=== PATIENT | male | born 1975 | race Caucasian/White ===

== ENCOUNTER 2022-12-06 10:19 | Outpatient (OUT) | payer BC, SELFPAY ==
[2022-12-06 11:19] LABS: Basophils Absolute Auto 0.1 10^3/uL (0.0-0.1); Basophils Percent Auto 0.5 % (0.2-2.0); Eosinophils Absolute Auto 0.2 10^3/uL (0.0-0.7); Eosinophils Percent Auto 1.1 % (0.9-7.0); Hemoglobin 15.4 g/dL (14.0-18.0); Immature Granulocytes Abs Auto 0.05 10^3/uL (0.00-0.03); Immature Granulocytes Pct Auto 0.4 % (0.0-0.5); Lymphocytes Absolute Auto 3.1 10^3/uL (1.2-3.8); Lymphocytes Percent Auto 22.8 % (20.5-60.0); Mean Corpuscular HGB Conc 34.2 g/dL (29.9-35.2); Mean Corpuscular Hemoglobin 32.4 pg (25.9-34.0); Mean Corpuscular Volume 94.7 fL (80.0-94.0); Mean Platelet Volume 10.6 fL (9.5-13.5); Monocytes Absolute Auto 0.8 10^3/uL (0.3-0.8); Monocytes Percent Auto 5.9 % (1.7-12.0); Neutrophils Absolute Auto 9.4 10^3/uL (1.4-6.5); Neutrophils Percent Auto 69.3 % (43.0-75.0); Platelet Count 249 10^3/uL (150-450); Red Blood Count 4.75 10^6/uL (4.70-6.10); Red Cell Distribution Width 13.2 % (11.0-15.0); White Blood Count 13.5 10^3/uL (4.0-11.0)
[2022-12-06 11:26] LABS: Estimated Average Glucose 105 mg/dL; Glycohemoglobin A1C 5.3 % (4.5-6.2)
[2022-12-06 11:43] LABS: Prostate Specific Antigen Scrn 1.11 ng/mL (<=4.00)
[2022-12-06 12:32] LABS: Alanine Aminotransferase 12 U/L (16-63); Albumin Globulin Ratio 1.2; Albumin Level 3.6 g/dL (3.4-5.0); Alkaline Phosphatase 51 U/L (46-116); Anion Gap 12.1; Aspartate Amino Transferase 14 U/L (15-37); BUN Creatinine Ratio 14.5; Bilirubin Direct 0.1 mg/dL (0.0-0.2); Bilirubin Total 0.3 mg/dL (0.2-1.0); Calcium 8.6 mg/dL (8.5-10.1); Carbon Dioxide 26.9 mmol/L (21.0-32.0); Chloride 108 mmol/L (98-107); Chol HDL Ratio 3.6; Cholesterol 151 mg/dL (<=200); Estimated GFR (African America >60 (>=60); Estimated GFR (Non-African Ame >60 (>=60); Glucose 85 mg/dL (74-106); HDL Cholesterol 42 mg/dL (40-60); Sodium 143 mmol/L (136-145); Thyroid Stimulating Hormone 1.589 uIU/mL (0.358-3.740); Total Protein 6.6 g/dL (6.4-8.2); Triglycerides 40 mg/dL (<=150)
== END 2022-12-06 10:20 | disposition home or self-care (01) ==
PROVIDERS: PCP Family Medicine; Visit Provider Family Medicine
DX: Z00.00 Encounter for general adult medical examination without abnormal findings (principal); E55.9 Vitamin D deficiency, unspecified; Z12.5 Encounter for screening for malignant neoplasm of prostate
CPT/HCPCS: 36415; 80048; 80061; 80076; 82306; 83036; 84443; 85025; G0103

== ENCOUNTER 2023-01-22 21:02 | Outpatient (OUT) | payer BC, SELFPAY | END 2023-01-22 21:03 | disposition home or self-care (01) | LOC: SLEEP 21:02 | PROVIDERS: PCP Family Medicine; Visit Provider Family Medicine | DX: G47.33 Obstructive sleep apnea (adult) (pediatric) (principal); G47.11 Idiopathic hypersomnia with long sleep time | CPT/HCPCS: 95810 ==

== ENCOUNTER 2023-04-25 12:57 | Outpatient (OUT) | payer BC, SELFPAY ==
[2023-04-25 13:06] LABS: Hemoglobin 15.5 g/dL (14.0-18.0)
== END 2023-04-25 12:58 | disposition home or self-care (01) ==
PROVIDERS: PCP Family Medicine; Visit Provider Family Medicine
DX: R06.02 Shortness of breath (principal)
CPT/HCPCS: 36415; 85018

== ENCOUNTER 2023-05-06 08:09 | Emergency (ER) | payer BC, SELFPAY ==
[2023-05-06 08:12] VITALS: BP 126/76; PULSE 78; RESP 18; TEMP 36.6; O2SAT 97; BMI 19.8
--- NOTE | 2023-05-06 08:25 | ED.NECK1 ---
HPI - Neck Pain/Injury General Chief Complaint: Neck Pain/Injury Stated Complaint: NECK PAIN Time Seen by Provider: 05/06/23 08:20 Source: patient Mode of arrival: walk-in Limitations: no limitations History of Present Illness HPI Narrative: Patient woke yesterday with left posterolateral neck pain,. No known injury. He said that the musculature is tight pain worse when turning head to the left. he holds the head slightly turned and side bent to the right. He took Tizanidine without any relief. No fever or chills. No other symptoms. Related Data Previous Rx's Medication Instructions Recorded methocarbamol 750 mg tablet 750 mg PO Q6H PRN pain #30 tabs 05/06/23 nabumetone 750 mg tablet 750 mg PO BID PRN pain #20 tabs 05/06/23 Allergies Allergy/AdvReac Type Severity Reaction Status Date / Time No Known Drug Allergies Allergy Verified 05/06/23 08:12 PFSH PFSH Social History Smoking status: Current every day smoker Exam Narrative Exam Narrative: Nurses notes and vital signs reviewed and patient is not hypoxic. afebrile General: Well-appearing and in no apparent distress. Skin: Warm, dry, no pallor noted. No rash. Head: Normocephalic, atraumatic. Neck: Supple, no lymphadenopathy. Left posterolateral tenderness. Holds head slightly sidebent and rotated to the right. Eye: Pupils are equal, round and EOMI. No scleral icterus. Cardiovascular: Regular Rate and Rhythm without murmur, gallop or rub. Respiratory: No accessory muscle use or respiratory distress. Lungs are clear to auscultation, no wheezing, rales or rhonchi Back: No midline thoracic or lumbar vertebral tenderness. Superior trapezius tenderness bilaterally. Musculoskeletal: normal ROM, no calf or popliteal tenderness, no lower extremity edema/swelling Neurological: A&O x4. No cranial nerve dysfunction observed. No truncal ataxia. Moves all extremities. Sensation intact. Psychiatric: Cooperative and interactive. Normal mood and affect. Constitutional Vital Signs, click to edit/add: Last Vital Signs Temp 98 F 05/06/23 08:12 Pulse 78 05/06/23 08:12 Resp 18 05/06/23 08:12 BP 126/76 05/06/23 08:12 Pulse Ox 97 05/06/23 08:12 O2 Del Method Room Air 05/06/23 08:12 Course Vital Signs Vital signs: Vital Signs Temperature 98 F 05/06/23 08:12 Pulse Rate 78 05/06/23 08:12 Respiratory Rate 18 05/06/23 08:12 Blood Pressure 126/76 05/06/23 08:12 Pulse Oximetry 97 05/06/23 08:12 Oxygen Delivery Method Room Air 05/06/23 08:12 Temperature 98 F 05/06/23 08:12 Pulse Rate 78 05/06/23 08:12 Respiratory Rate 18 05/06/23 08:12 Blood Pressure 126/76 05/06/23 08:12 Pulse Oximetry 97 05/06/23 08:12 Oxygen Delivery Method Room Air 05/06/23 08:12 MDM - Neck Pain/Injury MDM Narrative Medical decision making narrative: Patient given IM Solumedrol and Toradol for the pain. Discharged home with prescriptions for Relafen and Robaxin. Discussed application of heat to the area and stretching to resolve the torticollis Discharge Plan Discharge Chief Complaint: Neck Pain/Injury Clinical Impression: Torticollis Patient Disposition: Home, Self-Care Time of Disposition Decision: 08:23 Prescriptions / Home Meds: New nabumetone 750 mg tablet 750 mg PO BID PRN (Reason: pain) Qty: 20 0RF methocarbamol 750 mg tablet 750 mg PO Q6H PRN (Reason: pain) Qty: 30 0RF Instructions: Spasmodic Torticollis (ED) Stand Alone Forms: Portal Instructions Referrals: Sarmad Rosenberg MD [Primary Care Provider] - 1 week
[2023-05-06] MEDS: METHYLPREDNISOLONE SOD SUCC PF 125 MG/2 ML VIAL IM (08:38)
[2023-05-06] MEDS: KETOROLAC TROMETHAMINE 60 MG/2 ML VIAL IM (08:38)
--- OUTSIDE RECORDS SUMMARY | 2023-05-14 05:27 | XMS_ITS | CCD ---
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 Name Role Phone SARMAD JEFFERSON Primary Care Physician NILL ., DR RHODES Admitting Unavailable NILL ., DR RHODES Attending Unavailable NILL ., DR RHODES Consulting Unavailable NADERER, DR SARMAD Mora Primary Care Unavailable AMBAR MCMAHON Consulting Unavailable BURHANMELISA KNIGHT Consulting Unavailable NILL ., DR RHODES Attending Unavailable NILL ., DR RHODES Admitting Unavailable NILL ., DR RHODES Attending Unavailable NILL ., DR RHODES Admitting Unavailable NILL, Meagan Scales Attending Unavailable NILL, Meagan Scales Attending Unavailable NILL, Meagan Scales Attending Unavailable Allergies Allergy Classification Reported Allergen(s) Allergy Type Date of Onset Reaction(s) Facility (1 source) No Known Medication Allergies; Translations: [No Known Medication Allergies] Propensity to adverse reactions (disorder) [facility] Repository Medications Current Medications Medication Drug Class(es) Dates Sig (Normalized) Sig (Original) ARIPiprazole 5 mg oral tablet (2 sources) Atypical Antipsychotic Start: 03-15-2022 take 1 tablet by mouth once daily aripiprazole 5 mg Tab 5 mg = 1 tab(s), Oral, Daily, Refills(s) 0 Start Date: 03/15/22 Status: Ordered citalopram 40 mg oral tablet (2 sources) Serotonin Reuptake Inhibitor Start: 03-15-2022 CeleXA 40 mg Tab 20 mg = 0.5 tab(s), Oral, Daily, Refills(s) 0 Start Date: 03/15/22 Status: Ordered hyoscyamine sulfate 0.125 mg oral tablet (2 sources) Start: 03-15-2022 take 1 tablet by mouth four times daily Levsin 0.125 mg SL Tab 0.125 mg = 1 tab(s), Oral, QID, Refills(s) 0 Start Date: 03/15/22 Status: Ordered meloxicam 15 mg oral tablet (2 sources) Nonsteroidal Anti-inflammatory Drug Start: 03-15-2022 take 1 tablet by mouth once daily meloxicam 15 mg oral tablet 15 mg = 1 tab(s), Oral, Daily, Refills(s) 0 Start Date: 03/15/22 Status: Ordered polyethylene glycol 3350 022610 mg / potassium chloride 1480 mg / sodium bicarbonate 5720 mg / sodium chloride 40680 mg powder for oral solution (1 source) Osmotic Laxative Start: 06-21-2022 NuLYTELY Avila oral powder for reconstitution 240 mL, Oral, Daily, 480 mL, Refill(s) 0, as directed, [facility] #[id number], 187.9, cm, 06/21/22 13:47:00 EST, Height/Length Dosing, 76.8, kg, 06/21/22 13:47:00 EST, Weight Dosing Start Date: 06/21/22 Status: Ordered tiZANidine 4 mg oral tablet (2 sources) Central alpha-2 Adrenergic Agonist Start: 03-15-2022 take 1 tablet by mouth three times daily tiZANidine 4 mg Tab 4 mg = 1 tab(s), Oral, TID, Refills(s) 0 Start Date: 03/15/22 Status: Ordered valACYclovir 1000 mg oral tablet (2 sources) Herpesvirus Nucleoside Analog DNA Polymerase Inhibitor, Herpes Simplex Virus Nucleoside Analog DNA Polymerase Inhibitor, Herpes Zoster Virus Nucleoside Analog DNA Polymerase Inhibitor Start: 03-15-2022 take 1 tablet by mouth once daily Valtrex 1 g Tab 1 gm = 1 tab(s), Oral, Daily, Refills(s) 0 Start Date: 03/15/22 Status: Ordered Vitamin D3 2000 intl units (2 sources) Start: 03-15-2022 take 1 tablet by mouth once daily Vitamin D3 2000 intl units = 1 tab(s), Oral, Daily, Refills(s) 0 Start Date: 03/15/22 Status: Ordered Problems Problem Classification Problem Date Documented Da te Episodic/Chronic Abdominal pain (3 sources) Right lower quadrant pain; Translations: [Right lower quadrant pain] Onset: 03-29-2022 Episodic Anxiety disorders (2 sources) Generalized anxiety disorder 03-15-2022 Chronic Mood disorders (2 sources) Major depressive disorder 03-15-2022 Chronic Nutritional deficiencies (2 sources) Vitamin D deficiency 03-15-2022 Chronic Other gastrointestinal disorders (2 sources) Irritable bowel syndrome with diarrhea 03-15-2022 Chronic Other gastrointestinal disorders (3 sources) Diarrhea; Translations: [Diarrhea, unspecified] Onset: 03-29-2022 Episodic Other screening for suspected conditions (not mental disorders or infectious disease) (5 sources) Screening for malignant neoplasm of colon done; Translations: [Encounter for screening for malignant neoplasm of colon] Onset: 06-21-2022 Episodic Residual codes; unclassified (3 sources) Tobacco user; Translations: [Tobacco use] Onset: 06-21-2022 03-15-2022 Episodic Residual codes; unclassified (1 source) Tobacco use; Translations: [TOBACCO USE] Onset: 08-23-2022 Episodic Screening and history of mental health and substance abuse codes (1 source) Tobacco use and exposure - finding 06-21-2022 Chronic Spondylosis; intervertebral disc disorders; other back problems (2 sources) Chronic low back pain 03-15-2022 Episodic Unclassified (2 sources) Body mass index 20-24 - normal 03-29-2022 Unclassified (1 source) Patient encounter status 06-21-2022 Viral infection (2 sources) Genital herpes simplex 03-15-2022 Chronic Results Test Name Value Interpretation Reference Range Facil ity Outside Colonoscopyon 2022 Outside Colonoscopy [id number]#1.00CD:127 [facility] Reminderson 08-22-2022 Reminders - From: Donna Reyna LPN To: GSN - Clinical; Sent: 08/22/2022 14:31:26 EDT Show up: 07/23/2032 07:00:00 EST Subject: colonoscopy recall Due Date/Time: 08/21/2032 07:00:00 EDT Reminder/Recall Patient is due for screening colonoscopy 08/21/2032. Normal [facility] Pre-Certification Formon Pre-Certification Form [id number]#1.00CD:127 Normal [facility] Ambulatory Visit Summaryon 0 06-26-2022 Ambulatory Visit Summary PRIMO ODOM :1975 Visit Date:06/21/2022 Ambulatory Visit Instructions Your Diagnosis Screening for malignant neoplasm of colon Tobacco use Your Care Team Attending Physician - SHAUNNA GOLDSTEIN, Meagan Scales Primary Care Physician - SARMAD JEFFERSON MD This Is Your Medications List polyethylene glycol 3350 with electrolytes (NuLYTELY Avila oral powder for reconstitution) Contact prescribing physician if questions or concerns aripiprazole (aripiprazole 5 mg Tab) cholecalciferol (Vitamin D3 2000 intl units) citalopram (CeleXA 40 mg Tab) hyoscyamine (Levsin 0.125 mg SL Tab) meloxicam (meloxicam 15 mg oral tablet) tizanidine (tiZANidine 4 mg Tab) valacyclovir (Valtrex 1 g Tab) Procedures Performed Left hydrocelectomy, Strabismus operation, Tonsillectomy. Medications What How Much When Instructions New polyethylene glycol 3350 with electrolytes (NuLYTELY Avila oral powder for reconstitution) 240 Milliliter By Mouth Every day as directed Pickup at [facility] #[id number] Unchanged aripiprazole (aripiprazole 5 mg Tab) 1 Tablets By Mouth Every day Contact prescribing physician if questions or concerns Unchanged cholecalciferol (Vitamin D3 2000 intl units) 1 Tablets By Mouth Every day Contact prescribing physician if questions or concerns Unchanged citalopram (CeleXA 40 mg Tab) 0.5 Tablets By Mouth Every day Contact prescribing physician if questions or concerns Unchanged hyoscyamine (Levsin 0.125 mg SL Tab) 1 Tablets By Mouth 4 times a day Contact prescribing physician if questions or concerns Unchanged meloxicam (meloxicam 15 mg oral tablet) 1 Tablets By Mouth Every day Contact prescribing physician if questions or concerns Unchanged tizanidine (tiZANidine 4 mg Tab) 1 Tablets By Mouth 3 times a day Contact prescribing physician if questions or concerns Unchanged valacyclovir (Valtrex 1 g Tab) 1 Tablets By Mouth Every day Contact prescribing physician if questions or concerns Pharmacy Information [facility] #[id number]: [id number], [place] [id number] [phone] Allergies No Known Allergies No Known Medication Allergies Problems Ongoing - Any problem that you are currently receiving treatment for. BMI 21.0-21.9, adult Chronic left-sided low back pain Frequent loose stools KATHY (generalized anxiety disorder) Genital herpes Irritable bowel syndrome with diarrhea Lower abdominal pain Major depressive disorder Screening for malignant neoplasm of colon Tobacco use Tobacco user Vitamin D deficiency Normal [facility] Consent for Procedure/Surger yon 06-25-2022 Consent for Procedure/Surgery [id number]:127 Normal [facility] Consent for Procedure/Surger yon 06-24-2022 Consent for Procedure/Surgery [id number]:127 Normal [facility] General Surgery Office/Clini c Noteon 06-21-2022 General Surgery Office/Clinic Note Chief Complaint update H&P for colonoscopy HPI Staff Presents to update H&P for planned colonoscopy. Last evaluation 03/29 with complaint of loose stools and abdominal pain, these symptoms have since resolved. Denies rectal pain or bleeding. Denies nausea or vomiting. No unexplained weight loss. Never had colonoscopy in the past. No known family history of colon cancer. History of Present Illness 46 yo male initially seen 03/2022 for frequent loose stools; these symptoms have resolved, believes it was due to a medication; no blood in stools, no abdominal complaints; no previous abdominal operations or colonoscopy; on Meloxicam prn, no asa, no SBE prophylaxis; no fmhx of GI malignancy or IBD; smokes daily. Review of Systems PHQ Score Initial Depression Screen Score: 0 ROS - Provider Constitutional: no fever, no sweats, no weight loss. Eyes: no glasses, no blurred vision, no visual loss. ENMT: no dentures, no hoarseness, no swallowing difficulties, no hearing loss, no ear infection(s), no nose bleeds. Cardiovascular: normal blood pressure, no chest pain, regular heartbeat, no heart murmur. Respiratory: no shortness of breath, no cough, no asthma, no wheezing. Gastrointestinal: no nausea, no vomiting, no diarrhea, no constipation, no blood in stool, no change in bowel habits, no abdominal pain, no hepatitis. Genitourinary: no kidney stones, no urine infection, no dysuria. Musculoskeletal: no pain, no weakness. Skin: no changing moles, no rash, no skin lumps. Neurologic: no seizures, no epilepsy, no headache. Psychiatric: no emotional or psychiatric problem. Heme/Lymph: no bleeding problems, no anemia, no blood clots, no transfusions. Allergy/Immunologic: no swollen lymph nodes/glands, no IV drug abuse. Other: Additional ROS info: Except as noted in the above Review of Systems and in the History of Present Illness, all other systems have been reviewed and are negative or noncontributory. Physical Exam Vitals & Measurements HR: 70(Peripheral) RR: 16 BP: 112/72 HT: 74 in HT: 187.9 cm WT: 76.8 kg WT: 168.96 lb BMI: 21.75 HEENT: normal conjunctiva, sclera clear, no scleral icterus, EOM intact, PERRLA, oral mucosa moist without lesions. Neck: trachea midline, no mass, symmetric, no thyromegaly or nodules, no adenopathy Respiratory: lungs CTA, respirations non labored. Cardiovascular: regular rate and rhythm, no murmur, no pedal edema or varicosities. Gastrointestinal: soft, non distended, no tenderness, no masses, no palpable hernias, diastasis recti no, no hepatosplenomegaly; normal bs Lymphatic: no cervical adenopathy, no supraclavicular adenopathy Musculoskeletal: normal gait, digits and nails without infection, nodes, cyanosis, clubbing. Skin: no rashes, no lesions, no ulcers, no subcutaneous nodules, induration. Psychiatric/Neuro: oriented to time, place, person, judgement normal, affect appropriate for age, insight intact, no focal deficits. Tests: review of old records completed, Discussed surgical options, risks, and possible complications with patient. Assessment/Plan 1. Screening for malignant neoplasm of colon (Z12.11: Encounter for screening for malignant neoplasm of colon) plan colonoscopy under anesthesia, informed consent obtained. 2. Tobacco use (Z72.0: Tobacco use) We strongly recommend to quit tobacco use. Cigarette smoking harms nearly every organ of the body, causes many diseases, and reduces the health of smokers in general. Quitting smoking lowers your risk for smoking-related diseases and can add years to your life. We encourage you to visit www.smokefree.gov access to helpful resources including free telephone support. If you decide on prescription treatment to help you quit, your family doctor would be happy to provide these. Orders: polyethylene glycol 3350 with electrolytes, 240 mL, Oral, Daily, 480 mL, Refill(s) 0, as directed, [facility] #[id number], 187.9, cm, 06/21/22 13:47:00 EST, Height/Length Dosing, 76.8, kg, 06/21/22 13:47:00 EST, Weight Dosing Follow-up No qualifying data available Problem List/Past Medical History Ongoing BMI 21.0-21.9, adult Chronic left-sided low back pain Frequent loose stools KATHY (generalized anxiety disorder) Genital herpes Irritable bowel syndrome with diarrhea Lower abdominal pain Major depressive disorder Screening for malignant neoplasm of colon Tobacco use Tobacco user Vitamin D deficiency Historical No qualifying data Procedure/Surgical History Left hydrocelectomy, Strabismus operation, Tonsillectomy. Medications aripiprazole 5 mg Tab, 5 mg= 1 tab(s), Oral, Daily CeleXA 40 mg Tab, 20 mg= 0.5 tab(s), Oral, Daily Levsin 0.125 mg SL Tab, 0.125 mg= 1 tab(s), Oral, QID meloxicam 15 mg oral tablet, 15 mg= 1 tab(s), Oral, Daily NuLYTELY Avila oral powder for reconstitution, 240 mL, Oral, Daily tiZANidine 4 mg Tab, 4 mg= 1 tab(s), Oral, TID Valtrex 1 g Tab, 1 gm= 1 tab(s), Oral, Daily Vitamin D3 2000 intl (more content not included)... [facility] Comment on above: Result Comment: Elec tronically Signed By: SHAUNNA GOLDSTEIN, Meagan Michele\Date and Time Signed: 06/21/22 14:27 EST Pre-Certification Formon Pre-Certification Form [id number]:127 [facility] Facesheeton 04-02-2022 Facesheet [id number] :127 [facility] Consent for Procedure/Surger yon 04-01-2022 Consent for Procedure/Surgery [id number]:127 Normal [facility] Physician Referralon 022 Physician Referral [id number]:127 Normal [facility] Vital Signs Date Time Vital Sign Value Performing Clinician Aletha reyes 06-21-2022 13:43-0500 Blood Pressure Location Meagan BAINS [facility] [place] 06-21-2022 13:43-0500 Diastolic blood pressure 72 mm[Hg] Meagan BAINS [facility] [place] 06-21-2022 13:43-0500 Heart rate 70 /min Meagan BAINS [facility] [place] 06-21-2022 13:43-0500 Respiratory rate 16 /min Meagan VALADEZL [facility] [place] 06-21-2022 13:43-0500 Systolic blood pressure 112 mm[Hg] Meagan BAINS [facility] [place] 03-29-2022 14:47-0400 Blood Pressure Location Meagan BAINS [facility] [place] 03-29-2022 14:47-0400 Diastolic blood pressure 80 mm[Hg] Meagan BAINS [facility] [place] 03-29-2022 14:47-0400 Heart rate 72 /min Meagan BAINS [facility] [place] 03-29-2022 14:47-0400 Respiratory rate 16 /min Meagan BAINS [facility] [place] 03-29-2022 14:47-0400 Systolic blood pressure 118 mm[Hg] Meagan BAINS [facility] [place] Encounters Encounter Date Encounter Type Care Provider Facility Start: 08-21-2022 End: 08-22-[address] MEAGAN BAINS . Facility:[facility] Start: 06-21-2022 End: 06-22-2022 ambulatory Meagan BAINS [facility] Start: 06-21-2022 End: 06-21-2022 Patient encounter procedure Meagan BAINS [facility] Start: 05-01-[address] MEAGAN Maya Facil ity:[facility] Start: 04-27-[address] MEAGAN Maya Facil ity:[facility] Start: 03-29-2022 End: 03-30-2022 ambulatory Meagan BAINS [facility] [place] Start: 03-29-2022 End: 03-29-2022 Patient encounter procedure Meagan BAINS [facility] Start: 03-12-2022 ambulatory Meagan BAINS Facility: [facility] Procedures Date Procedure Procedure Detail Performing Clinician Left hydrocelectomy Meagan BAINS Strabismus surgery Meagan Lesli ESPINAL Tonsillectomy Meagan SHAUNNA Immunizations Immunization Date Immunization Notes Care Provider [facility] 04-06-2022 influenza virus vaccine, unspecified formulation Meagan BAINS [facility] [place] 04-06-2022 SARS-CoV-2 (COVID-19 ) [id number] Meagan BAINS [facility] [place] 05-25-2021 SARS-CoV-2 (COVID-19 ) mRNA-1273 vaccine Meagan RORYJasen [facility] [place] 10-07-2020 SARS-CoV-2 (COVID-19 ) mRNA-1273 vaccine Meagan RORYL [facility] [place] Comment on above: Result Comment: 2022: [id number] 09-09-2020 SARS-CoV-2 (COVID-19 ) mRNA-1273 vaccine Meagan BAINS [facility] Comment on above: Result Comment: 2022: [id number] Payers Date Payer Category Payer Unknown [id number] 2.16.84 [id number] 1975 Unknown [id number] 2.16.84 [id number] 1975 Unknown [id number] 2.16.84 [id number] 1975 Unknown [id number] 2.16.8 [id number] 1975 Unknown [id number] 2.16.8 [id number] 1975 Unknown [id number] 2.16.8 [id number] 1959 Unknown [id number] Social History Date Type Detail Facility Start: 03-29-2022 End: 06-21-2022 Tobacco smoking status Heavy tobacco smoker (finding) [facility] Tobacco smoking status Former sm okeless tobacco user, quit more than 30 days ago [facility] Sex Assigned At Male [facility] Functional Status Date Assessment Result Facility 06-21-2022 Functional Status N/A [facility] 03-29-2022 Functional Status N/A [facility] Clinical Note 08-21-2022 Note Date & Type Note Facility 08-21-2022 Note OPERATIVE NOTE OPERATION DATE: 08/21/2022 PREOPERATIVE DIAGNOSIS: Colorectal screening. POSTOPERATIVE DIAGNOSIS: Normal colonoscopy to cecum. PROCEDURE: Colonoscopy to cecum. SURGEON: Meagan Bains M.D. ANESTHESIA: Monitored anesthesia care. ESTIMATED BLOOD LOSS: Zero. INDICATIONS AND CONSENT: Patient is a 47-year-old male presents for colorectal screening. Indications, risks, benefits, alternatives of proceeding with colonoscopy were explained extensively to the patient, including the risks of bleeding, colon perforation or anesthetic complications. All of his questions were answered. Informed consent was obtained. PROCEDURE: Patient brought to the operating room, placed in the left lateral decubitus position. Monitored anesthesia care was provided. Rectal exam was performed which revealed no masses or blood. The scope was inserted into the anal canal. Under direct visualization was advanced. It was advanced to the cecum where cecal markings were clearly identified. Upon withdrawal of the scope, mucosal surfaces were carefully examined. There was noted to be a good prep. There were no mass lesions or polyps. No inflammatory changes or ulcerations. No significant diverticulosis. The scope was retroflexed in the anal canal. There were noted to be some prominent rectal vein. No significant hemorrhoidal disease. Scope was then withdrawn. Patient tolerated procedure well, was sent to recovery room in good condition. CC: Sarmad Jefferson M.D. [facility] Clinical Note 03-29-2022 Note Date & Type Note Facility 03-29-2022 Note Chief Complaint consultation for abdominal cramping and diarrhea HPI Staff 46 year old male presents on consultation from Dr. Jefferson and abdominal cramping and loose stools. Reports 1.5 months of stated symptoms. Bentyl was not effective and felt symptoms were actually worse. Currently taking Levsin BID which has been helpful. Cramping has resolved and stools are more formed. Denies rectal pain or bleeding. Denies nausea or vomiting. No unexplained weight loss. Never had colonoscopy in the past. No known family history of colon cancer or IBD. History of Present Illness 46 nh/o male with h/o KATHY, depression, chronic low back pain, referred for 1 1/2 month h/o ower abd crampy pain and loose stools; improved with Levsin; no N/V; no blood in stools or melena; no wt loss; no previous abdominal operations or endoscopy; long h/o intermittent loose stools, has been diagnosed with IBS; no fmhx of IBD or GI malignancy; on meloxicam, no asa, no SBE prophylaxis; smokes 1 1/2 ppd. Review of Systems PHQ Score Initial Depression Screen Score: 0 ROS - Provider Constitutional: no fever, no sweats, no weight loss. Eyes: no glasses, no blurred vision, no visual loss. ENMT: no dentures, no hoarseness, no swallowing difficulties, no hearing loss, no ear infection(s), no nose bleeds. Cardiovascular: normal blood pressure, no chest pain, regular heartbeat, no heart murmur. Respiratory: no shortness of breath, no cough, no asthma, no wheezing. Gastrointestinal: no nausea, no vomiting, no diarrhea, no constipation, no blood in stool, yes change in bowel habits, yes abdominal pain, no hepatitis. Genitourinary: no kidney stones, no urine infection, no dysuria. Musculoskeletal: no pain, no weakness. Skin: no changing moles, no rash, no skin lumps. Neurologic: no seizures, no epilepsy, no headache. Psychiatric: no emotional or psychiatric problem. Heme/Lymph: no bleeding problems, no anemia, no blood clots, no transfusions. Allergy/Immunologic: no swollen lymph nodes/glands, no IV drug abuse. Other: Additional ROS info: Except as noted in the above Review of Systems and in the History of Present Illness, all other systems have been reviewed and are negative or noncontributory. Physical Exam Vitals & Measurements HR: 72(Peripheral) RR: 16 BP: 118/80 HT: 74 in HT: 187.9 cm WT: 75 kg WT: 165 lb BMI: 21.24 HEENT: normal conjunctiva, sclera clear, no scleral icterus, EOM intact, PERRLA, oral mucosa moist without lesions. Neck: trachea midline, no mass, symmetric, no thyromegaly or nodules, no adenopathy Respiratory: lungs CTA, respirations non labored. Cardiovascular: regular rate and rhythm, no murmur, no pedal edema or varicosities. Gastrointestinal: soft, non distended, no tenderness, no masses, no palpable hernias, diastasis recti no, no hepatosplenomegaly; normal bs Lymphatic: no cervical adenopathy, Musculoskeletal: normal gait, digits and nails without infection, nodes, cyanosis, clubbing. Skin: no rashes, no lesions, no ulcers, no subcutaneous nodules, induration. Psychiatric/Neuro: oriented to time, place, person, judgement normal, affect appropriate for age, insight intact, no focal deficits. Tests: review of old records completed, Discussed surgical options, risks, and possible complications with patient. Assessment/Plan 1. Frequent loose stools (R19.7: Diarrhea, unspecified) plan colonoscopy under anesthesia for further evaluation, informed consent obtained. 2. Right lower quadrant pain (R10.31: Right lower quadrant pain) see # 1 Follow-up No qualifying data available Problem List/Past Medical History Ongoing BMI 21.0-21.9, adult Chronic left-sided low back pain Frequent loose stools KATHY (generalized anxiety disorder) Genital herpes Irritable bowel syndrome with diarrhea Lower abdominal pain Major depressive disorder Tobacco user Vitamin D deficiency Historical No qualifying data Procedure/Surgical History Left hydrocelectomy, Strabismus operation, Tonsillectomy. Medications aripiprazole 5 mg Tab, 5 mg= 1 tab(s), Oral, Daily CeleXA 40 mg Tab, 20 mg= 0.5 tab(s), Oral, Daily Levsin 0.125 mg SL Tab, 0.125 mg= 1 tab(s), Oral, QID meloxicam 15 mg oral tablet, 15 mg= 1 tab(s), Oral, Daily tiZANidine 4 mg Tab, 4 mg= 1 tab(s), Oral, TID Valtrex 1 g Tab, 1 gm= 1 tab(s), Oral, Daily Vitamin D3 2000 intl units, 1 tab(s), Oral, Daily Allergies No Known Allergies No Known Medication Allergies Social History Alcohol - Denies Alcohol Use, 03/29/2022 Substance Abuse - Denies Substance Abuse, 03/29/2022 Tobacco 10 or more cigarettes (1/2 pack or more)/day in last 30 days Tobacco Use:. Former smokeless tobacco user, quit more than 30 days ago Smokeless Tobacco Use:. Cigarettes, Oral, 1 per day. Started age 17.0 Years. Yes, 03/29/2022 Family History Diabetes mellitus type 1: Father. Diabetes mellitus type 2: Mother. Hypertension: Mother. [facility] Comment on above: Result Comment: Elec tronically Signed By: SHAUNNA GOLDSTEIN, Meagan Michele\Date and Time Signed: 03/29/22 15:14 EDT Evaluation + Plan note Note Date & Type Note Facility Evaluation + Plan note No data available for this section [facility] Discharge instructions Note Date & Type Note Facility Hospital Discharge instructions No data available for this section [facility] note Note Date & Type Note Facility Progress note No data available for this section [facility] [place] Summary Purpose Family History No Family History Records FoundNo Family History Records Found Advance Directives No Advanced Directives Records FoundNo Advanced Directives Records Found Additional Source Comments Patient Care team informatio n (unrecognized section and content) Personnel Name: SARMAD JEFFERSON MD Address: Address: [address] Personnel Name: SARMAD JEFFERSON MD Address: Address: [address] (unrecognized sect ion and content) No Status Records FoundNo Status Records Found INFORMATION SOURCE (unrecogn ized section and content) DATE CREATED AUTHOR 08/28/2022 [facility] DATE CREATED AUTHOR AUTHOR'S ORGANIZ ATION 09/03/2022 [facility] FOR RECORDS PERTAINING TO PATIENTS WHO ARE OR HAVE BEEN ENROLLED IN A CHEMICAL DEPENDENCY/SUBSTANCEABUSE PROGRAM, SOME INFORMATION MAY BE OMITTED. This clinical summary was aggregated from multiple sources. Caution should be exercised in using it in the provision of clinical care. This summary normalizes information from multiple sources, and as a consequence, information in this document may materially change the coding, format and clinical context of patient data. In addition, data may be omitted in some cases. CLINICAL DECISIONS SHOULD BE BASED ON THE PRIMARY CLINICAL RECORDS. [employer] provides no warranty or guarantee of the accuracy or completeness of information in this document.
== END 2023-05-06 08:43 | disposition home or self-care (01) ==
PROVIDERS: Emergency Provider Emergency Medicine; PCP Family Medicine
DX: M43.6 Torticollis (principal); F17.210 Nicotine dependence, cigarettes, uncomplicated
CPT/HCPCS: 96372; 99284; J2930

== ENCOUNTER 2023-05-09 12:20 | Outpatient (OUT) | payer BC, SELFPAY ==
--- NOTE | 2023-05-09 13:43 | RT_ITS ---
[facility] Test Date: 2023-05-09 Pat Name: PRIMO ODOM Department: Room: - Gender: Male Medicare Coordinator: Salo Hall RRT : 1975 Requested By: KARINE JEFFERSON Order Number: [id number] Reading MD: Sukhjinder Nava Interpretive Statements Pulmonary function testing was completed according to ATS criteria. Findings were considered accurate and reproducible. Both pre- and post-bronchodilator values utilized for spirometry. Spirometry (based on pre-bronchodilator values): -FEV1/FVC: Low normal @ 48% -FEV1: Moderately reduced @ 62% -FVC: Normal @ 101% -There is a partial bronchodilator response in FEV1 which meets >200mL increase but <12% change. Lung volumes by plethysmography (based on pre-bronchodilator values): -RV: Increased @ 201% -TLC: Increased @ 130% Diffusion capacity: -DLCO: Moderate reduction @ 58% when corrected for Hb 15.5g/dL Flow-volume loop: -Moderate obstructive pattern Impressions: -Spirometry suggests moderate obstruction without a positive bronchodilator response. An elevated RV and TLC suggest air trapping and hyperinflation respectively. There is a moderately reduced diffusion capacity. Overall study is compatible with COPD/emphysema. Clinical correlation required. Electronically Signed On 05-12-2023 17:23:02 EST by Sukhjinder Nava
[2023-05-09] MEDS: ALBUTEROL SULFATE 2.5 MG/3 ML VIAL NEB IH (13:44)
== END 2023-05-09 12:21 | disposition home or self-care (01) ==
LOC: CARD 12:21
PROVIDERS: PCP Family Medicine; Visit Provider Family Medicine
DX: R06.02 Shortness of breath (principal)
CPT/HCPCS: 94060; 94726; 94729; 99406

== ENCOUNTER 2023-05-14 20:59 | Outpatient (OUT) | payer BC, SELFPAY ==
--- OUTSIDE RECORDS SUMMARY | 2023-05-15 10:14 | XMS_ITS | CCD ---
Author Name Unknown Address [address] [place] [address] [address] [place] [address] Organization [facility] Care Team Providers Care Turkish Line Attendant Name Role Phone SARMAD JEFFERSON Primary Care Physician [phone] RHODES Admitting Unavailable NILL [...] Medication Allergies] Propensity to adverse reactions (disorder) [facility] Repository Medications Current Medications Medication Drug Class(es) [...] Date: 03/15/22 Status: Ordered polyethylene glycol 3350 375553 mg / potassium chloride 1480 mg / sodium bicarbonate 5720 mg / sodium chloride 57415 mg powder for oral solution (1 source) Osmotic Laxative Start: 06-21-2022 NuLYTELY Avila oral powder for reconstitution 240 mL, Oral, Daily, 480 mL, Refill(s) 0, as directed, [id number], 187.9, cm, 06/21/22 13:47:00 EST, Height/Length Dosing, [...] Facil ity Outside Colonoscopyon 2022 Outside Colonoscopy [id number]#1 .00CD:127 [facility] Reminderson 08-22-2022 Reminders - From: Donna Reyna LPN To: [facility] - Clinical; Sent: 08/22/2022 14:31:26 EDT Show up: 07/23/2032 07:00:00 EST Subject: colonoscopy recall Due Date/Time: 08/21/2032 07:00:00 EDT Reminder/Recall Patient is due for screening colonoscopy 08/21/2032. Normal [facility] Pre-Certification Formon Pre-Certification Form [id number]# 1.00CD:127 Normal [facility] Ambulatory Visit Summaryon 0 06-26-2022 Ambulatory Visit [...] Mouth Every day as directed Pickup at [facility] #[id number] Unchanged aripiprazole (aripiprazole 5 mg Tab) 1 [...] physician if questions or concerns Pharmacy Information [facility] #[id number]: [address] [place], [place] [id number] [phone] Allergies No Known Allergies No Known Medication Allergies Problems Ongoing - Any problem that you are currently receiving treatment for. BMI 21.0-21.9, adult Chronic left-sided low back pain Frequent loose stools KATHY (generalized anxiety disorder) Genital herpes Irritable bowel syndrome with diarrhea Lower abdominal pain Major depressive disorder Screening for malignant neoplasm of colon Tobacco use Tobacco user Vitamin D deficiency Normal [facility] Consent for Procedure/Surger yon 06-25-2022 Consent for Procedure/Surgery [id number]#1 .00CD:127 Normal [facility] Consent for Procedure/Surger yon 06-24-2022 Consent for Procedure/Surgery [id number]#1 .00CD:127 Normal [facility] General Surgery Office/Clini c Noteon 06-21-2022 General [...] Daily, 480 mL, Refill(s) 0, as directed, [facility][id number], 187.9, cm, 06/21/22 13:47:00 EST, Height/Length Dosing, [...] D3 2000 intl (more content not included)... [facility] Comment on above: Result Comment: Elec tronically Signed By: SHAUNNA GOLDSTEIN, Meagan Michele\Date and Time Signed: 06/21/22 14:27 EST Pre-Certification Formon Pre-Certification Form [id number]# 1.00CD:127 [facility] Facesheeton 04-02-2022 Facesheet [id number]#1 .00CD:127 [facility] Consent for Procedure/Surger yon 04-01-2022 Consent for Procedure/Surgery [id number]#1 .00CD:127 Normal [facility] Physician Referralon 022 Physician Referral [id number]#1 .00CD:127 Normal [facility] Vital Signs Date Time Vital Sign Value Performing Clinician Aletha reyes 06-21-2022 13:43-0500 Blood Pressure Location [employer] [facility] [place] 06-21-2022 13:43-0500 Diastolic blood pressure 72 mm[Hg] Meagan [facility] [place] 06-21-2022 13:43-0500 Heart rate 70 /min [employer] [facility] [place] 06-21-2022 13:43-0500 Respiratory rate 16 /min Meagan [facility] [place] 06-21-2022 13:43-0500 Systolic blood pressure 112 mm[Hg] Meagan [facility] [place] 03-29-2022 14:47-0400 Blood Pressure Location [employer] [facility] [place] 03-29-2022 14:47-0400 Diastolic blood pressure 80 mm[Hg] Meagan NILL [facility] [place] 03-29-2022 14:47-0400 Heart rate 72 /min [facility] [place] 03-29-2022 14:47-0400 Respiratory rate 16 /min [facility] [place] 03-29-2022 14:47-0400 Systolic blood pressure 118 mm[Hg] Meagan NILL [facility] [place] Encounters Encounter Date Encounter Type Care Provider Facility Start: 08-21-2022 End: 08-22-[address] MEAGAN BAINS . Facility: Start: 06-21-2022 End: 06-22-2022 ambulatory Meagan BAINS Facility:[facility] Start: 06-21-2022 End: 06-21-2022 Patient encounter procedure Meagan BAINS [facility] Start: 05-01-[address] MEAGAN Maya Facil ity:H1 Start: 04-27-[address] MEAGAN Maya Facil ity:H1 Start: 03-29-2022 End: 03-30-2022 ambulatory Meagan BAINS Facility: [facility] Start: 03-29-2022 End: 03-29-2022 Patient encounter procedure Meagan BAINS [facility] Start: 03-12-2022 ambulatory Meagan BAINS Facility: [facility] Procedures Date Procedure Procedure Detail Performing Clinician Left hydrocelectomy Meagan BAINS Strabismus surgery Meagan Lesli ESPINAL Tonsillectomy Meagan SHAUNNA Immunizations Immunization Date Immunization Notes Care Provider [facility] 04-06-2022 influenza virus vaccine, unspecified formulation Meagan BAINS [facility] [place] 04-06-2022 SARS-CoV-2 (COVID-19 ) [id number] Meagan BAINS [facility] [place] 05-25-2021 SARS-CoV-2 (COVID-19 ) mRNA-1273 vaccine Meagan RORYJasen [facility] [place] 10-07-2020 SARS-CoV-2 (COVID-19 ) mRNA-1273 vaccine Meagan BAINS [facility] [place] Comment on above: Result Comment: 2022: [id number] 09-09-2020 SARS-CoV-2 (COVID-19 ) mRNA-1273 vaccine Meagan BAINS [facility] Comment on above: Result Comment: 2022: [id number] Payers Date Payer Category Payer Unknown [id number] 2.16.84 [id number] 1975 Unknown [id number] 2.16.84 [id number] 1975 Unknown [id number] 2.16.84 [id number] 1975 Unknown [id number] 2.16.8 [id number] 1975 Unknown [id number] 2.16.8 [id number] 1975 Unknown [id number] 2.16.8 [id number] 1959 Unknown [id number] Social History Date Type Detail Facility Start: 03-29-2022 End: 06-21-2022 Tobacco smoking status Heavy tobacco smoker (finding) [facility] Tobacco smoking status Former sm okeless tobacco user, quit more than 30 days ago [facility] Functional Status Date Assessment Result Facility 06-21-2022 Functional Status N/A [facility] 03-29-2022 Functional Status N/A [facility] Clinical Note 08-21-2022 Note Date & Type [...] good condition. CC: Sarmad Jefferson M.D. [facility] Clinical Note 03-29-2022 Note Date & Type [...] Diabetes mellitus type 2: Mother. Hypertension: Mother. [facility] Comment on above: Result Comment: Elec tronically Signed By: SHAUNNA GOLDSTEIN, Meagan Michele\Date and Time Signed: 03/29/22 15:14 EDT Evaluation + Plan note Note Date & Type Note Facility Evaluation + Plan note No data available for this section [facility] Discharge instructions Note Date & Type Note Facility Hospital Discharge instructions No data available for this section [facility] note Note Date & Type Note Facility Progress note No data available for this section [facility] [place] Summary Purpose Family History No Family History Records FoundNo Family History Records Found Advance Directives No Advanced Directives Records FoundNo Advanced Directives Records Found Additional Source Comments Patient Care team informatio n (unrecognized section and content) Personnel Name: SARMAD JEFFERSON MD Address: Address[address] Personnel Name: SARMAD JEFFERSON MD Address: Address: [address] (unrecognized sect ion and content) No Status Records FoundNo Status Records Found INFORMATION SOURCE (unrecogn ized section and content) DATE CREATED AUTHOR 08/28/2022 [facility] DATE CREATED AUTHOR AUTHOR'S ORGANIZ ATION 09/03/2022 [facility] FOR RECORDS PERTAINING TO PATIENTS WHO [...] BE BASED ON THE PRIMARY CLINICAL RECORDS. [facility] [employer] provides no warranty or guarantee of the accuracy or completeness of information in this document.
== END 2023-05-14 21:00 | disposition home or self-care (01) ==
LOC: SLEEP 21:00
PROVIDERS: PCP Family Medicine; Visit Provider Family Medicine
DX: G47.33 Obstructive sleep apnea (adult) (pediatric) (principal)
CPT/HCPCS: 95811

== ENCOUNTER 2025-04-25 18:21 | Emergency (ER) | payer SELFPAY ==
[2025-04-25] VITALS (18 sets, daily range): BP systolic 133; BP diastolic 89; PULSE 62–81; TEMP 37.1; O2SAT 94–98; BMI 19.9
--- NOTE | 2025-04-25 18:32 | ECG_ITS ---
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 Measurements Intervals [place] Rate: 72 P: 78 CA: 136 QRS: 86 QRSD: 84 T: 81 QT: 364 QTc: 389 Interpretive Statements 1100 Sinus rhythm 2420 RSR (QR) in lead V1/V2, consistent with right ventricular conduction delay 9130 borderline ECG No previous ECG available for comparison Electronically Signed On 04-25-2025 22:33:00 EST by VIKTORIA KEY M.D.
--- NOTE | 2025-04-25 18:32 | XR_ITS ---
The [address] [address] Patient Name: PRIMO ODOM MRN: [id number] date: 1975 Sex: M Assigned Patient Location: ED.MAIN Current Patient Location: ED.MAIN Accession/Order Number: [id number] Exam Date: 04/25/2025 18:50 Report Date: 04/25/2025 19:53 At the request of: MARIANA MANE MD Procedure: XR chest 1V PA CHEST: CLINICAL HISTORY: cp COMPARISON: None The heart is normal in size. The lungs are clear. The pulmonary vasculature is normal. Mediastinum and hilar regions are unremarkable. No pleural effusions are seen. Visualized bones are intact. XR/XR chest 1V IMPRESSION: Negative acute pleural-parenchymal disease. Impression dictated by: Alhaji Chou M.D. 04/25/2025 7:53 PM Dictation Location: [place] [address] Electronically authenticated by: [id number] Y Date: 04/25/2025 19:53
[2025-04-25 18:46] LABS: Hematocrit 44.9 % (42.0-54.0); Hemoglobin 15.6 g/dL (14.0-18.0); Immature Granulocytes Abs Auto 0.03 10^3/uL (0.00-0.03); Immature Granulocytes Pct Auto 0.3 % (0.0-0.5); Lymphocytes Absolute Auto 4.4 10^3/uL (1.2-3.8); Mean Corpuscular HGB Conc 34.7 g/dL (29.9-35.2); Mean Corpuscular Hemoglobin 31.0 pg (25.9-34.0); Mean Corpuscular Volume 89.3 fL (80.0-94.0); Platelet Count 253 10^3/uL (150-450); Red Blood Count 5.03 10^6/uL (4.70-6.10); White Blood Count 11.6 10^3/uL (4.0-11.0)
[2025-04-25 19:03] LABS: Alanine Aminotransferase 20 U/L (16-63); Albumin Globulin Ratio 1.3; Albumin Level 4.1 g/dL (3.4-5.0); Alkaline Phosphatase 68 U/L (46-116); Anion Gap 13.3; Aspartate Amino Transferase 12 U/L (15-37); Blood Urea Nitrogen 12.0 mg/dL (7.0-18.0); Calcium 9.0 mg/dL (8.5-10.1); Carbon Dioxide 25.4 mmol/L (21.0-32.0); Chloride 105 mmol/L (98-107); Estimated GFR (African America >60 (>=60 mL/min/1.73m^2); Estimated GFR (Non-African Ame >60 (>=60 mL/min/1.73m^2); Globulin 3.2 g/dL; Glucose 88 mg/dL (74-106); Potassium 3.7 mmol/L (3.5-5.1); Sodium 140 mmol/L (136-145); Total Protein 7.3 g/dL (6.4-8.2)
--- OUTSIDE RECORDS SUMMARY | 2025-04-25 19:22 | XMS_ITS | Clinical Summary ---
Author Organization [facility] Healthcare Address [address] [place] [address] Care Team Providers Care Terrazzo Worker Apprentice Name Role Phone Sarmad Rosenberg MD Primary Care Provider [phone] Allergies Active AllergyReactionsCriticalityNoted NjqsDltvkwgzKbyzfeqtu51/25/2024 Duloxetine IuvChvlajqkrHwqvyi14/19/0149Eqhenslys59/25/2024 Medications MedicationSigDispense QuantityRefillsLast FilledStart DateEnd DateStatus pantoprazole (ProtoNix) 40 MG EC tablet Indications:Gastroesophageal reflux disease without esophagitisTake 1 tablet (40 mg) by mouth in the morning. Take before meals. Do not crush, chew, or split.. 90 tablet 4Active Additional Information Patient not taking.Reported on 08/04/2024 valACYclovir (Valtrex) 1 g tablet Indications:Genital herpes in menTake 1 tablet (1,000 mg) by mouth Daily 90 tablet 5Active nicotine polacrilex (Nicorette) 2 MG gum Indications:Tobacco use disorder, continuousChew 1 each (2 mg) if needed for smoking cessation 100 each 5Active albuterol HFA 90 mcg/act inhaler Indications:COPD, moderate (HCC)INHALE 2 PUFFS EVERY 4 HOURS IF NEEDED FOR WHEEZING. 6.7 g 5Active sucralfate (Carafate) 1 g tablet Take 1 g by mouth5Active omeprazole (PriLOSEC) [address] capsule Take 40 mg by mouth in the morning and 40 mg in the evening.5Active Active Problems ProblemNoted DateDiagnosed DateCentrilobular klwbuzdul26/12/2025 Assessment & Plan (08/04/2024 2:59 PM EDT): Breathing stable and use albuterol PRN. Stressed need to stop smoking. Encounter for preoperative ppxlsoofns18/12/2025 Assessment & Plan (08/04/2024 3:00 PM EDT): Able to proceed with upcoming surgery at low risk for complications. No history of DM, HTN, or CAD.History of COPD but stable with PRN albuterol. Recently had anesthesia during endoscopy and tolerated well. Calculus of gallbladder without cholecystitis without otitjnnhvji00/12/2025 Assessment & Plan (08/04/2024 2:59 PM EDT): Follow up for surgery. Vmsrnck0106/04/2024Tobacco use disorder, xumxvudpni21/30/2024 Assessment & Plan (06/04/2024 1:54 PM EST): Cutting back on smoking and continue nicotine replacement. Assessment & Plan (01/23/2024 11:11 AM EDT): Start nicotine replacement. Ravsvlyoawssdio57/30/2024 Assessment & Plan (01/23/2024 11:11 AM EDT): GI symptoms after drinking contaminated water and start cipro. Gastroesophageal reflux disease without bqxbgcroxqz68/25/2024 Assessment & Plan (06/04/2024 1:54 PM EST): Symptoms controlled with protonix and continue. Assessment & Plan (01/23/2024 11:11 AM EDT): Symptoms controlled with protonix and continue. Assessment & Plan (12/18/2023 12:26 PM EDT): Developed reflux and start protonix. Chronic right-sided low back pain with right-sided myvnhdrt30/12/2024 Assessment & Plan (09/12/2023 10:38 AM EDT): Continued pain and use medication PRN. Try chiropractor. Use heat and massage PRN. Generalized anxiety xnouyvxf89/12/2024 Assessment & Plan (06/04/2024 1:54 PM EST): Doing well without medication and monitor. Continue counseling. Assessment & Plan (01/23/2024 11:11 AM EDT): Doing well without medication and monitor. Continue counseling. Assessment & Plan (12/18/2023 12:26 PM EDT): Symptoms slightly better but still present and increase lexapro. Warned will take 2-3 weeks to notice improvement in mood. Return to work without restrictions. Assessment & Plan (11/18/2023 11:01 AM EDT): Symptoms slightly better but still severe. Continue lexapro and warned will take time to notice improvement. Work is major stressor and will place off work until after next visit, 11/11-12/28. Assessment & Plan (09/12/2023 10:39 AM EDT): Symptoms tolerable with medication and continue. Assessment & Plan (06/06/2023 9:39 AM EST): Symptoms tolerable with medication and continue. Genital herpes in men06/06/2023OSA (obstructive sleep apnea)06/06/2023 Assessment & Plan (09/12/2023 10:39 AM EDT): Sleeping well with CPAP and continue. Patient is benefiting from PAP therapy. Assessment & Plan (06/06/2023 9:39 AM EST): Diagnosed with BERTRAND and will start CPAP. Irritable bowel syndrome with pwpnupmd84/12/2024 Assessment & Plan (06/06/2023 9:39 AM EST): Occasional symptoms but mild and use levsin PRN. Vitamin D zpisemmlgw66/12/2024Major depressive disorder, recurrent, moderate 06/06/2023 Assessment & Plan (06/04/2024 1:54 PM EST): Doing well without medication and monitor. Continue counseling. Assessment & Plan (01/23/2024 11:11 AM EDT): Doing well without medication and monitor. Continue counseling. Assessment & Plan (12/18/2023 12:26 PM EDT): Symptoms slightly better but still present and increase lexapro. Warned will take 2-3 weeks to notice improvement in mood. Return to work without restrictions. Assessment & Plan (11/18/2023 11:01 AM EDT): Symptoms slightly better but still severe. Continue lexapro and warned will take time to notice improvement. Work is major stressor and will place off work until after next visit, 11/11-12/28. Assessment & Plan (09/12/2023 10:39 AM EDT): Symptoms tolerable with medication and continue. Assessment & Plan (06/06/2023 9:39 AM EST): Symptoms tolerable with medication and continue. COPD, colqxovs39/19/2023 Assessment & Plan (06/04/2024 1:54 PM EST): Symptoms stable and use albuterol PRN. Need to stop smoking. Assessment & Plan (01/23/2024 11:10 AM EDT): Symptoms stable and use albuterol PRN. Need to stop smoking. Assessment & Plan (11/18/2023 11:00 AM EDT): Continued symptoms and start anoro. Use albuterol PRN. Need to stop smoking. Assessment & Plan (09/12/2023 10:39 AM EDT): Breathing stable and follow up with pulmonology. Stressed need to stop smoking. Assessment & Plan (06/06/2023 9:39 AM EST): Breathing stable and need to quit smoking. Use albuterol PRN. Resolved Problems ProblemNoted DateDiagnosed DateResolved DateShortness of wepzjb8806/06/2023 06/06/2023yriformis syndrome, right/ Assessment & Plan (06/06/2023 9:40 AM EST): Increased pain and use relafen and zanaflex PRN. Do not wear wallet in back pocket. Handout with stretches to patient. Family History Medical HistoryRelationNameCommentsDiabetesMotherHypertensionMotherRelationName StatusCommentsMother Social History Tobacco UseTypesPacks/DayYears UsedDateSmoking Tobacco: Every DayCigarettes Passive Smoke Exposure: CurrentSmokeless Tobacco: NeverAlcohol UseStandard Drinks/WeekCommentsNot Currently0 (1 standard drink = 0.6 oz pure alcohol)B1300 Health LiteracyAnswerDate RecordedHow often do you need to have someone help you when you read instructions, pamphlets, or other written material from your doctor or pharmacy?Never06/03/2024Social Connection and Isolation PanelAnswer Date RecordedIn a typical week, how many times do you talk on the phone with family, friends, or neighbors?More than three times a week06/03/2024How often do you get together with friends or relatives?More than three times a week 06/03/2024How often do you attend denominational or christianity services?Patient declined 06/03/2024Do you belong to any clubs or organizations such as denominational groups, unions, fraternal or athletic groups, or school groups?Patient declined 06/03/2024How often do you attend meetings of the clubs or organizations you belong to?Patient agxoifuc96/09/2025re you , , , , never , or living with a partner?Qpamheb2906/03/2024UDIT-C AnswerDate RecordedQ1: How often do you have a drink containing alcohol?Never 06/03/2024Q2: How many drinks containing alcohol do you have on a typical day when you are drinking?Patient does not drink06/03/2024Q3: How often do you have six or more drinks on one occasion?Never06/03/2024Overall Financial Resource Strain (CARDIA)AnswerDate RecordedHow hard is it for you to pay for the very basics like food, housing, medical care, and heating?Patient ixhsqhff00/09/2025 PHQ-2AnswerDate RecordedPatient Health Questionnaire-2 Sffec653[facility] [place] [facility] - Occupational Stress QuestionnaireAnswerDate RecordedDo you feel stress - tense, restless, nervous, or anxious, or unable to sleep at night because yourmind is troubled all the time - these days?Not at all 06/03/2024Exercise Vital SignAnswerDate RecordedOn average, how many days per week do you engage in moderate to strenuous exercise (like a brisk walk)?7 days 06/03/2024On average, how many minutes do you engage in exercise at this level? 150+ min06/03/2024Hunger Vital SignAnswerDate RecordedWithin the past 12 months, you worried that your food would run out before you got the money to buymore. Patient hhmuakxe44/09/2025Within the past 12 months, the food you bought just didn't last and you didn't have money to get more.Patient nkqnuutc12/09/2025 PRAPARE - TransportationAnswerDate RecordedIn the past 12 months, has lack of transportation kept you from medical appointments or from getting medications? Patient mgaekqfk05/09/2025In the past 12 months, has lack of transportation kept you from meetings, work, or from getting things needed for daily living?Patient wmaxwdua12/09/2025Housing Stability Vital SignAnswerDate RecordedIn the last 12 months, was there a time when you were not able to pay the mortgage or rent on time?Patient icfqfwhy99/09/2025Number of Times Moved in the Last YearNot on file 06/03/2024t any time in the past 12 months, were you homeless or living in a half-way (including now)?Patient ouoqqtqo27/09/2025Sex and Gender Information ValueDate RecordedSex Assigned at BirthNot on fileLegal PukKowv3211/15/2022 9:15 AM EDTGender IdentityNot on fileSexual OrientationNot on file Last Filed Vital Signs Vital SignReadingTime TakenCommentsBlood Zvzbauxz739/6403 2:19 PM EDT Xelaa7907 2:19 PM BFKYlqefpqlnfs44.2 ??C (97.1 ??F)08/04/2024 2:19 PM EDTRespiratory Hbzj8086 2:19 PM EDTOxygen Kmhlorrmaw70%08/04/2024 2:19 PM EDTInhaled Oxygen Concentration--Lhxbhx97 kg (150 lb)08/04/2024 2:19 PM EDT Nahdxp870.4 cm (6' 1 )08/04/2024 2:19 PM EDTBody Mass Index19.7908/04/2024 2:19 PM EDT Plan of Treatment Health MaintenanceDue DateLast DoneCommentsCT Rcvgxaujcbzr21/12/1978FIT-DNA 1975FIT1977FOBT1975 1806Ilcfdfexrdswx44/12/1978COVID-19 Vaccine ( season), 05/25/2021, 10/07/2020, Additional history existsInfluenza Vaccine (#1)2Colonoscopy07/09/2034 07/09/2024, 07/09/2024, 08/21/2022, Additional history existsColorectal Cancer Xphhtcmjf01/14/2035Pneumococcal Vaccine: Pediatrics (0 to 5 Years) and At-Risk Patients (6 to 64 Years)Aged OutNo longer eligible based on patient's age to complete this topic Insurance Care Teams Team MemberRelationshipSpecialtyStart DateEnd Date Sarmad Rosenberg MD PCP - GeneralFamily Medicine09/12/23
--- OUTSIDE RECORDS SUMMARY | 2025-04-25 19:22 | XMS_ITS | Clinical Summary ---
Author Organization [id number] [address] 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 Role Phone Sarmad Rosenberg MD Primary Care Provider Allergies Active AllergyReactionsCriticalityNoted FaduYtxizcqhVdzkvctpj12/25/2024 Builds up too much in his system Duloxetine UdcAmozmkjqnSqcikh48/19/7123Rjdwpdfiy76/25/2024 Builds up too much in his system Medications MedicationSigDispense QuantityRefillsLast FilledStart DateEnd DateStatus albuterol (PROVENTIL HFA;VENTOLIN HFA) 90 mcg/actuation inhaler Inhale 2 puffs 4 (four) times a day.Active nicotine polacrilex (NICORETTE) 2 mg gum Chew 1 each (2 mg total) as directed as needed for smoking cessation.Active valACYclovir (VALTREX) 1000 mg tablet Take 1 tablet (1,000 mg total) by mouth in the morning.Active beta-carotene,A,-vits C,E/mins (OCUVITE ORAL) Take 1 tablet by mouth in the morning.Active MAGNESIUM ORAL Take 1 tablet by mouth in the morning.Active acetaminophen (TYLENOL EXTRA STRENGTH) 500 mg tablet Take 2 tablets (1,000 mg total) by mouth every 6 (six) hours. 30 tablet 5Active ibuprofen (MOTRIN) 600 mg tablet Take 1 tablet (600 mg total) by mouth every 6 (six) hours. 30 tablet 5Active Active Problems No known active problems Immunizations ImmunizationAdministration DatesNext DueCOVID-19, mRNA, LNP-S, PF, 100mcg/0.5mL Dose10/07/2020,09/09/2020 Family History Medical HistoryRelationNameCommentsDiabetesFatherCliffordHeart attackFather CliffordHeart diseaseFatherCliffordQuadruple bypassHypertensionFatherClifford Vision lossFatherCliffordDiabetesMotherSueHyperlipidemiaMotherSueHypertension MotherSueMacular degenerationMotherSueMental illnessMotherSueMiscarriages / StillbirthsMotherSueVision lossMotherSueRelationNameStatusCommentsFatherClifford DeceasedMotherSueAlive Social History Tobacco UseTypesPacks/DayYears UsedDateSmoking Tobacco: Every DayCigarettes0.5 20.8Started: 07/09/2004Smokeless Tobacco: Never Tobacco Cessation:Ready to Q uit: Not Asked; Counseling Given: Not Answered Comments:Trying to quit Alcohol UseStandard Drinks/WeekCommentsNot Currently0 (1 standard drink = 0.6 oz pure alcohol)ChildcareAnswerDate OufgxndsBdfbfoiaaVruqkub85/30/2020Employment AnswerDate AenkcotqJoaukioqvaJzigzyp91/30/2020Hunger ScreeningAnswerDate RecordedWithin the past 12 months we worried whether our food would run out before we got money to buy more.Never True08/23/2024Within the past 12 months the food we bought just didn't last and we didn't have money to get more.Never True08/23/2024Purpose - LifeAnswerDate RecordedPurpose and direction in life Lupnxpr8507/06/2020ex and Gender InformationValueDate RecordedSex Assigned at AmbwrTjrh99/03/2025 10:10 AM ESTLegal HanTpdf3312/29/2014 11:31 AM EDTGender EzbnscecKycj03/03/2025 10:10 AM ESTSexual YiunefuokciJycuwfml61/03/2025 10:10 AM EST Last Filed Vital Signs Vital SignReadingTime TakenCommentsBlood Henlmnob773/5503 10:24 AM EDT Ukupl433908/23/2024 10:24 AM MLGGktpmylyddt78.2 ??C (97.1 ??F)08/09/2024 8:47 AM EDTRespiratory Rfdv420708/09/2024 11:30 AM EDTOxygen Poxgsfakqw58%08/09/2024 11:30 AM EDTInhaled Oxygen Concentration--Jtjclg35 kg (150 lb)08/23/2024 10:24 AM EDT Ffnyqy200.4 cm (6' 1 )08/23/2024 10:24 AM EDTBody Mass Index19.7908/23/2024 10:24 AM EDT Plan of Treatment Health MaintenanceDue DateLast DoneCommentsTobacco Xcqllohrqf63/12/1978 Depression Guldqbcya60/12/1990DTaP,Tdap and Td Vaccines (1 - Tdap)1996 COVID-19 Vaccine ( season)/04/2022, 05/25/2021, 10/07/2020, Additional history existsInfluenza Dxghpfl93/dult BMI Pvlkowldo38/Tobacco Gugkaqedk53 Vbjgarxecay91, 07/09/2024 Medical Devices Not on file Procedures Procedure NamePriorityDate/TimeAssociated DiagnosisCommentsPROVATION COLONOSCOPY Sitcwtm2207/09/2024 8:12 AM EST from Last 3 Months or Most Recently Relevant to Health Maintenance Results * Colonoscopy Report (07/09/2024 8:12 AM EST)Specimen (Source)Anatomical Location / LateralityCollection Method / VolumeCollection TimeReceived Time Narrative SYSTEMGENERATED, DOCUMENTATION - 07/09/2024 8:12 AM EST This order has been auto-finalized for image and report archival in PACs. *For full report details, please reach out to your physician. ??This image is visible to you in MyChart.* Authorizing ProviderResult TypeResult StatusMennatjudi Mei MDIMG OR IMG ORDERABLESFinal Result from Last 3 Months or Most Recently Relevant to Health Maintenance Insurance Care Teams Team MemberRelationshipSpecialtyStart DateEnd Date Sarmad Rosenberg MD PCP - GeneralFamily Dfwwagme78/30/20
--- OUTSIDE RECORDS SUMMARY | 2025-04-25 19:23 | XMS_ITS | CCD ---
Author Organization [facility] CliniSynj Care Team Providers Care Ethnographer Name Role Phone SARMAD JEFFERSON Primary Care Physician NILL ., DR RHODES Admitting Unavailable NILL ., DR RHODES Attending Unavailable NILL ., DR RHODES Consulting Unavailable NADERER, DR SARMAD Mora Primary Care Unavailable AMBAR MCMAHON Consulting Unavailable EDHANMELISA KNIGHT Consulting Unavailable NILL ., DR RHODES Attending Unavailable NILL ., DR RHODES Admitting Unavailable NILL ., DR RHODES Attending Unavailable NILL ., DR RHODES Admitting Unavailable NILL, Meagan Scales Attending Unavailable NILL, Meagan Scales Attending Unavailable NILL, Meagan Scales Attending Unavailable MD Sarmad Jefferson Primary Care Provider DO Sudhakar Rizo Emergency Provider [phone] MD Terrance Hartley Admit Provider MD Terrance Hartley Attending Provider [phone] Terrance Hartley Admitting Unavailab Sarmad Rudd Primary Care Unavailable Gerson Sainz Attending Unavailable Terrance Hartley Attending Unavailab Sarmad Rudd Primary Care Unavailable Terrance Hartley Admitting Unavailab Sarmad Rudd MD Primary Care Provider Sarmad Jefferson MD Unavailable Sarmad Jefferson MD Primary Care Provider [phone] SARMAD JEFFERSON Consulting Unavailable SARMAD JEFFERSON Primary Care Unavailable SARMAD JEFFERSON Admitting Unavailable SARMAD JEFFERSON Attending Unavailable SARMAD JEFFERSON Primary Care Unavailable SARMAD JEFFERSON Admitting Unavailable SARMAD JEFFERSON Attending Unavailable NADERER, SARMAD A Primary Care Unavailable NADERER, SARMAD Attending Unavailable NADERER, SARMAD Attending Unavailable NADERER, SARMAD Attending Unavailable NADERER, SARMAD Attending Unavailable NADERER, SARMAD Attending Unavailable NADERER, SARMAD Attending Unavailable NADERER, SARMAD Referring Unavailable NADERER, SARMAD Primary Care Unavailable BULMARO, MENNATALLAH M Admitting Unavailable BULMARO, MENNATALLAH M Attending Unavailable NADERER, SARMAD Primary Care Unavailable BULMARO, MENNATALLAH M Referring Unavailable NADERER, SARMAD Primary Care Unavailable BULMARO, MENNATALLAH M Attending Unavailable BULMARO, MENNATALLAH M Referring Unavailable NADERER, SARMAD Primary Care Unavailable BULMARO, MENNATALLAH M Referring Unavailable NADERER, SARMAD Primary Care Unavailable BULMARO, MENNATALLAH M Attending Unavailable BULMARO, MENNATALLAH M Referring Unavailable NADERER, SARMAD Primary Care Unavailable BULMARO, MENNATALLAH M Admitting Unavailable BULMARO, MENNATALLAH M Attending Unavailable BULMARO, MENNATALLAH M Referring Unavailable NADERER, SARMAD Primary Care Unavailable PATRICIA PEGUERO Attending Unavailable NADERER, SARMAD Primary Care Unavailable Nadsabinar Sarmad GOLDSTEIN Primary Care Provider [phone] CECILY LAROSE Attending Unavailable NADERER, SARMAD Referring Unavailable NADERER, SARMAD Primary Care Unavailable NADERER, SARMAD Referring Unavailable NADERER, SARMAD Primary Care Unavailable BULMARO, MENNATALLAH M Attending Unavailable NADERER, SARMAD Referring Unavailable NADERER, SARMAD Primary Care Unavailable CECILY LAROSE Attending Unavailable NADERER, SARMAD Referring Unavailable NADERER, SARMAD Primary Care Unavailable Sarmad Jefferson MD Primary Care Provider Sarmad Jefferson MD Primary Care Provider Sarmad Jefferson MD Unavailable Gael BATISTA, Crystal Unavailable Sarmad Jefferson MD Unavailable Allergies Allergy ClassificationReported Allergen(s)Allergy TypeDate of OnsetReaction(s) Facility (1 source)No Known Medication Allergies; Translations: [No Known Medication Allergies]Propensity to adverse reactions (disorder)[facility] (19 sources)cloNIDine; Translations: [CLONIDINE]Drug Xcotqxn86-82-3682Y[facility] (19 sources)DULoxetine; Translations: [DULOXETINE HCL]Drug Egaljcr71-94-5184 [facility] (19 sources)traZODone; Translations: [TRAZODONE]Drug Widfyom69-42-0244RCTI [facility] Medications Current Medications MedicationDrug Class(es)DatesSig (Normalized)Sig (Original)acetaminophen 500 mg oral tablet (2 sources)Start: 92-23-1489ymyz 2 tablets by mouth every six hoursacetaminophen (TYLENOL EXTRA STRENGTH) 500 mg tablet Take 2 tablets (1,000 mg total) by mouth every6 (six) hours. 30 tablet 08/09/2024 [id number] 200 actuat albuterol 0.09 mg/actuat metered dose inhaler (16 sources)beta2-Adrenergic AgonistStart: 47-58-0244vsox 2 puff(s) by inhalation every four hours for wheezingalbuterol HFA 90 mcg/act inhaler Indications: COPD, moderate (CMS/HCC) INHALE 2 PUFFS EVERY 4 HOURSIF NEEDED FOR WHEEZING. 6.7 g 5 08/02/2024 ActiveStart: 11-18-2023 End: 35-57-4555vqar 2 puff(s) by inhalation every four hours for wheezing albuterol HFA 90 mcg/act inhaler Indications: COPD, moderate (CMS/HCC) Inhale 2 puffs every 4 (four) hours if needed for wheezing 18 g 5 11/18/2023 11/17/2024 Activetake 2 puff(s) by inhalation four times dailyalbuterol (PROVENTIL HFA;VENTOLIN HFA) 90 mcg/actuation inhaler Inhale 2 puffs 4 (four) times a day. Activebeta-carotene,A,-vits C,E/mins (OCUVITE ORAL) (7 sources)take 1 tablet by mouth once in the morningbeta-carotene,A,-vits C,E/mins (OCUVITE ORAL) Take 1 tablet by mouth in the morning. Active ciprofloxacin 500 mg oral tablet (2 sources)Quinolone AntimicrobialStart: 01-23-2024 End: 83-65-4601vrbh 1 tablet by mouth in the morningciprofloxacin (Cipro) 500 MG tablet Indications: Gastroenteritis Take 1 tablet (500 mg) by mouth inthe morning and 1 tablet (500 mg) before bedtime. Do all this for 10 days. 20 tablet 01/23/2024 02/02/2024 Activecitalopram 40 mg oral tablet (2 sources)Serotonin Reuptake InhibitorStart: 20-19-6041YdfePY 40 mg Tab 20 mg = 0.5 tab(s), Oral, Daily, Refills(s) 0 Start Date: 03/15/22 Status: Ordered docusate sodium 100 mg oral capsule (2 sources)Start: 08-09-2024 End: 37-39-6091ruye 1 capsule by mouth in the morning, then take 1 capsule by mouth at bedtimedocusate sodium (COLACE) 100 mg capsule Take 1 capsule (100 mg total) by mouth in the morning and 1capsule (100 mg total) before bedtime. 10 capsule 08/09/2024 08/23/2024 Discontinued (Patient Stopped On Own)escitalopram 20 mg oral tablet (4 sources)Serotonin Reuptake InhibitorStart: 12-18-2023 End: 33-59-2302dzgf 1 tablet by mouth once dailyescitalopram (Lexapro) 20 MG tablet Indications: Major depressive disorder, recurrent, moderate (HCC) (CMS/HCC) Take 1 tablet (20 mg) by mouth Daily 30 tablet 5 12/18/2023 01/23/2024 DiscontinuedStart: 94-84-2495qqfr 10 mg by mouth once daily in the morning Escitalopram Oxalate Active 10 MG PO Every morning November 17, 2023 12:00am hyoscyamine sulfate 0.125 mg sublingual tablet (9 sources)Start: 02-23-2024 End: 93-39-4469bwuvxmzzsfh (Levsin) 0.125 MG SL tablet Indications: Irritable bowel syndrome with diarrhea DISSOLVE 1 TABLET UNDER THE TONGUE 4 TIMES A DAY NEEDED 360 tablet 2 02/23/2024 06/04/2024 DiscontinuedStart: 44-54-7434avcc 0.125 mg under the tongue four times dailyHyoscyamine Sulfate Active 0.125 MG SUBLINGUAL Four times daily November 12, 2023 12:00amStart: 40-14-0811fnadlxtjucr (Levsin) 0.125 MG SL tablet Indications: Irritable bowel syndrome with diarrhea DISSOLVE 1 TABLET UNDER THE TONGUE 4 TIMES A DAY NEEDED 360 tablet 2 07/21/2023 ActiveStart: 69-79-6461tjro 1 tablet by mouth four times dailyLevsin 0.125 mg SL Tab 0.125 mg = 1 tab(s), Oral, QID, Refills(s) 0 Start Date: 03/15/22 Status: Orderedibuprofen 600 mg oral tablet (2 sources)Nonsteroidal Anti-inflammatory DrugStart: 36-64-5742omre 1 tablet by mouth every six hoursibuprofen (MOTRIN) 600 mg tablet Take 1 tablet (600 mg total) by mouth every 6 (six) hours. 30 tablet 08/09/2024 ActiveMagnesium (7 sources)take 1 tablet by mouth in the morningMAGNESIUM ORAL Take 1 tablet by mouth in the morning. Activemeloxicam 15 mg oral tablet (2 sources)Nonsteroidal Anti-inflammatory DrugStart: 70-74-2560pkgp 1 tablet by mouth once dailymeloxicam 15 mg oral tablet 15 mg = 1 tab(s), Oral, Daily, Refills(s) 0 Start Date: 03/15/22 Status: Orderedmethocarbamol 750 mg oral tablet (7 sources)Muscle RelaxantStart: 88-53-1699ymnp 750 mg by mouth four times daily Methocarbamol Active 750 MG PO Four times daily November 12, 2023 12:00am End: 15-98-7713moigzkcsxbgpb (Robaxin) 500 MG tablet Take 500 mg by mouth 06/04/2024 Discontinuednabumetone 500 mg oral tablet (6 sources)Nonsteroidal Anti-inflammatory DrugStart: 11-18-2023 End: 79-54-0104lthc 1 tablet by mouth in the morningnabumetone (Relafen) 500 MG tablet Indications: Pyriformis syndrome, right Take 1 tablet (500 mg) by mouth in the morning and 1 tablet (500 mg) before bedtime. 180 tablet 3 11/18/2023 06/04/2024 Discontinuednicotine 2 mg chewing gum (16 sources)Cholinergic Nicotinic AgonistStart: 60-08-2993obeqxtry polacrilex (Nicorette) 2 MG gum Indications: Tobacco use disorder, continuous Chew 1 each ( 2 mg) if needed for smoking cessation 100 each 2 06/17/2024 ActiveStart: 01-23-2024 End: 60-76-2419dnmeanqk polacrilex (Nicotine Mini) 4 MG lozenge Indications: Tobacco use disorder, continuous Dissolve 1 lozenge (4 mg) in the mouth every 2 (two) hours if needed for smoking cessation 100 lozenge 06/04/2024 DiscontinuedStart: 97-48-6744Quibcith Active 21 MG TRANSDERML Daily November 17, 2023 12:00amomeprazole 40 mg delayed release oral capsule (8 sources)Proton Pump InhibitorStart: 07-09-2024 End: 04-76-4499hffb 1 capsule by mouth in the morning, then take 1 capsule by mouth at bedtimeomeprazole (PriLOSEC) 40 mg capsule Take 1 capsule (40 mg total) by mouth in the morning and 1 capsule (40 mg total) before bedtime. Do all this for 60 days. 120 capsule 07/09/2024 09/07/2024 ActiveoxyCODONE hydrochloride 5 mg oral tablet (1 source)Opioid AgonistStart: 08-09-2024 End: 90-76-0567oxdi 1 tablet by mouth every six hours as needed for pain oxyCODONE (ROXICODONE) 5 mg immediate release tablet Indications: Biliary colic Take 1 tablet (5 mgtotal) by mouth every 6 (six) hours as needed for pain for up to 3 days. Max Daily Amount: 20 mg 10tablet 08/09/2024 08/12/2024 Active pantoprazole 40 mg delayed release oral tablet (11 sources)Proton Pump InhibitorStart: 01-19-2024 End: 76-23-4420tvkk 1 tablet by mouth before mealtimepantoprazole (ProtoNix) 40 MG EC tablet Indications: Gastroesophageal reflux disease without esophagitis Take 1 tablet (40 mg) by mouth in the morning. Take before meals. Do not crush, chew, or split.. 90 tablet 3 01/23/2024 Activepolyethylene glycol 3350 905919 mg / potassium chloride 1480 mg / sodium bicarbonate 5720 mg / sodium chloride 70308 mg powder for oral solution (1 source)Osmotic LaxativeStart: 85-60-5129ZlMYSZZM Avila oral powder for reconstitution 240 mL, Oral, Daily, 480 mL, Refill(s) 0, as directed, [id number], 187.9, cm, 06/21/22 13:47:00 EST, Height/Length Dosing, 76.8, kg, 06/21/22 13:47:00 EST, Weight Dosing Start Date: 06/21/22 Status: Orderedsod sulf-pot chloride-mag sulf 1.479-0.188- 0.225 gram tablet (1 source)Start: 72-66-3365owa sulf-pot chloride-mag sulf 1.479-0.188- 0.225 gram tablet Indications: Unintentional weight loss , Lower abdominal pain Please see instructional sheet given by physicians office. 24 tablet 06/24/2024 Active sucralfate 1000 mg oral tablet (3 sources)Aluminum ComplexStart: 07-09-2024 End: 58-47-5434xtayyaqugv (Carafate) 1 g tablet Take 1 g by mouth 07/09/2024 ActivetiZANidine 4 mg oral tablet (2 sources)Central alpha-2 Adrenergic AgonistStart: 08-42-5172qakk 1 tablet by mouth three times dailytiZANidine 4 mg Tab 4 mg = 1 tab(s), Oral, TID, Refills(s) 0 Start Date: 03/15/22 Status: Lwojozz07 actuat umeclidinium 0.0625 mg/actuat / vilanterol 0.025 mg/actuat dry powder inhaler (3 sources)Anticholinergic, beta2-Adrenergic AgonistStart: 11-18-2023 End: 08-21-0135aqti 1 puff(s) by inhalation once dailyUmeclidinium-Vilanterol (Anoro Ellipta) 62.5-25 MCG/ACT aerosol powder Indications: COPD, moderate ( CMS/HCC) Inhale 1 puff Daily 1 each 3 11/18/2023 01/23/2024 Discontinued valACYclovir 1000 mg oral tablet (20 sources)Herpesvirus Nucleoside Analog DNA Polymerase Inhibitor, Herpes Simplex Virus Nucleoside Analog DNA Polymerase Inhibitor, Herpes Zoster Virus Nucleoside Analog DNA Polymerase InhibitorStart: 25-50-9590rfyq 1 tablet by mouth once dailyvalACYclovir (Valtrex) 1 g tablet Indications: Genital herpes in men Take 1 tablet (1,000 mg) by mouth Daily 90 tablet 3 05/31/2024 ActiveStart: 20-02-5483fydn 1 tablet by mouth once dailyvalACYclovir (Valtrex) 1 g tablet Indications: Genital herpes in men TAKE 1 TABLET BY MOUTH EVERY DAY 90 tablet 3 11/18/2023 ActiveStart: 92-20-5374qxnd 1000 mg by mouth once dailyValacyclovir Active 1000 MG PO Daily March 07, 2017 12:00amVitamin D3 2000 intl units (2 sources)Start: 76-02-5169iors 1 tablet by mouth once dailyVitamin D3 2000 intl units = 1 tab(s), Oral, Daily, Refills(s) 0 Start Date: 03/15/22 Status: Ordered Completed/Discontinued Medications MedicationDrug Class(es)DatesSig (Normalized)Sig (Original)ARIPiprazole 5 mg oral tablet (3 sources)Atypical AntipsychoticStart: 11-12-2023 End: 32-85-7040drmi 5 mg by mouth once dailyAripiprazole Discontinued 5 MG PO Daily November 12, 2023 12:00am November 17, 2023 12:16pmStart: 99-54-9212rkvu 1 tablet by mouth once dailyaripiprazole 5 mg Tab 5 mg = 1 tab(s), Oral, Daily, Refills(s) 0 Start Date: 03/15/22 Status: Ordered Problems Active Problems Problem ClassificationProblemDateDocumented DateEpisodic/ChronicAbdominal pain (8 sources)Right lower quadrant pain; Translations: [Right lower quadrant pain] Onset: 99-01-4074FmzpxcdfBbqqwuo disorders (16 sources)Generalized anxiety disorder; Translations: [Generalized anxiety disorder]Onset: 104403-06-5286GjuppwiYtttmmg obstructive pulmonary disease and bronchiectasis (20 sources)Moderate chronic obstructive pulmonary disease; Translations: [Chronic obstructive pulmonary disease, unspecified]Onset: ChronicEsophageal disorders (14 sources)Gastroesophageal reflux disease without esophagitis; Translations: [Gastro-esophageal reflux disease without esophagitis]Onset: 12-18-2023 40-19-7367RnbwtkzLvez disorders (20 sources)Major depressive disorder; Translations: [Major depressive disorder, single episode, unspecified]Onset: 698754-82-4499PfdqvubOsdfcnwczzh deficiencies (12 sources)Vitamin D deficiency; Translations: [Vitamin D deficiency, unspecified]Onset: 877404-26-5324SziexcqEknnc gastrointestinal disorders (12 sources)Irritable bowel syndrome with diarrhea; Translations: [Irritable bowel syndrome with diarrhea]Onset: 274900-91-4878EmcbcvxGlomc gastrointestinal disorders (3 sources)Diarrhea; Translations: [Diarrhea, unspecified]Onset: 03-29-2022 EpisodicOther gastrointestinal disorders (1 source)HeartburnOnset: 08-78-0019LuqmchhqTkndn nutritional; endocrine; and metabolic disorders (2 sources)Unintentional weight loss; Translations: [Abnormal weight loss] 42-37-0849LyfioowiYivqx nutritional; endocrine; and metabolic disorders (1 source)Abnormal weight loss; Translations: [Abnormal weight loss]Onset: 30-09-8969QsdpkpkpTmpon screening for suspected conditions (not mental disorders or infectious disease) (5 sources)Screening for malignant neoplasm of colon done; Translations: [Encounter for screening for malignant neoplasm of colon]Onset: 06-21-2022 EpisodicResidual codes; unclassified (10 sources)Obstructive sleep apnea syndrome; Translations: [Obstructive sleep apnea (adult) (pediatric)]Onset: 482244-20-1385LsiyenfIekazusa codes; unclassified (3 sources)Tobacco user; Translations: [Tobacco use]Onset: EpisodicResidual codes; unclassified (1 source)Tobacco use; Translations: [TOBACCO USE]Onset: 76-97-1041Nbpbgohb Residual codes; unclassified (1 source)Acquired absence of other specified parts of digestive tract; Translations: [Acquired absence of other specified parts of digestive tract] Onset: 37-49-2359DoglfcgcVbaylmex codes; unclassified (1 source)Pain, unspecified; Translations: [Pain, unspecified]Onset: 07-27-2024 EpisodicScreening and history of mental health and substance abuse codes (1 source)Tobacco use and exposure - iujfqip69-54-5939BkfpxxjDzhelovzj-quychth disorders (14 sources)Tobacco dependence, continuous; Translations: [Nicotine dependence, unspecified, with unspecified nicotine-induced disorders]Onset: 01-23-2024 88-53-0094UyhbuuaJewuzqhcxqjj (2 sources)Body mass index 20-24 - uhoaoj55-35-0034Wwagzwbcqjcc (1 source)Patient encounter qqciqx02-26-2627Dlvhtzvoqovx (1 source)unintentional weight lossOnset: 34-97-7151Wuterpcoeidc (1 source)Post-opOnset: 27-23-3778Pesdicsngekz (1 source)CholelithiasisOnset: 83-76-8026Xulrf infection (12 sources)Genital herpes simplex; Translations: [Herpesviral infection of other male genital organs]Onset: hronic Past or Other Problems Problem ClassificationProblemDateDocumented DateEpisodic/ChronicBiliary tract disease (11 sources)Biliary colic; Translations: [Calculus of bile duct without cholangitis or cholecystitis without obstruction]Onset: EpisodicMalaise and fatigue (8 sources)Fatigue; Translations: [Other fatigue]Onset: EpisodicNoninfectious gastroenteritis (11 sources)Gastroenteritis; Translations: [Noninfective gastroenteritis and colitis, unspecified]Onset: 102753-08-5035GgvbonhlChiow lower respiratory disease (10 sources)Dyspnea; Translations: [Shortness of breath]Onset: 06-06-2023 Resolved: 836534-10-4025LmjuhqayIardy nervous system disorders (10 sources)Right-sided piriformis syndrome; Translations: [Lesion of sciatic nerve, right lower limb]Onset: 06-06-2023 Resolved: 167667-79-2561RdnkmfxEkxempikvfg; intervertebral disc disorders; other back problems (12 sources)Chronic low back pain; Translations: [Lumbago with sciatica, right side]Onset: 401750-31-4539Kjtutcwk Results Test NameValueInterpretationReference RangeFacilitySurgical Pathologyon 73-32-5796Qsmnfszh PathologyNormalProMedica St. Rose HospitalComment on above: Result Comment: [facility] [address] [place] [address] Surgical Pathology Consultation Patient Name:DEXTER SUMMERS:1975 (Age: 49)Gender:MTaken:08/09/2024Reported:08/16/2024Physician(s):Jerry Mei MD ([phone])Copy To: Rec. #:[id number]: #[id number] Final Pathologic Diagnosis Gallbladder, cholecystectomy: Chronic cholecystitis with cholelithiasis. Benign cystic duct lymph nodes. Report Electronically Signed Out ssi/08/16/2024Sunikky Monaco M.D. Interpretation performed at [place] [address], License number: [id number]. Clinical History Biliary colic. Gross Description Received in formalin labeled ILENE, gallbladder is an intact gallbladder, 10.7 x 2.4 x 2 cm. The cystic duct is marked with a clamp, which is removed and the resection margin is shaved. Adjacent tothe cystic duct are 2 intact lymph nodes 0.2 and 1 cm in greatest dimension, with the smaller 1 inked black. The serosa is green-brown smooth and glistening and the opposing hepatic bed is meadows-brown roughened and cauterized. The gallbladder is opened to reveal abundant viscous green bile and a granulated solid brown gallstone, 2.6 cm in greatest dimension. The gallbladder mucosa is green and velvety. Aluminum Molder sections are submitted in cassettes A-B, to include the shaved cystic duct, a customer success representative section of the gallbladder neck body and fundus in cassette A, and the larger lymph node trisected, and the smaller bisected in cassette B. (2,ss,S25-[x]) TB tgb/08/10/2024GR Specimen(s) Received Gallbladder Fee Codes(s): 1; 89129JS ABDOMEN AND PELVIS W CONTon 49-19-4475LC ABDOMEN AND PELVIS W CONTCT ABDOMEN AND PELVIS W CONT CLINICAL INFORMATION: Biliary colic TECHNIQUE: CT ABDOMEN AND PELVIS W CONT CT images of the abdomen and pelvis are obtained post intravenous administration of contrast. Thereare no prior exams available for comparison. Gallstones noted. No obvious pericholecystic fluid. There is no CT evidence of biliary dilatation. Pancreas grossly unremarkable without peripancreatic infiltrate stranding. Kidneys enhance homogeneously. No free intraperitoneal fluid or evidence of pneumoperitoneum. Prostatic calcifications appreciated. No obvious colonic wall thickening. Portal and mesenteric vessels enhance normally. Patient status post remote appendectomy. Osseous structures appear intact. No gastric distention or obvious wall thickening. IMPRESSION: Cholelithiasis. All CT scans at this facility use dose modulation, iterative reconstruction, and/or weight based dosing when appropriate to reduce radiation dose to as low as reasonably achievable. Finalized by Terrence Carlson MD on 08/05/2024 1:57 [facility]opedic CenterCoding Summaryon 43-70-6090Bznhcm SummaryHTMLBase 64 GrccunbyFOc9tKd+PGhlYWQ+PW5WADNyH34sgPNqhT1fN1GAFQoWXfdxQIJFUSdNTuDeygFeDZ7jyQZb ZXJu [file] bGx (more content not included)...[facility] AND AUTO DIFFon 34-08-4518KQFVXETW BASOPHIL0.1 X10E9/LNormal0.0-0.2PMetroHealth Main Campus Medical Center Comment on above:Performed By: #### CBCA, CMP #### [facility] ([id number]) [address], [address] [place], [place] [address]TTGCAOUT NEUTROPHIL4.4 X10E9/LNormal1.5-6.6Glenbeigh HospitalComment on above:Performed By: #### CBCA, CMP #### [facility] ([id number]) [address] [place], [place] [address]Pnrazkfzm/100 WBC (Bld)0.7 %[facility] Comment on above:Performed By: #### CBCA, CMP #### [facility] ([id number]) [address] [place], [place] [address]Ejtnywikdvk (Bld) [#/Vol]0.1 10*3/uLNormal0.0-0.4Glenbeigh HospitalComment on above:Performed By: #### CBCA, CMP #### [facility] ([id number]) [address], [address] [place], [place] [address]Ruiwesyaymg/100 WBC (Bld)1.7 %NormalGlenbeigh Hospital Comment on above:Performed By: #### CBCA, CMP #### [facility] ([id number]) [address], [facility] [address] [place], [place] [address]Vzopttcjclz distribution width (RBC) [Ratio]13.8 %Normal 11.5-15.0Glenbeigh HospitalComment on above:Performed By: #### CBCA, CMP #### [facility] ([id number]) [address], [facility] [address] [place], [place] [address]Crqabkxxmx (Bld) [Volume fraction]46.3 %Hcbusr75-28ZmoIzugoiSt. David'S Georgetown HospitalComment on above:Performed By: #### CBCA, CMP #### [facility] ([id number]) [address], [address] [place], [place] [address]Ozgcvpciab (Bld) [Mass/Vol]15.5 g/qJFvufrd85.0-17.0Glenbeigh HospitalComment on above:Performed By: #### CBCA, CMP #### [facility] ([id number]) [address], [address] [place], [place] [address]Cxvtyrnutiq (Bld) [#/Vol]3.1 10*3/uLNormal1.0-3.5PMetroHealth Main Campus Medical CenterComment on above:Performed By: #### CBCA, CMP #### [facility] ([id number]) [address], [address] [place], [place] [address]Gxvjiqysjvt/100 WBC (Bld)37.2 %NormalProKettering Health – [facility] Comment on above:Performed By: #### CBCA, CMP #### [facility] ([id number]) [address], [address] [place], [place] [address]AMS (RBC) [Entitic mass]32.1 crXquiyc74-52TutBqbjhjSt. David'S Georgetown HospitalComment on above:Performed By: #### CBCA, CMP #### [facility] ([id number]) [address], [address] [place], [place] [address]FFCD (RBC) [Mass/Vol]33.6 g/uTUhzsiu93-01KgnPmfgmxSt. David'S Georgetown HospitalComment on above:Performed By: #### CBCA, CMP #### [facility] ([id number]) [address], [address] [place], [place] [address]BNQ (RBC) [Entitic vol]96 sKYqgbzy08-922OutJfntdj [facility]remont HospitalComment on above:Performed By: #### CBCA, CMP #### [facility] ([id number]) [address], [address] [place], [place] [address]Qhcndsivc (Bld) [#/Vol]0.7 10*3/uLNormal0-0.9Glenbeigh HospitalComment on above:Performed By: #### CBCA, CMP #### [facility] ([id number]) [address], [address] [place], [place] [address]Twfbbsvly/100 WBC (Bld)8.6 %[facility] Comment on above:Performed By: #### CBCA, CMP #### [facility] ([id number]) [address], [address] [place], [place] [address]Wmxxzizrngh/100 WBC (Bld)51.8 %[facility] Comment on above:Performed By: #### CBCA, CMP #### [facility] ([id number]) [address], [address] [place] [address]Insqyvqw mean volume (Bld) [Entitic vol]9.6 fLNormal7-12 ProMRancho Springs Medical CenterComment on above:Performed By: #### CBCA, CMP #### [facility] ([id number]) [address], [address] [place] [address]Tlajatiyj (Bld) [#/Vol]244 10*3/uQWdriow434-856YnqBsfoxw [facility]remont HospitalComment on above:Performed By: #### CBCA, CMP #### [facility] ([id number]) [address], [address] [place] [address]KTS COUNT4.84 X10E12/LNormal4.10-5.70[facility] on above:Performed By: #### CBCA, CMP #### [facility] ([id number]) [address], [address] [place], [place] [address]GJG (Bld) [#/Vol]8.4 10*3/uLNormal4.0-11.0Glenbeigh HospitalComment on above:Performed By: #### CBCA, CMP #### [facility] ([id number]) [address], [address] [place] [address]HAVFPFTOUYGDK METABOLIC PANELon 51-73-0144Imziqex [Mass/Vol]4.3 g/dLNormal3.2-5.3PMetroHealth Main Campus Medical CenterComment on above:Performed By: #### CBCA, CMP #### [facility] ([id number]) [address], [address] [place], [place] [address]YKH [Catalytic activity/Vol]50 U/ZWjznws72-301ThkFrhbqlSt. David'S Georgetown HospitalComment on above:Performed By: #### CBCA, CMP #### [facility] ([id number]) [address], [address] [place], [place] [address]XIS [Catalytic activity/Vol]9 U/LNormal0-40Glenbeigh HospitalComment on above:Performed By: #### CBCMorgan, CMP #### [facility] ([id number]) [address], [address] [place], [place] [address]Idawa gap [Moles/Vol]5 mmol/LNormal5-15ProSt. David'S Georgetown HospitalComment on above:Performed By: #### CBCMorgan, CMP #### [facility] ([id number]) [address], [address] [place], [place] [address]UZT [Catalytic activity/Vol]14 U/LNormal0-41ProSt. David'S Georgetown HospitalComment on above:Performed By: #### CBCMorgan, CMP #### [facility] ([id number]) [address], [address] [place], [place] [address]Yhgbbtsez [Mass/Vol]0.5 mg/dLNormal0.3-1.2PMetroHealth Main Campus Medical CenterComment on above:Performed By: #### CBCMorgan, CMP #### [facility] ([id number]) [address], [address] [place], [place] [address]Vxcwiaz [Mass/Vol]9.2 mg/dLNormal8.5-10.5PMetroHealth Main Campus Medical CenterComment on above:Performed By: #### CBCMorgan, CMP #### [facility] ([id number]) [address], [address] [place], [place] [address]Tmfxzpwj [Moles/Vol]104 mmol/YHavdaw66-577PosErnmknSt. David'S Georgetown HospitalComment on above:Performed By: #### CBCA, CMP #### [facility] ([id number]) [address], [address] [place], [place] [address]PT7 [Moles/Vol]31 mmol/RAzrutg33-62FkpWoygdzMetroHealth Main Campus Medical Center Comment on above:Performed By: #### CBCA, CMP #### [facility] ([id number]) [address] [address] [place], [place] [address]Ljlupxszbl [Mass/Vol]0.86 mg/dLNormal0.60-1.30ProSt. David'S Georgetown HospitalComment on above:Result Comment: METHOD TRACEABLE TO IDMS STANDARD Performed By: #### KAYLEE, CMP #### [facility] ([id number]) [address], [facility] [address] [place], [place] [address]rSYE (CKD-EPI) NON-RACE DEPENDENT>90Normal>59ProSt. David'S Georgetown HospitalComment on above:Result Comment: Reported eGFR is based on the CKD-EPI 2020 equation that does not use a race coefficient.Performed By: #### KAYLEE, CMP #### [facility] ([id number]) [address] [address] [place], [place] [address]Zwfatbr [Mass/Vol]89 mg/nOJvthqi80-12FocEapeieSt. David'S Georgetown Hospital Comment on above:Performed By: #### CBCMorgan, CMP #### [facility] ([id number]) [address] [address] [place], [place] [address]Nxtgwmnyy [Moles/Vol]4.4 mmol/LNormal3.5-5.0ProSt. David'S Georgetown HospitalComment on above:Performed By: #### CBCMorgan, CMP #### [facility] ([id number]) [address] [address] [place], [place] [address]Ktummoa [Mass/Vol]6.9 g/dLNormal6.0-8.0ProSt. David'S Georgetown HospitalComment on above:Performed By: #### CBCA, CMP #### [facility] ([id number]) [address] [address] [place], [place] [address]Fhtyod [Moles/Vol]140 mmol/BLehadz267-291NxtPjcqut [facility]remont HospitalComment on above:Performed By: #### CBCA, CMP #### [facility] ([id number]) [address], [address] [place], [place] [address]Ttbw nitrogen [Mass/Vol]9 mg/dLNormal5-23ProSt. David'S Georgetown HospitalComment on above:Performed By: #### CBCA, CMP #### [facility] ([id number]) [address] [facility] [place], [place] [address]IV Gallbladderon 63-34-9435BP GallbladderEXAM: US Gallbladder HISTORY: Epigastric pain COMPARISON: 08/17/2014 TECHNIQUE: Grayscale and color FINDINGS: The liver is normal in size, contour and echotexture. No focal mass. Hepatopedal flow in the main portal vein. The gallbladder is normal in size. The wall measures up to 3.2 mm, minimally thickened. No pericholecystic fluid. The common bile duct measures 3.5 mm. Echogenic material within the gallbladder lumen, combination of the 2.5 cm gallstone and a small amount of gallbladder sludge. No pericholecystic fluid. Positive sonographic Shafer sign. The visualized pancreas is normal The visualized right kidney is normal No ascites IMPRESSION: Cholelithiasis, gallbladder sludge and borderline thickened gallbladder wall. In light of the patient's epigastric pain, consider mild cholecystitis. Final Dictated by: Patricia Arana MD Dictated DT/TM: 07/23/24 10:24 Signed (Electronic Signature): Patricia Arana MD 07/23/24 10:27 a Technologist: [facility] HospitalProvider Orderson 48-22-8551Cwoisafm [id number]#1.00OTGTIFFCleveland Clinic Mercy Hospital PYLORI SCREENon 07-09-2024H. pylori Org specific cx Ql (Olu fld) NegativeNormalNEGProSt. David'S Georgetown HospitalComment on above:Performed By: #### 58243-1 #### [facility] ([id number]) [address] [facility] [place], [place] [address]Bcobslrl Pathologyon 20-39-4920Acmxugoj PathologyNoTriHealthComment on above:Result Comment: [facility] [address] [place] [address] Surgical Pathology Consultation Patient Name:DEXTER SUMMERS:1975 (Age: 49)Gender:MTaken:07/09/2024Reported:07/15/2024Physician(s):Jerry Mei MD ([phone])Copy To: Rec. #:[id number]: #[id number] Final Pathologic Diagnosis 1. Duodenum biopsy: Duodenal mucosa with no significant histopathologic changes. No active inflammation, celiac disease, parasites, granuloma or atypia. 2. Antrum biopsy: Gastric antral mucosa with changes suggestive of chemical or reactive gastropathy. No intestinal metaplasia or dysplasia. No Helicobacter pylori organisms are seen on routine sections. Report Electronically Signed Out wak/07/15/2024Uri Lewis MD Interpretation performed at [facility], [address] [place] [address], License number: [id number]. Clinical History Unintentional weight loss. Gross Description 1. Received in formalin labeled, ILENE duodenum BX are 2 pale-meadows delicate soft tissue bits, each 0.3 cm in greatest dimension. The specimens are filtered and submitted in single cassette. (1, ns,[id number], m1) TB 2. Received in formalin labeled, ILENE, antrum BX are 2 pale-meadows delicate soft tissue bits, 0.2 and 0.3 cm in greatest dimension. The specimens are filtered and submitted in single cassette. (1, ns, [id number], m1) TB tgb/07/12/2024GR Specimen(s) Received 1: Duodenum biopsy 2: Antrum biopsy Fee Codes(s): 1; 83263 2; 49851JP CHEST W CONTon 13-88-6252XN CHEST W CONTCT CHEST W CONT CT CHEST W CONT HISTORY: Chronic obstructive pulmonary disease, tobacco use, chest pain, shortness of breath COMPARISON: None TECHNIQUE: Multidetector axial CT Chest performed with 100 mL of Omnipaque 300 IV contrast. Sagittal and coronal 2-D reconstructed images were also obtained. Automated exposure control was utilized. All CT scans at this facility use dose modulation, iterative reconstruction, and/or weight based dosing when appropriate to reduce radiation dose to as low as reasonably achievable. FINDINGS: LUNGS/PLEURA: Central airways are patent without filling defect. No pneumothorax or pleural effusion. No focal consolidation. Severe centrilobular emphysematous changes noting a large right apical bulla. Bibasilardependent atelectasis/scarring. No suspicious pulmonary nodules. HEART/VESSELS/MEDIASTINUM: No cardiomegaly. Trace pericardial effusion. Non-aneurysmal thoracic aorta. Pulmonary arteries are mildly prominent.. No pulmonary embolus visualized in large branches. No significant coronary arterycalcifications. No enlarged mediastinal, hilar or axillary lymph nodes. LOWER NECK: The visualized thyroid is unremarkable. UPPER ABDOMEN: No acute abnormality within the visualized upper abdomen. BONES/SOFT TISSUES: No acute osseous abnormality. IMPRESSION: * No acute cardiopulmonary process. * Severe centrilobular emphysematous changes. Approved by Kiko Corbin MD on 06/28/2024 10:14 AM IKai MD have personally reviewed the image(s) and agree with and/or edited the report Finalized by Kai Costa MD on 06/28/2024 12:35 [facility] Coding Summaryon 30-31-3391Ifansh SummaryHTMLBase 64 UbkiizxeVMs3aVu+PGhlYWQ+JB4DAWAdO84coUCojV2vD2LRHTyKUdxiMUPQPEhDFxUmggVvHS6cfKUw ZXJu [file] bGx (more content not included)...[facility] Health CenterTestosterone, Serum LC on 63-94-2159Jtskwlqgduhb, Serum LC580 ng/dLInvalid Interpretation Naco024-434 [facility] Private HospitalComment on above:Result Comment: Adult male reference interval is based on a population of healthy nonobese males (BMI <30) between 19 and 39 years old. flori Gifford.al. JCEM 2017,102;9291-0459. PMID: 44584096. Performed At: [address] [id number] Demian Ocampo PhD Ph:[phone] By: #### [id number] #### [facility]) [address] [place] [address]Ztdvirdy Orderson 77-26-2792Usazsmfx Orders [id number]#1.00[facility] Coding Summaryon 62-98-7710Pogrdn SummaryHTMLBase 64 HivoguzgZVk2dNu+PGhlYWQ+TS5XMTEgS54wxBWikW7cJ7IKUAzCLuzcVAYRZBtTKdGnweMgMR3jgZFf ZXJu [file] bGx (more content not included)...[facility].Auto Diff 1on 46-11-3334Knzi Mayes %8 %Normal1-12[facility] Private HospitalComment on above:Performed By: #### 31379168, 1524098, 8428395822, 2135608, 9019768203, 6730368277, 332933777, 9602435289 #### [facility] (DEFAULT) [address] [place] [address]Mnta Abs#0.1 q86Esrzbr6.0-0.2MProMedica Defiance Regional HospitalComment on above:Performed By: #### 99324485, 8031425, 6323202626, 0299892, 1325362446, 5789381083, 317120563, 0038917071 #### [facility] (DEFAULT) [address] [place] [address]Dssvdmcji/100 WBC (Bld)0.9 %Normal0.2-2.0[facility] Comment on above:Performed By: #### 56690948, 7080702, 1441347012, 4424675, 9763016856, 8414478647, 654474525, 5730417016 #### [facility] (DEFAULT) [address] [place] [address]Vyj Abs#0.1 n88Pgjiox0.0-0.4[facility] HospitalComment on above:Performed By: #### 94307142, 0214917, 9576619914, 3297553, 0537788467, 1668672562, 244533353, 3825623704 #### [facility] (DEFAULT) [address] [place] [address]Rlqvpamszrp/100 WBC (Bld)0.8 %Low0.9-4.0[facility] Comment on above:Performed By: #### 05281998, 3321159, 2541264656, 4586957, 1060763800, 7174817577, 209976450, 8685625292 #### [facility] (DEFAULT) [address] [place] [address]Idtwv Abs#3.3 y28Ztwm2.3-2.9Mac[facility] HospitalComment on above:Performed By: #### 49480711, 2827531, 8599721887, 7427689, 1022711150, 1412517544, 983827638, 4331992569 #### [facility] [address] [place] [address]Axdufkvkynb/100 WBC (Bld)28 %Xnxlui71-04Ggsnmmrh Hospital Comment on above:Performed By: #### 45235592, 5416702, 3276642242, 9678182, 9863301283, 6374588682, 297107142, 3522740711 #### [facility] (DEFAULT) [address] [place] [address] 97[address]Tpnf Abs#0.9 h36Haoj4.0-0.8[facility] HospitalComment on above:Performed By: #### 42240545, 1691570, 8400154685, 3179501, 3646306107, 7031035487, 850340394, 9571269281 #### [facility] (DEFAULT) [address] [place] [address] 479[address]Rkpq Abs#7.2 y94Ciloxs1.5-9.2MProMedica Defiance Regional HospitalComment on above:Performed By: #### 80686189, 5715478, 1782423065, 8760276, 1207627564, 5104122446, 112139476, 4362014221 #### [facility] (DEFAULT) [address] [place] [address] 34698Cslpvjsdnzz/100 WBC (Bld)62 %Nlwsnl57-45[facility] Comment on above:Performed By: #### 24070046, 1229527, 8875618184, 2027387, 2697147559, 3853757360, 897908061, 2642126115 #### [facility] (DEFAULT) [address] [place] [address] 59[address]VTG Standardon 15-81-8895bCLF Non AA>60Invalid Interpretation [facility] HospitalComment on above:Performed By: #### 90369769, 6098329, 4384382940, 7496790, 0895725515, 7073820249, 535668423, 1000776980 #### [facility] (DEFAULT) [address] [place] [address] 11031lXEJ AA>60Invalid Interpretation [facility] Comment on above:Performed By: #### 68539330, 0078138, 1185538358, 4659060, 3908552965, 1438586851, 574497545, 5912816416 #### [facility] (DEFAULT) [address] [place] [address]Raizk gap [Moles/Vol]7.8 mmol/LNormal5.0-19.0[facility] HospitalComment on above:Performed By: #### 01109277, 6027654, 9726296579, 2752679, 8909020096, 3611665587, 721315171, 6573557261 #### [facility] (DEFAULT) [address] [place] [address]Umumwkg [Mass/Vol]8.4 mg/dLLow8.9-10.3MProMedica Defiance Regional Hospital Comment on above:Performed By: #### 85920864, 0504008, 3506437429, 6786152, 3751184463, 8562058083, 606442104, 3238948035 #### [facility] (DEFAULT) [address] [place] [address] 75[address]Eetcybfe [Moles/Vol]105 mmol/SXtyblp881-732Mpjdvumi HospitalComment on above:Performed By: #### 80965550, 9425392, 4813727577, 9480160, 8173701816, 3333953266, 124955109, 3571124666 #### [facility] (DEFAULT) [address] [place] [address] 01843BV1 [Moles/Vol]26 mmol/JIzptsh84-49Pfhvxpaa Hospital Comment on above:Performed By: #### 74803882, 7100523, 1558517644, 7483934, 9316693560, 0237704457, 638311816, 9314027030 #### [facility] (DEFAULT) [address] [place] [address]05[address]Mshvtvwgro [Mass/Vol]0.80 mg/dLLow0.90-1.30[facility] HospitalComment on above:Performed By: #### 90071386, 4744461, 1007582051, 1081718, 8343187262, 3872514092, 299495539, 1028757996 #### [facility] (DEFAULT) [address] [place] [address] 520[address]Gjojnwz [Mass/Vol]97.0 mg/qJHmnwrm69.0-118.0[facility] HospitalComment on above:Performed By: #### 72072119, 4909389, 1245745477, 5518509, 1413851119, 3423264127, 111178253, 3006288966 #### [facility] (DEFAULT) [address] [place] [address] 25902Ogulmxeady457 mOsm/LInvalid Interpretation CodeMercy Health St. Charles Hospital HospitalComment on above:Performed By: #### 77385728, 5403952, 6718987592, 4601821, 7242144604, 3343594382, 475598619, 8335202521 #### [facility] (DEFAULT) [address] [place] [address] 91411Saewbgxeu [Moles/Vol]3.8 mmol/LNormal3.6-5.1[facility] HospitalComment on above:Performed By: #### 51097015, 1588082, 6246468153, 2936776, 2024946016, 1625340510, 501549328, 7120930222 #### [facility] (DEFAULT) [address] [place] [address] 66615Dvxgch [Moles/Vol]135.0 mmol/YBou183.0-144.0[facility] HospitalComment on above:Performed By: #### 44469960, 5147969, 7208088399, 7620992, 6748124291, 3783912503, 494604464, 2804812406 #### [facility] (DEFAULT) [address] [place] [address] 92134Sqeo nitrogen [Mass/Vol]9 mg/dLNormal8-26[facility] Hospital Comment on above:Performed By: #### 29066507, 1459897, 1226907955, 8873467, 3931168382, 8150572548, 879318997, 1328570319 #### [facility] (DEFAULT) [address] [place] [address] 04325Ekdf nitrogen/Creatinine [Mass ratio]11.2 mg/mgNormal 4.6-16.2[facility] HospitalComment on above:Performed By: #### 46289505, 8390021, 7730811512, 3406696, 1312684513, 1272817666, 377259786, 2736781431 #### [facility] (DEFAULT) [address] [place] [address] 62244XOJ w/ Auto Diffon 08-61-2594Amrvmqmtpcs distribution width (RBC) [Ratio]13.4 %Amwzgo70.5-15.0[facility] HospitalComment on above: Performed By: #### 57014742, 6934117, 0142921252, 9705210, 7118557733, 9730100378, 465446650, 1248689613 #### [facility] (DEFAULT) [address] [place], [place] [address]Hematocrit (Bld) [Volume fraction]46.1 %Fpullm33.8-51.9 [facility] HospitalComment on above:Performed By: #### 63654074, 7271712, 8944693925, 5651812, 1012903372, 0822740295, 840184289, 4861609176 #### [facility] (DEFAULT) [address] [place], [place] [address]Hemoglobin (Bld) [Mass/Vol]16.0 g/aBVqjrzx70.8-17.7 [facility] HospitalComment on above:Performed By: #### 88494291, 3344468, 0767954086, 7164389, 6580369878, 6154463546, 918565622, 6264221807 #### [facility] (DEFAULT) [address] [place], [place] [address]Man Diff?AutoInvalid Interpretation CodeKeenan Private Hospital Comment on above:Performed By: #### 72553470, 3710030, 1346709194, 1924655, 9514733158, 0156790058, 803088826, 4222568080 #### [facility] (DEFAULT) [address] [place] [address] (RBC) [Entitic mass]34 miIijglp02-68Axbpheqr Hospital Comment on above:Performed By: #### 14592361, 8649011, 2882842938, 1095940, 5393739212, 2424558368, 319285722, 5851539423 #### [facility] (DEFAULT) [address] [place], [place] [address] (RBC) [Mass/Vol]35 g/uNPxyaxm90-15Sxnsjymu Hospital Comment on above:Performed By: #### 85542451, 9115142, 1837211389, 1565601, 1388889748, 6313630811, 534689348, 1512719569 #### [facility] (DEFAULT) [address] [place] [address] 12802IQN (RBC) [Entitic vol]97 yNMxiyip75-681Vcddmcge Hospital Comment on above:Performed By: #### 44458066, 5670024, 3515684917, 9880025, 3706780672, 0056152665, 900385154, 0618885220 #### [facility] (DEFAULT) [address] [place] [address] 59765Kjfrxzkc144 h49Cfqzrf739-011Bmxkrzdz HospitalComment on above:Performed By: #### 97943734, 6958578, 1383111148, 3075604, 9061690242, 5523123415, 639665951, 3592152652 #### [facility] (DEFAULT) [address] [place] [address] 58738Evupnbjz mean volume (Bld) [Entitic vol]8.6 fLNormal 6.3-10.2Mag[facility]uder HospitalComment on above:Performed By: #### 51600816, 2163324, 2182673079, 9255635, 6031801888, 5095549149, 411426708, 3946748807 #### [facility] (DEFAULT) [address] [place] [address] 60353EJU4.76 m79Ucyzxb4.70-5.30[facility] HospitalComment on above:Performed By: #### 77783192, 0124767, 5622130308, 2938589, 2857294594, 5178419995, 896919600, 1199056087 #### [facility] (DEFAULT) [address] [place] [address] 88300LZN10.6 e92Inxo1.5-10.5[facility]uder HospitalComment on above: Performed By: #### 55289414, 9832010, 8989910767, 5374130, 4853570192, 7893171537, 848071902, 9718152866 #### [facility] (DEFAULT) [address] [place] [address] 62441Zdpuaib Function Panel Standardon 94-72-6204Xdihlmr [Mass/Vol]4.2 g/dLNormal3.5-5.0[facility] HospitalComment on above:Performed By: #### 00721314, 3868501, 1236895445, 9140257, 0693122547, 9821076340, 256670171, 4250590662 #### [facility] (DEFAULT) [address] [place] [address] 39837Glnhevx/Globulin [Mass ratio]1.3 {ratio}Low1.4-2.6[facility] HospitalComment on above:Performed By: #### 61857973, 0220185, 8503045886, 3918259, 1197540464, 3087284956, 491295804, 2697138013 #### [facility] (DEFAULT) [address] [place] [address] 80180Woq Phos50 IU/KTxkxpg84-87Khygpbnq HospitalComment on above:Performed By: #### 87735549, 6374646, 9713582309, 8558660, 3130430504, 3428779727, 374558123, 4654873158 #### [facility] (DEFAULT) [address] [place] [address] 34616MJX [Catalytic activity/Vol]13.0 U/LLow17.0-63.0[facility] HospitalComment on above:Performed By: #### 36083728, 6499263, 0842737789, 4272826, 2158397689, 4850165307, 956279161, 7756127081 #### [facility] (DEFAULT) [address] [place] [address] 59900VWC [Catalytic activity/Vol]13 U/CRxp60-38Tudbuyqu HospitalComment on above:Performed By: #### [id number], 2360068, [id number], 0220483, 4328023859, 2471219231, 651042602, [id number] #### [facility] (DEFAULT) [address] [place] [address] 43122Ukmi Direct0.10 mg/dLNormal0.10-0.50[facility] Hospital Comment on above:Performed By: #### [id number], 1195117, [id number], 7198970, 1932828620, 3531961691, 961648648, [id number] #### [facility] [address] [place] [address] 08820Bhhn Indirect0.8 mg/dLNormal0.2-0.8[facility] Comment on above:Performed By: #### [id number], 3509368, [id number], 7032629, 4117634208, 7101616720, 200796190, [id number] #### [facility] (DEFAULT) [address] [place] [address] 66588Nzin Total0.9 mg/dLNormal0.3-1.2[facility] HospitalComment on above:Performed By: #### [id number], 3344430, 4342691216, 4757258, 2011259398, 1368150858, 727815969, [id number] #### [facility] ([facility]) [address] [place] [address] 06421Obwewmet (S) [Mass/Vol]3.2 g/dLNormal1.5-4.3[facility] HospitalComment on above:Performed By: #### [id number], 5286160, 3089221214, 9529145, 7335840392, 2091193681, 611282438, [id number] #### [facility] (DEFAULT) [address] [place] [address] 05933Fzelzfi [Mass/Vol]7.4 g/dLNormal6.5-8.1[facility] Hospital Comment on above:Performed By: #### [id number], 3970317, 5304147777, 3484835, 3641095609, 5322021576, 718826578, [id number] #### [facility] (DEFAULT) [address] [place] [address] 54555CyaA6k Standardon 4.Hb17.3Invalid Interpretation [facility] HospitalComment on above:Performed By: #### [id number], 6094733, 3961121059, 5720679, 3093601652, 1297643979, 219685973, [id number] #### [facility] (DEFAULT) [address] [place] [address] 15682.Hgb A1c0.59 g/dLInvalid Interpretation CodeMercy Health [facility] HospitalComment on above:Performed By: #### [id number], 6283941, [id number], 9583471, 7024020652, 6031498617, 357666887, [id number] #### [facility] (DEFAULT) [address] [place] [address] 27243Utwgspi [Mass/Vol]102 mg/dLInvalid Interpretation Code [facility] HospitalComment on above:Performed By: #### [id number], 9941211, 1505625589, 1404742, 0304551475, 7856610612, 941351466, [id number] #### [facility] (DEFAULT) [address] [place] [address] 52589EfR2k (Bld) [Mass fraction]5.2 %Normal4.6-6.2Magruniversity hospitals [facility] HospitalComment on above:Performed By: #### [id number], 6556637, 2989249394, 7182051, 4810786059, 1417550313, 958205261, [id number] #### [facility] (DEFAULT) [address] [place] [address] 18110Ecsoy Panel Standardon 36-45-8439Wwigknvrgpd [Mass/Vol] 181.0 mg/vMKlubvk55.0-200.0[facility] HospitalComment on above:Performed By: #### [id number], 1223412, 0205955802, 2254065, 7513739691, 2350803461, 183494018, [id number] #### [facility] (DEFAULT) [address] [place] [address] 59982Ysxjwnsczxk in HDL [Mass/Vol]45 mg/mRBvdqim21-54Tbuhoxtz HospitalComment on above:Performed By: #### [id number], 1130458, 1140263801, 9014702, 3528715391, 4857675191, 503348850, 8954490880 #### [facility] [address] [place] [address] 20548Dlpiptyrdfu in LDL [Mass/Vol]122 mg/dLHigh1-100[facility] HospitalComment on above:Performed By: #### [id number], 2730797, 0193710800, 7689237, 0527381598, 5609501395, 192991095, [id number] #### [facility] [address] [place] [address] 26755Dtgettlokgc.total/Cholesterol in HDL [Mass ratio]4.0 {ratio}Normal0.0-4.5[facility] HospitalComment on above:Performed By: #### [id number], 7723283, 3661937279, 7672758, 5677123650, 9369758012, 808813400, 1085932048 #### [facility] (DEFAULT) [address] [place] [address] 65183Uackovagfftu [Mass/Vol]69.0 mg/dLNormal0.0-150.0[facility] HospitalComment on above:Performed By: #### [id number], 3458890, 4323968227, 3959240, 3844911189, 8588340211, 396384316, 3470591688 #### [facility] [address] [place] [address] 50891KUWM.14 mg/dLNormal5-40[facility] HospitalComment on above: Performed By: #### 48812557, 6384762, 0619924960, 5930885, 5531037893, 1193308384, 417548118, 8225507086 #### [facility] (DEFAULT) [address] [place] [address] 35144VFJ Screenon 72-78-3649QGD Screen1.28 ng/mLNormal0.00-4.00 [facility] HospitalComment on above:Result Comment: [employer] Clinical System (Chemiluminescence) Values obtained with different assay methods or kits cannot be used interchangeably. Results cannotbe interpreted as absolute evidence of the presence or absence of malignant disease. Performed By: #### [id number], 8072618, 1884144299, 7225599, 8715290737, 9566770831, 086595909, [id number] #### [facility] (DEFAULT) [address] [place] [address] 22172Rstjripm Orderson 49-78-7190Ypylpbtj Orders [id number]#1.00OTGTIFFFulton County Health CenterTS w/ Reflex to FT4on 26-23-0133KUC Qn1.36 m[IU]/LNormal0.45-5.33[facility] Comment on above:Performed By: #### [id number], 1654344, 2840614411, 5244591, 8871068777, 5947534528, 837437447, [id number] #### [facility] (DEFAULT) [address] [place] [address] 00144IFA 12 lead ECGon 47-12-9373KFD 12 lead [facility] [place] [address] Electrocardiograph Report Signed Patient: Dexter Summers MR#: [id number] 513 : 1975 Acct:[id number] Age/Sex: 48 / M ADM Date: 11/12/23 Loc: Room: 1A4680-0 Type: ADM IN Attending Dr: Terrance Hartley MD Ordering Provider: Terarnce Hartley MD Date of Service: 11/13/23 ECG/ECG 12 lead ECG: ANTIPSYCHOTIC THERAPY Copies to: Test Reason : Blood Pressure : / mmHG Vent. Rate : 064 BPM Atrial Rate : 064 BPM P-R Int : 126 ms QRS Dur : 086 ms QT Int : 390 ms P-R-T Axes : 085 073 079 degrees QTc Int : 402 ms Normal sinus rhythm Normal ECG No previous ECGs available Confirmed by BEKAH GOLDSTEIN [facility] [place] ([id number]) on 11/13/2023 12:56:52 PM Referred By: Electronically Signed By:GARLAND GODFREY MD [facility] Transcribed By: MUS Signed By Garland Godfrey MD, [facility] 11/13/23 1256[facility] Physician GroupAlanine aminotransferase [Enzymatic activity/volume] in Serum or PlasmaOrdered By: Sudhakar Rizo on 07-40-8767ODD [Catalytic activity/Vol]9 U/LNormal7-52[facility] - WestComment on above:Performed By: #### CMP, CBC, ETOH #### [facility] [address] [place] [address] USAAlbumin [Mass/volume] in Serum or Plasma by Bromocresol green (BCG) dye binding methoOrdered By: Sudhakar Rizo on 11-04-5983Zcnebzp BCG dye [Mass/Vol]4.4 g/dL3.5-5.7FMercy Health St. Anne HospitalAlkaline phosphatase [Enzymatic activity/volume] in Serum or PlasmaOrdered By: Sudhakar Rizo on 76-60-3094ALA [Catalytic activity/Vol]57 U/WKkhbjj79-865XrfihvozzLake County Memorial Hospital - WestComment on above:Performed By: #### CMP, CBC, ETOH #### [facility] [address] [place] [id number] USAAmphetamine Screen Ql (U)Ordered By: Sudhakar Rizo on 41-36-9019Natytrwgvstv Ql (U)NegativeNegativeLake County Memorial Hospital - West Aspartate aminotransferase [Enzymatic activity/volume] in Serum or PlasmaOrdered By: Sudhakar Rizo on 66-98-2135TGD [Catalytic activity/Vol]14 U/NBicflf47-93 [facility] - WestComment on above:Performed By: #### CMP, CBC, ETOH #### [facility] [address] [place] [address] USAAutomated basophil %Ordered By: Sudhakar Sallie on 97-22-8000Unmtgnfcq/100 WBC (Bld)1.1 %Normal.[facility] Comment on above:Performed By: #### CMP, CBC, ETOH #### [place] [address] USAAutomated basophil countOrdered By: Sudhakar Sallie on 56-33-6658Niwagohmv (Bld) [#/Vol]0.1 10*3/uLNormal0.0-0.2FMercy Health St. Anne HospitalComment on above:Result Comment: PERFORMED BY: [place] [address] PATHOLOGIST GRADUATE FELLOW DOC INGRAM M.D.Performed By: #### CMP, CBC, ETOH #### [place] [address] USAAutomated blood monocyte countOrdered By: Sudhakar Rizo on 53-36-0368Iempkeuvy (Bld) [#/Vol]0.9 10*3/uLHigh0.0-0.8[facility] - WestComment on above:Performed By: #### CMP, CBC, ETOH #### [place] [address] USAAutomated eosinophil %Ordered By: Sudhakar Sallie on 02-76-2825Ydumdmqcatv/100 WBC (Bld)1.0 %Normal.[facility] Comment on above:Performed By: #### CMP, CBC, ETOH #### [place] [address] USAAutomated eosinophil countOrdered By: Sudhakar Sallie on 31-09-6792Ewtncamtfwz (Bld) [#/Vol]0.1 10*3/uLNormal0.0-0.45[facility] Hospital - WestComment on above:Performed By: #### CMP, CBC, ETOH #### [place] [address] USAAutomated monocyte %Ordered By: Sudhakar Rizo on 19-30-8861Eplozblnq/100 WBC (Bld)7.4 %Normal.[facility] Comment on above:Performed By: #### CMP, CBC, ETOH #### [facility] [address] [place] [address] USAAutomated neutrophil %Ordered By: Sudhakar Rizo on 37-07-1327Ccwqigeazzd/100 WBC (Bld)58.6 %Normal.[facility] - WestComment on above:Performed By: #### CMP, CBC, ETOH #### [facility] [address] [place] [address] USABarbiturates [Presence] in Urine by Screen methodOrdered By: Sudhakar Rizo on 79-53-0277Orirmloiwpdr Screen Ql (U)NegativeNegative [facility] - WestBenzodiazepines Screen Ql (U)Ordered By: Sudhakar Rizo on 40-00-2631Ejqxfqeqlboyzlj Ql (U)NegativeNegativeLake County Memorial Hospital - WestBenzoylecgonine [Presence] in Urine by Screen method Ordered By: Sudhakar Rizo on 94-22-6342Xytlkkqkcfntqre Screen Ql (U)Negative NegativeLake County Memorial Hospital - WestBilirubin Test strip Ql (U)Ordered By: Sudhakar Rizo on 42-69-5256Igadahsqj Ql (U)NegativeNegMercy Health St. Elizabeth Boardman HospitalBilirubin.total [Mass/volume] in Serum or PlasmaOrdered By: Sudhakar Rizo on 54-66-3123Rlkncmzay [Mass/Vol]0.8 mg/dLNormal0.3-1.0 [facility] - WestComment on above:Performed By: #### CMP, CBC, ETOH #### [facility] [address] [place] [id number] USACalcium [Mass/volume] in Serum or PlasmaOrdered By: Sudhakar Rizo on 20-16-8807Tgcrdqv [Mass/Vol]9.5 mg/dLNormal8.6-10.3 [facility] - WestComment on above:Performed By: #### CMP, CBC, ETOH #### [facility] [address] [place] [address] USACannabinoids [Presence] in Urine by Screen methodOrdered By: Sudhakar Rizo on 89-87-4736Hfyjmvllbcal Screen Ql (U)NegativeNegative [facility] Hospital - WestComment on above:These are unconfirmed results and should not be used for legal purposes. Drug Cut-Off Concentration: AMPH 1000 ng/mL KAYLI 200 ng/mL KEN 200 ng/mL COCM 300 ng/mL OP 300 ng/mL PCP 25 ng/mL THC 20 ng/mLCarbon dioxide, total [Moles/volume] in Serum or PlasmaOrdered By: Sudhakar Rizo on 21-92-8059NO8 [Moles/Vol]28.6 mmol/EZtancn00.0-31.0 [facility] - WestComment on above:Performed By: #### CMP, CBC, ETOH #### [facility] [address] [place] [address] USAChloride [Moles/volume] in Serum or PlasmaOrdered By: Sudhakar Rizo on 96-40-7417Powndxvb [Moles/Vol]105 mmol/GRtgelt05-607 [facility] - WestComment on above:Performed By: #### CMP, CBC, ETOH #### [facility] [address] [place] [address] USACholesterol [Mass/volume] in Serum or PlasmaOrdered By: Terrance Hartley on 18-75-1196Pdvsclpalum [Mass/Vol]150 mg/uQUlueyy324-128 [facility] - WestComment on above:Chol less than 200 mg/dl low riskChol 201-239 mg/dl borderline riskChol 240 mg/dl and greater high riskOrder Comment: FASTING Y Comment USE BLOOD COLLECTED IN ED PLEASEResult Comment: Chol less than 200 mg/dl low risk Chol 201-239 mg/dl borderline risk Chol 240 mg/dl and greater high riskPerformed By: #### TSH3 wRFLX, LIPID, [id number] #### [facility] [address] [place] [address] USACholesterol in LDL Calc [Mass/Vol]Ordered By: Terrance Hartley on 12-45-9739Ajppkiorpbz in LDL [Mass/Vol]92 mg/dL0-100[facility] - WestComment on above:LDL ATP III CLASSIFICATIONLDL less than 100 mg/dL OptimalLDL 100-129 mg/dL Near or above rauabwdHHD285-126 mg/dL Borderline highLDL 160-189 mg/dL HighLDL greater than 189 mg/dL Very high Cholesterol in VLDL Calc [Mass/Vol]Ordered By: Terrance Hartley on 15-86-7969Tmjfvttjbjw in VLDL [Mass/Vol]20 mg/dLLake County Memorial Hospital - WestColor of Urine by AutoOrdered By: Sudhakar Rizo on 72-95-7075Msydt (U) Light-yellowNormalYellowLake County Memorial Hospital - WestComment on above:Order Comment: Name Collection Type:: Clean-Voided MidstreamPerformed By: #### URDS, UA #### [place] [address] USAComplete Blood Count Auto Diffon 78-17-0564Ebww Corpuscular HGB Conc33.3 g/dGMozqtq40.5-35.6The [facility] Physician GroupComment on above:Performed By: #### CMP, CBC, ETOH #### [place] [address] USAMonocytes/100 WBC (Bld)16.76 %Normal0.00-20.00The [facility] Physician [facility] CenterComment on above:Performed By: #### CMP, CBC, ETOH #### [place] [address] USANRBC%0.1 /100{WBC}Normal0-0.5The [facility] Comment on above:Performed By: #### CMP, CBC, ETOH #### [place] [address] USAComprehensive Metabolic Panelon 43-31-6948Luwneok [Mass/Vol]4.4 g/dLNormal3.5-5.7The [facility] Physician GroupComment on above: Performed By: #### CMP, CBC, ETOH #### [place] [address] USACreatinine Clr Calc Udlfbpcp91.60NormalThe [facility] Physician GroupComment on above:Result Comment: PERFORMED BY: [place] [address] PATHOLOGIST GRADUATE FELLOW DOC INGRAM M.D.Performed By: #### CMP, CBC, ETOH #### [place] [address] USAGFR/1.73 sq M.predicted MDRD (S/P/Bld) [Vol rate/Area] mL/min/{1.73_m2}NormalThe [facility] Physician GroupComment on above:Performed By: #### CMP, CBC, ETOH #### [place] [address] USACreatinine [Mass/volume] in Serum or PlasmaOrdered By: Sudhakar Rizo on 55-94-8372Pkcqvrpubc [Mass/Vol]1.13 mg/dLNormal0.70-1.30 [facility] - WestComment on above:Performed By: #### CMP, CBC, ETOH #### [place] [address] USADrug Screen,Urineon 06-99-3158Bucaxawckwy Screen,Urine NegativeNormalNegativeThe [facility] Physician GroupComment on above:Performed By: #### URDS, UA #### [place] [address] USABarbiturate Screen,UrineNegativeNormalNegativeThe [facility] Physician GroupComment on above:Performed By: #### URDS, UA #### [place] [address] USABenzodiazepines Screen,UrineNegativeNormalNegativeThe [facility] Physician GroupComment on above:Performed By: #### URDS, UA #### [place] [address] USACannabinoid Screen,UrineNegativeNormalNegativeThe [facility] Physician GroupComment on above:Result Comment: These are unconfirmed results and should not be used for legal purposes. Drug Cut-Off Concentration: AMPH 1000 ng/mL KAYLI 200 ng/mL KEN 200 ng/mL COCM 300 ng/mL OP 300 ng/mL PCP 25 ng/mL THC 20 ng/mL PERFORMED BY: [address] [place] [address] PATHOLOGIST GRADUATE FELLOW DOC INGRAM M.D.Performed By: #### URDS, UA #### [place] [address] USACocaine Screen,UrineNegativeNormalNegativeThe [facility] Physician GroupComment on above:Performed By: #### URDS, UA #### [place] [address] USAOpiate Screen,UrineNegativeNormalNegativeH[facility] Physician GroupComment on above:Performed By: #### URDS, UA #### [place] [address] USAPhencyclidine Screen,UrineNegativeNormalNegativeThe [facility] Physician GroupComment on above:Performed By: #### URDS, UA #### [place] [address] USAErythrocyte distribution width [Ratio] by Automated count Ordered By: Sudhakar Rizo on 88-21-9713Nnczweorrsc distribution width (RBC) [Ratio]13.8 %Hgdzho23.0-14.8[facility] Hospital - WestComment on above: Performed By: #### CMP, CBC, ETOH #### [place] [address] USAErythrocytes [#/volume] in Blood by Automated countOrdered By: Sudhakar Rizo on 38-73-4836YGK (Bld) [#/Vol]5.09 10*6/uLNormal3.90-5.60 [facility] - WestComment on above:Performed By: #### CMP, CBC, ETOH #### [place] [address] USAEthanol [Mass/volume] in Serum or PlasmaOrdered By: Sudhakar Rizo on 93-64-9628Dhkgapf [Mass/Vol]mg/dLNormRiverside Methodist HospitalComment on above:Performed By: #### CMP, CBC, ETOH #### [place] [address] USAEthanol [Mass/Vol]TNPLake County Memorial Hospital - West Comment on above:Test not performedEthyl Alcohol Profileon 44-54-9242Poyboqh EthanolNot performedNoYadkin [facility] Hospital Physician GroupComment on above:Result Comment: PERFORMED BY: [place] [id number] PATHOLOGIST GRADUATE FELLOW DOC INGRAM M.D.Performed By: #### CMP, CBC, ETOH #### [facility] [address] [place], [place] [address] USAGlucose [Mass/volume] in Serum or PlasmaOrdered By: Sudhakar Rizo on 95-93-7020Jvepmxa [Mass/Vol]92 mg/nTQnnjay41-704OtoxmiscrLake County Memorial Hospital - WestComment on above:ADA recommended reference rangeRandom Glucose Reference Range is dependent on time and content of last meal. Glucose of more than 200 mg/dL in a nonstressed, ambulatory subject supports the diagnosisof Diabetes Mellitus.Result Comment: Random Glucose Reference Range is dependent on time and content of last meal. Glucose of more than 200 mg/dL in a nonstressed, ambulatory subject supports the diagnosis of Diabetes Mellitus. ADA recommended reference rangePerformed By: #### CMP, CBC, ETOH #### [facility] [address] [place], [place] [address] USAGlucose [Mass/volume] in Urine by Test stripOrdered By: Sudhakar Rizo on 37-52-6393Odninio Test strip (U) [Mass/Vol]Normal mg/dL NormalLake County Memorial Hospital - WestHematocrit [Volume Fraction] of Blood by Automated countOrdered By: Sudhakar Rizo on 84-83-8769Qucxpgowtl (Bld) [Volume fraction]48.8 %Dvrrrb05.8-50.0[facility] - WestComment on above:Performed By: #### CMP, CBC, ETOH #### [facility] [address] [place], [place] [address] USAHemoglobin Test strip Ql (U)Ordered By: Sudhakar Rizo on 95-11-2922Fnxbbgooyy Ql (U)NegativeNegativeLake County Memorial Hospital - West Hemoglobin [Mass/volume] in BloodOrdered By: Sudhakar Rizo on 11-12-2023 Hemoglobin (Bld) [Mass/Vol]16.2 g/nDQlgnhj12.0-17.0[facility] - WestComment on above:Performed By: #### CMP, CBC, ETOH #### [facility] [address] [place] [address] USAKetones [Presence] in Urine by Test stripOrdered By: Sudhakar Rizo on 50-66-9197Zyzjlwq Ql (U)NegativeNormalNegMercy Health St. Elizabeth Boardman HospitalComment on above:Order Comment: Name Collection Type:: Clean-Voided MidstreamPerformed By: #### URDS, UA #### [facility] [address] [place] [address] USALeukocyte esterase [Presence] in Urine by Test strip Ordered By: Sudhakar Rizo on 38-02-3897Dltxjdioq esterase Test strip Ql (U) NegativeCorey HospitalComment on above:Order Comment: Name Collection Type:: Clean-Voided MidstreamPerformed By: #### URDS, UA #### [facility] [address] [place] [address] USALeukocytes [#/volume] corrected for nucleated erythrocytes in Blood by Automated counOrdered By: Sudhakar Rizo on 16-07-5608OWQ corrected for nucl RBC Auto (Bld) [#/Vol]12.6 10*3/uL4.1-10.5FMercy Health St. Anne HospitalLeukocytes [#/volume] in Blood by Automated countOrdered By: Sudhakar Rizo on 82-70-2823PVD (Bld) [#/Vol]12.6 10*3/uLHigh4.1-10.5 [facility] - WestComment on above:Performed By: #### CMP, CBC, ETOH #### [facility] [address] [place] [address] USALipid Panelon 32-81-7516ATL Cholesterol,Qkvbmgumok47 mg/dL Normal0-100The [facility] Physician GroupComment on above:Order Comment: FASTING Y Comment USE BLOOD COLLECTED IN ED PLEASEResult Comment: LDL ATP III CLASSIFICATION LDL less than 100 mg/dL Optimal LDL 100-129 mg/dL Near or above optimal LDL 130-159 mg/dL Borderline high LDL 160-189 mg/dL High LDL greater than 189 mg/dL Very highPerformed By: #### TSH3 wRFLX, LIPID, [id number] #### [place] [id number] USATriglyceride w/Fuplov204 mg/dLNormal0-149[facility] Physician GroupComment on above:Order Comment: FASTING Y Comment USE BLOOD COLLECTED IN ED PLEASEResult Comment: TRIG ATP III CLASSIFICATION TRIG less than 150 mg/dL Normal TRIG 150-199 mg/dL Borderline high TRIG 200-500 mg/dL High TRIG greater than 500 mg/dL Very high Standard traceable to the Center for Disease Conrtrol and Prevention (CDC) test method.Performed By: #### TSH3 wRFLX, LIPID, [id number] #### [place] [address] USAVLDL HWSYIDZNNQI64 mg/dLNormalThe [facility] Physician GroupComment on above:Order Comment: FASTING Y Comment USE BLOOD COLLECTED IN ED PLEASEPerformed By: #### TSH3 wRFLX, LIPID, [id number] #### [place] [id number] USALymphocytes [#/volume] in Blood by Automated countOrdered By: Sudhakar Rizo on 19-25-6794Xlesnailmgb (Bld) [#/Vol]4.0 10*3/uLNormal 1.00-4.8[facility] Hospital - WestComment on above:Performed By: #### CMP, CBC, ETOH #### [place] [id number] USALymphocytes/100 leukocytes in Blood by Automated count Ordered By: Sudhakar Rizo on 22-44-0412Chuccpvcffx/100 WBC (Bld)31.9 %Normal .[facility] Hospital - WestComment on above:Performed By: #### CMP, CBC, ETOH #### [place] [id number] USAMCH [Entitic mass] by Automated countOrdered By: Sudhakar Rizo on 19-56-2643BSW (RBC) [Entitic mass]31.9 vzWmopzz08.5-35.2FMercy Health St. Anne HospitalComment on above:Performed By: #### CMP, CBC, ETOH #### [facility] [address] [place] [address] USAHC Auto (RBC) [Mass/Vol]Ordered By: Sudhakar Rizo on 73-01-1255FQRX (RBC) [Mass/Vol]33.3 g/dL32.5-35.6FMercy Health St. Anne HospitalMCV [Entitic volume] by Automated countOrdered By: Sduhakar Rizo on 94-20-3416AYK (RBC) [Entitic vol]95.9 gPYejbph72.5-101[facility] - WestComment on above:Performed By: #### CMP, CBC, ETOH #### [facility] [address] [place] [address] USAMonocyte distribution width [Entitic volume] in Blood by AutomatedOrdered By: Sudhakar Rizo on 00-27-3620Yodmlyof distribution width Auto (Bld) [Entitic vol]16.76 %0.00-20.00[facility] Neutrophils [#/volume] in Blood by Automated countOrdered By: Sudhakar Rizo on 02-63-1836Mcuefdsniok (Bld) [#/Vol]7.4 10*3/uLNormal1.8-7.7FMercy Health St. Anne HospitalComment on above:Performed By: #### CMP, CBC, ETOH #### [facility] [address] [place] [address] USANitrite Test strip Ql (U)Ordered By: Sudhakar Rizo on 78-92-1580Hyzqlhn Ql (U)NegativeNegativeLake County Memorial Hospital - WestNo Panel InformationOrdered By: Sudhakar Rizo on 87-90-5868Yaffbpeur GFR (CKD-EPI)> 60.0 mL/MinLake County Memorial Hospital - WestPharmacy Creatinine Clearance (Chem76.60[facility] Hospital - WestNucleated erythrocytes [Presence] in Blood by Automated countOrdered By: Sudhakar Rizo on 18-42-0577Ayqzewlhj RBC Auto Ql (Bld)0.1 /100{WBC}0-0.5FMercy Health St. Anne HospitalOpiates [Presence] in Urine by Screen methodOrdered By: Sudhakar Rizo on 97-11-3352Xtjficp Screen Ql (U)NegativeNegMercy Health St. Elizabeth Boardman HospitalPhencyclidine Screen Ql (U)Ordered By: Sudhakar Rizo on 40-16-9047Lgzupmfyurjof Ql (U)NegativeNegMercy Health St. Elizabeth Boardman Hospital Platelet mean volume [Entitic volume] in Blood by Automated countOrdered By: Sudhakar Rizo on 60-99-2120Ysvikwaa mean volume (Bld) [Entitic vol]9.3 fL Normal6.6-10.1FMercy Health St. Anne HospitalComment on above:Performed By: #### CMP, CBC, ETOH #### [facility] [address] [place] [address] USAPlatelets [#/volume] in Blood by Automated countOrdered By: Sudhakar Rizo on 75-95-0681Vuwsedyaf (Bld) [#/Vol]261 10*3/uLNormal 150-450[facility] - WestComment on above:Performed By: #### CMP, CBC, ETOH #### [facility] [address] [place] [id number] USAPotassium [Moles/volume] in Serum or PlasmaOrdered By: Sudhakar Rizo on 36-86-6531Ciibeqyha [Moles/Vol]4.2 mmol/LNormal3.5-5.1 [facility] - WestComment on above:Performed By: #### CMP, CBC, ETOH #### [place] [id number] USAProtein Test strip (U) [Mass/Vol]Ordered By: Sudhakar Rizo on 18-32-0044Jwsubpr (U) [Mass/Vol]NegativeNegMercy Health St. Elizabeth Boardman HospitalProtein [Mass/volume] in Serum or PlasmaOrdered By: Sudhakar Rizo on 68-57-8596Fbqghni [Mass/Vol]7.1 g/dLNormal6.4-8.9[facility] - WestComment on above:Performed By: #### CMP, CBC, ETOH #### [address] [address] USASerum globulin measurement by calculation (mass/volume) Ordered By: Sudhakar Rizo on 07-50-7119Mnywofbx (S) [Mass/Vol]2.7 g/dLNormal [facility] - WestComment on above:Performed By: #### CMP, CBC, ETOH #### [facility] [address] [place] [address] USASerum or plasma albumin/globulin mass ratioOrdered By: Sudhakar Rizo on 53-10-9036Iuqvgdb/Globulin [Mass ratio]1.6 {ratio}Normal [facility] - WestComment on above:Performed By: #### CMP, CBC, ETOH #### [facility] [address] [place] [address] USASerum or plasma anion gap determinationOrdered By: Sudhakar Rizo on 78-17-2141Nrqgl gap [Moles/Vol]10.6 mmol/LNormal6.0-15.0 [facility] - WestComment on above:Performed By: #### CMP, CBC, ETOH #### [facility] [address] [place] [address] USASerum or plasma high density lipoprotein (HDL) cholesterol measurementOrdered By: Terrance Hartley on 08-75-6869Llttomwvoif in HDL [Mass/Vol]38 mg/gBBsehfz72-39Uttrg[address] [place], [place] [address]Comment on above: HDL CHOL ATP-III CLASSIFICATION Cardiovascular RiskHDL > or equal to 60 mg/dL LOWHDL < 40 mg/dL HIGHOrder Comment: FASTING Y Comment USE BLOOD COLLECTED IN ED PLEASEResult Comment: HDL CHOL ATP-III CLASSIFICATION Cardiovascular Risk HDL > or equal to 60 mg/dL LOW HDL < 40 mg/dL HIGHPerformed By: #### TSH3 wRFLX, LIPID, [id number] #### [facility] [address] [place], [place] [address] USASerum or plasma total cholesterol/high density lipoprotein (HDL) cholesterol mass ratOrdered By: Terrance Hartley on 11-12-2023 Cholesterol.total/Cholesterol in HDL [Mass ratio]3.9 {ratio}Normal<5.0[facility] - WestComment on above:Order Comment: FASTING Y Comment USE BLOOD COLLECTED IN ED PLEASEPerformed By: #### TSH3 wRFLX, LIPID, [id number] #### [facility] [address] [place] [address] USASodium [Moles/volume] in Serum or PlasmaOrdered By: Sudhakar Rizo on 95-10-1324Nyljlo [Moles/Vol]140 mmol/EZcvqqx287-763 [facility] WestComment on above:Performed By: #### CMP, CBC, ETOH #### [facility] [address] [place] [address] USASpecific gravity Test strip (U) [Rel density]Ordered By: Sudhakar Rizo on 33-59-5883Mniejipw gravity (U) [Rel density]1.007 1.001-1.030[facility] - WestThyroid Stim Hormone w/Rflxon 16-02-9658Resewar Stim Hormone w/Rflx2.33 u[iU]/mLNormal0.45-5.33The [facility] Physician GroupComment on above:Order Comment: FASTING Y Comment USE BLOOD COLLECTED IN ED PLEASEPerformed By: #### TSH3 wRFLX, LIPID, [id number] #### [facility] [address] [place] [address] USAThyrotropin [Units/volume] in Serum or PlasmaOrdered By: Terrance Hartley on 83-79-8866QVO Qn2.33 m[IU]/L0.45-5.33[facility] - WestTriglyceride [Mass/volume] in Serum or PlasmaOrdered By: Terrance Hartley on 66-88-1341Gpkrfnzpbbch [Mass/Vol]100 mg/dL0-149 [facility] WestComment on above:TRIG ATP III CLASSIFICATIONTRIG less than 150 mg/dL NormalTRIG 150-199 mg/dL Borderline highTRIG 200-500 mg/dL High TRIG greater than 500 mg/dL Very highStandard traceable to the Center for Disease Conrtrol and Prevention (CDC) test method. Urea nitrogen [Mass/volume] in Serum or PlasmaOrdered By: Sudhakar Rizo on 86-73-5149Jxvc nitrogen [Mass/Vol]9 mg/dLNormal7-25[facility] WestComment on above:Performed By: #### CMP, CBC, ETOH #### [facility] [address] [place] [address] USAUrinalysison 83-66-3149Nhvwkytov,UrineNegativeNormal NegativeThe [facility] Physician GroupComment on above:Order Comment: Name Collection Type:: Clean-Voided MidstreamPerformed By: #### URDS, UA #### [place] [address] USAGlucose Ql (U)NormalNormalNormalThe [facility] Physician GroupComment on above:Order Comment: Name Collection Type:: Clean-Voided MidstreamPerformed By: #### URDS, UA #### [place] [address] USANitrite,UrineNegativeNormalNegativeThe [facility] Physician GroupComment on above:Order Comment: Name Collection Type:: Clean-Voided MidstreamPerformed By: #### URDS, UA #### [place] [address] USAOccult Blood,UrineNegativeNormalNegativeThe [facility] Physician GroupComment on above:Order Comment: Name Collection Type:: Clean- Voided MidstreamResult Comment: PERFORMED BY: [place] [address] PATHOLOGIST GRADUATE FELLOW DOC INGRAM M.D.Performed By: #### URDS, UA #### [place] [address] USAProtein,UrineNegativeNormalNegativeThe [facility] Physician GroupComment on above:Order Comment: Name Collection Type:: Clean-Voided MidstreamPerformed By: #### URDS, UA #### [place] [address] USASpecificy [place],Urine1.622Firejp9.001-1.030The [facility] Physician GroupComment on above:Order Comment: Name Collection Type:: Clean- Voided MidstreamPerformed By: #### URDS, UA #### [place] [address] USAUrobilinogen,UrineNormalNormalNormalThe [facility] Physician GroupComment on above:Order Comment: Name Collection Type:: Clean- Voided MidstreamPerformed By: #### URDS, UA #### [facility] [address] [place] [address] USAUrine appearanceOrdered By: Sudhakar Rizo on 00-28-8669Mjjqyiaadn (U)ClearNormalClearLake County Memorial Hospital - WestComment on above:Order Comment: Name Collection Type:: Clean-Voided MidstreamPerformed By: #### URDS, UA #### [facility] [address] [place] [address] USAUrobilinogen Test strip (U) [Mass/Vol]Ordered By: Sudhakar Rizo on 84-09-9243Upomjjjpkvas (U) [Mass/Vol]Normal mg/dLNoUC HealthVitamin D 25 Hydroxy Totalon 52-34-5619Hpmkhzw D 25 Hydroxy Total37.7 ng/oDXivxdj01-786Zho [facility] Physician GroupComment on above:Order Comment: FASTING Y Comment USE BLOOD COLLECTED IN ED PLEASEResult Comment: VITAMIN D STATUS 25(OH)VITAMIN D RANGE (ng/mL) Deficient <20 Insufficient 20 to <30 Sufficient 30 to 100 Reference: Qiana MF,Adriane NC, Zain HARRIS, et al. Evaluation,treatment, and prevention of vitamin D deficiency; an Endocrine Society clinical practice guideline. JCEM. 2010; 96(7):1911-30. PERFORMED BY: [place] [id number] PATHOLOGIST GRADUATE FELLOW DOC INGRAM M.D.Performed By: #### TSH3 wRFLX, LIPID, [id number] #### [facility] [address] [place] [address] USAVitamin D+Metabolites [Mass/volume] in Serum or Plasma Ordered By: Terrance Hartley on 10-37-7748Inybafp D+Metabolites [Mass/Vol] 37.7 ng/yB57-004SiyzefgwuLake County Memorial Hospital - WestComment on above:VITAMIN D STATUS 25(OH)VITAMIN D RANGE (ng/mL) Deficient <20 Insufficient 20 to <79Jevqbwtdvu14 to 100Reference: Qiana MF,Adriane NC, Zain HARRIS, et al. Evaluation,treatment, and prevention of vitamin D deficiency; an Endocrine Society clinical practice guideline. JCEM. 2010; 96(7):1911-30.pH of Urine by Test stripOrdered By: Sudhakar Rizo on 75-68-6768yL (U)6.5 [pH]Normal 5.0-9.0[facility] - WestComment on above:Order Comment: Name Collection Type:: Clean-Voided MidstreamPerformed By: #### URDS, UA #### [facility] [address] [place] [address] USART PULMONARY FUNCTION TESTon 60-40-0512[place], [place] [address] Respiratory Report Signed Patient: DEXTER SUMMERS MR#: [id number] : 1975 Acct:[id number] Age/Sex: 47 / M ADM Date: 05/09/23 Loc: CARD Attending Dr: Sarmad Jefferson M.D. Ordering Physician: Sarmad Jefferson M.D. Date of Service: 05/09/23 Procedure(s): RT pulmonary function test Accession Number(s): [id number] cc: [facility] Test Date: 2023-05-09 Pat Name: DEXTER SUMMERS Department: Room: - Gender: Male Complex Manager: Salo Hall RRT : 1975 Requested By: SARMAD JEFFERSON Order Number: [id number] Vanesa MD: Sukhjinder Nava Interpretive Statements Pulmonary function testing was completed according to ATS criteria. Findings were considered accurate and reproducible. Both pre- and post-bronchodilator values utilized for spirometry. Spirometry (based on pre-bronchodilator values): -FEV1/FVC: Low normal @ 48% -FEV1: Moderately reduced @ 62% -FVC: Normal @ 101% -There is a partial bronchodilator response in FEV1 which meets >200mL increase but <12% change. Lung volumes by plethysmography (based on pre-bronchodilator values): -RV: Increased @ 201% -TLC: Increased @ 130% Diffusion capacity: -DLCO: Moderate reduction @ 58% when corrected for Hb 15.5g/dL Flow-volume loop: -Moderate obstructive pattern Impressions: -Spirometry suggests moderate obstruction without a positive bronchodilator response. An elevated RV and TLC suggest air trapping and hyperinflation respectively. There is a moderately reduced diffusion capacity. Overall study is compatible with COPD/emphysema. Clinical correlation required. Electronically Signed On 05-12-2023 17:23:02 EST by Sukhjinder Nava Dictated By: Sukhjinder Nava D.O. Signed By: 05/12/23 5623 DD/ 1306 TD/TT: Cylinder Machine Operator Pulp Drier:TBHRadiology, Radiologist, - 05/12/2023 [place] [address] Respiratory Report Signed Patient: DEXTER SUMMERS MR#: [id number] : 1975 Acct:[id number] Age/Sex: 47 / M ADM Date: 05/09/23 Loc: CARD Attending Dr: Sarmad Jefferson M.D. Ordering Physician: Sarmad Jefferson M.D. Date of Service: 05/09/23 Procedure(s): RT pulmonary function test Accession Number(s): [id number] cc: [facility] Test Date: 2023-05-09 Pat Name: DEXTER SUMMERS Department: Room: - Gender: Male Complex Manager: Salo Hall RRT : 1975 Requested By: SARMAD JEFFERSON Order Number: [id number] Reading MD: Sukhjinder Nava Interpretive Statements Pulmonary function testing was completed according to ATS criteria. Findings were considered accurate and reproducible. Both pre- and post-bronchodilator values utilized for spirometry. Spirometry (based on pre-bronchodilator values): -FEV1/FVC: Low normal @ 48% -FEV1: Moderately reduced @ 62% -FVC: Normal @ 101% -There is a partial bronchodilator response in FEV1 which meets >200mL increase but <12% change. Lung volumes by plethysmography (based on pre-bronchodilator values): -RV: Increased @ 201% -TLC: Increased @ 130% Diffusion capacity: -DLCO: Moderate reduction @ 58% when corrected for Hb 15.5g/dL Flow-volume loop: -Moderate obstructive pattern Impressions: -Spirometry suggests moderate obstruction without a positive bronchodilator response. An elevated RV and TLC suggest air trapping and hyperinflation respectively. There is a moderately reduced diffusion capacity. Overall study is compatible with COPD/emphysema. Clinical correlation required. Electronically Signed On 05-12-2023 17:23:02 EST by Sukhjinder Nava Dictated By: Sukhjinder Nava D.O. Signed By: 05/12/23 1723 DD/ 1306 TD/TT: Cylinder Machine Operator Pulp Drier: MATA [place] PULMONARY FUNCTION TESTOrdered By: Radiologist Radiology on 84-27-5071GUFR eeGeo Work Phone: RT PULMONARY FUNCTION TESTon 19-58-4945Qasukpmaa Study observation (narrative)[facility] Colonoscopyon 06-89-6614Qxfgsrp [id number]#1.00CD:127[facility] HospitalReminderson 10-95-7478Vorbsnphi From: Donna Reyna LPN To: GSN - Clinical; Sent: 08/22/2022 14:31:26 EDT Show up: 07/23/2032 07:00:00 EST Subject: colonoscopy recall Due Date/Time: 08/21/2032 07:00:00 EDT Reminder/Recall Patient is due for screening colonoscopy 08/21/2032.[facility] HospitalPre-Certification Formon 85-95-9426Pqa-Certification Form [id number]#1.00CD:127[facility] HospitalAmbulatory Visit Summaryon 54-54-7031Vyijocgndu Visit Summary DEXTER SUMMERS :1975 Visit Date:06/21/2022 Ambulatory Visit Instructions Your Diagnosis Screening for malignant neoplasm of colon Tobacco use Your Care Team Attending Physician - SHAUNNA GOLDSTEIN, Meagan Scales Primary Care Physician - RONNY GOLDSTEIN, SARMAD This Is Your Medications List polyethylene glycol [...] electrolytes (NuLYTELY Avila oral powder for reconstitution) 240Milliliter By Mouth Every day as directed Pickup at [facility] #[id number] Unchanged aripiprazole (aripiprazole 5 mg Tab) 1 [...] By Mouth 4 times a day Contact prescribingphysician if questions or concerns Unchanged meloxicam (meloxicam 15 mg oral tablet) 1 Tablets By Mouth Every day Contact prescribing physician if questions or concerns Unchanged tizanidine (tiZANidine 4 mg Tab) 1 Tablets By Mouth 3 times a day Contact prescribing physician if questions or concerns Unchanged valacyclovir (Valtrex 1 g Tab) 1 Tablets By Mouth Every day Contact prescribing physicianif questions or concerns Pharmacy Information [facility] #[id number]: [address] [place], [place] [id number] [phone] Allergies No Known Allergies No Known Medication Allergies Problems Ongoing - Any problem that you are currently receiving treatment for. BMI 21.0-21.9, adult Chronic left-sided low back pain Frequent loose stools KATHY (generalized anxiety disorder) Genital herpes Irritable bowel syndrome with diarrhea Lower abdominal pain Major depressive disorder Screening for malignant neoplasm of colon Tobacco use Tobacco user Vitamin D deficiency [facility] HospitalConsent for Procedure/Surgeryon 48-34-2747Mggjgrm for Procedure/Surgery [id number]#1.00CD:127[facility] HospitalConsent for Procedure/Surgeryon 85-80-0258Fcgrvrp for Procedure/Surgery [id number]#1.00CD:127[facility] HospitalGeneral Surgery Office/Clinic Noteon 05-76-7577Jbfvuxo Surgery Office/Clinic NoteChief Complaint update H&P for colonoscopy HPI Staff Presents to update H&P for planned colonoscopy. Last evaluation 03/29 with complaint of loose stools and abdominal pain, these symptoms have since resolved. Denies rectal pain or bleeding. Denies nausea or vomiting. No unexplained weight loss. Never had colonoscopy in the past. No known family hi story of colon cancer. History of Present Illness 46 yo male initially seen 03/2022 for frequent loose stools; these symptoms have resolved, believesit was due to a medication; no blood [...] swallowing difficulties, no hearing loss, no ear infection(s),no nose bleeds. Cardiovascular: normal blood pressure, no [...] Daily, 480 mL, Refill(s) 0, as directed, [facility] #[id number], 187.9, cm, 06/21/22 13:47:00 EST, Height/Length Dosing, [...] Vitamin D3 2000 intl (more content not included)...[facility] HospitalComment on above:Result Comment: Electronically Signed By: SHAUNNA GOLDSTEIN, Meagan Michele\Date and Time Signed: 06/21/22 14:27 ESTPre-Certification Formon 03-52-0303Ecy-Certification Form [id number]#1.00CD:[address] [place], [place] [address]Facesheeton 17-57-6748Zheynnitf [id number]#1.00CD:[address] [place], [place] [address]Consent for Procedure/Surgeryon 85-10-9856Akjxhcu for Procedure/Surgery [id number]#1.00CD:[address] [place], [place] [address]Physician Referralon 70-02-6104Hujfvqnie Referral [id number]#1.00CD:[address] [place], [place] [address] Vital Signs Date TimeVital SignValuePerforming BlwydtcfvFslimmlx54-30-5732 10:24-0400Body kjaqbq619.4 cmCecily Larose APRN-PHYSICAL INTEGRATION PRACTITIONER Work Phone: [facility]03-31-2025 10:24-0400Body mass index (BMI) [Ratio]19.79 kg/x6GmevidyCecily Larose COMPOUNDER-PHYSICAL INTEGRATION PRACTITIONER Work Phone: [facility]03-31-2025 10:24-0400Body .04 kgCecily Larose COMPOUNDER-PHYSICAL INTEGRATION PRACTITIONER Work Phone: [facility]03-31-2025 10:24-0400Diastolic blood izfxcmsh37 mm[Hg]Cecily Larose COMPOUNDER-PHYSICAL INTEGRATION PRACTITIONER Work Phone: [facility]03-31-2025 10:24-0400Heart rate 74 /minCecily Larose COMPOUNDER-PHYSICAL INTEGRATION PRACTITIONER Work Phone: [facility]03-31-2025 10:24-0400Systolic blood yrnvyjkx345 mm[Hg]Cecily Larose COMPOUNDER-PHYSICAL INTEGRATION PRACTITIONER Work Phone: [facility]03-12-2025 14:19-0400Body zinuli417.4 cmSarmad Jefferson MD Work Phone: [facility]HealthQmmforpige60-03-7550 14:19-0400Body mass index (BMI) [Ratio]19.79 kg/m2Sarmad Jefferson MD Work Phone: [facility]HealthFzgdztvgvi33-65-4825 14:19-0400Body temperature 97.11 [degF]Sarmad Jefferson MD Work Phone: [facility]HealthNkkodwsygb17-78-2397 14:19-0400Body .04 kgSarmad Jefferson MD Work Phone: [facility]HealthZxughjjrob80-46-4356 14:19-0400Diastolic blood eyvtsvce20 mm[Hg]Sarmad Jefferson MD Work Phone: [facility]HealthMxwbvifyvf28-40-6943 14:19-0400Heart rate74 /min Sarmad Jefferson MD Work Phone: [facility]HealthCvyirbnrwo42-81-7645 14:19-0400Respiratory rate18 /minSarmad Jefferson MD Work Phone: [facility]HealthToafmegfce82-51-6828 14:19-2966AhK8% (BldA) [Mass fraction]97 %Sarmad Jefferson MD Work Phone: [facility]HealthXssyljwdss22-61-9764 14:19-0400Systolic blood jvfxykut598 mm[Hg]Sarmad Jefferson MD Work Phone: [facility]HealthVnedpouuyw08-86-2388 09:37-0500Body pyxdcy637.4 cmJerry Mei MD Work Phone: [facility]03-04-2025 09:37-0500Body mass index (BMI) [Ratio]19.92 kg/h0DyvvmjnfwauJerry Mei MD Work Phone: [facility]03-04-2025 09:37-0500Body ecuwpr06.49 kgJerry Mei MD Work Phone: [facility]03-04-2025 09:37-0500Diastolic blood mm[Hg]Jerry Mei MD Work Phone: [facility]03-04-2025 09:37-0500Systolic blood osnuxyuq896 mm[Hg]Jerry Mei MD Work Phone: [facility]01-30-2025 11:21-0500Body iwxdsh133.4 cmCecily ZAMORA Work Phone: [facility]01-30-2025 11:21-0500Body mass index (BMI) [Ratio]19.63 kg/j6GwrxtmyCecily ZAMORA Work Phone: [facility]01-30-2025 11:21-0500Body dczgqo56.5 kgCecily Larose COMPOUNDER-PHYSICAL INTEGRATION PRACTITIONER Work Phone: [facility]01-30-2025 11:21-0500Diastolic blood siqftcij68 mm[Hg]Cecily Larose COMPOUNDER-PHYSICAL INTEGRATION PRACTITIONER Work Phone: [facility]01-30-2025 11:21-0500Heart rate 82 /minCecily Larose APRN-PHYSICAL INTEGRATION PRACTITIONER Work Phone: [facility]01-30-2025 11:21-0500Systolic blood mehcripv124 mm[Hg]Cecily Larose COMPOUNDER-PHYSICAL INTEGRATION PRACTITIONER Work Phone: [facility]01-10-2025 09:47-0500Body ioisjt444.4 cmSarmad Jefferson MD Work Phone: [facility]HealthXfbqakdhit96-16-2672 09:47-0500Body mass index (BMI) [Ratio]19.53 kg/m2Sarmad Jefferson MD Work Phone: [facility]HealthFbivblqctt33-29-2950 09:47-0500Body temperature 97.11 [degF]Sarmad Jefferson MD Work Phone: [facility]HealthZqidrhwzsc14-09-2321 09:47-0500Body .13 kgSarmad Jefferson MD Work Phone: [facility]HealthNmilrcwfpp02-23-4034 09:47-0500Diastolic blood bdxachxl10 mm[Hg]Sarmad Jefferson MD Work Phone: [facility]HealthHhsnxmcxsd81-46-8256 09:47-0500Heart rate92 /min Sarmad Jefferson MD Work Phone: [facility]HealthPfpazfnrbb00-44-0675 09:47-0500Respiratory rate18 /minSarmad Jefferson MD Work Phone: [facility]HealthNloxvqokcx00-54-8297 09:47-1168HsF1% (BldA) [Mass fraction]98 %Sarmad Jefferson MD Work Phone: [phone] [place], [place] [address]Pqeiedlqyc85-38-2447 09:47-0500Systolic blood eejapjpd430 mm[Hg]Sarmad Jefferson MD Work Phone: [facility]HealthOndnpkaxru65-23-8097 10:10-0400Body cnhobd580.9 cmSarmad Jefferson MD Work Phone: [facility]HealthLkqchzglma64-79-2087 10:10-0400Body mass index (BMI) [Ratio]20.48 kg/m2Sarmad Jefferson MD Work Phone: [facility]HealthXrzwdinghl63-80-8980 10:10-0400Body temperature 97.5 [degF]Sarmad Jefferson MD Work Phone: [phone] [place], [place] [address]Rxqnobxnld67-82-5006 10:10-0400Body tgipzx08.49 kgSarmad Jefferson MD Work Phone: [facility]HealthRriiumgeyz67-39-1651 10:10-0400Diastolic blood gzqjfxro70 mm[Hg]Sarmad Jefferson MD Work Phone: [facility]HealthMpresvkhrt42-64-4976 10:10-0400Heart rate77 /min Sarmad Jefferson MD Work Phone: [facility]HealthUnuwesllic56-73-1722 10:10-0400Respiratory rate16 /minSarmad Jefferson MD Work Phone: [facility]HealthXklqrvacsk23-18-3667 10:10-3058GkD0% (BldA) [Mass fraction]98 %Sarmad Jefferson MD Work Phone: [facility]HealthMzgadtrdlm08-16-5245 10:10-0400Systolic blood apidquzu703 mm[Hg]Sarmad Jefferson MD Work Phone: [facility]HealthVqycdmdglp80-60-0541 09:00-0400Body kmhbul65.22 kgMD Sarmad Jefferson Work Phone: [facility]06-23-2024 20:43-0400 Body yoptgcqnaca49.1 [degF]MD Sarmad Jefferson Work Phone: [phone] [place], [place] [address]706-23-2024 20:43-0400 Diastolic blood vlqwvgua95 mm[Hg]MD Sarmad Jefferson Work Phone: 1(745)204-[address] [place], [place] [address]706-23-2024 20:43-0400 Heart rate56 /minMD Sarmad Jefferson Work Phone: [phone])[address]06-23-2024 20:43-0400 Respiratory rate16 /minMD Sarmad Jefferson Work Phone: [phone]06-23-2024 20:43-0400 SaO2% (BldA) [Mass fraction]96 %MD Sarmad Jefferson Work Phone: [phone]06-23-2024 20:43-0400 Systolic blood sclnhigp359 mm[Hg]MD Sarmad Jefferson Work Phone: [phone]06-20-2024 14:03-0400 Body ehxhhw190.88 cmMD Sarmad Jefferson Work Phone: [phone])[address]06-19-2024 20:01-0400 Diastolic blood igrsldhw39 mm[Hg]MD Sarmad Jefferson Work Phone: [phone])[address]06-19-2024 20:01-0400 Heart rate80 /minMD Sarmad Jefferson Work Phone: [phone])[address]06-19-2024 20:01-0400 Respiratory rate18 /minMD Sarmad Jefferson Work Phone: [phone])22860 [address]06-19-2024 20:01-0400 SaO2% (BldA) [Mass fraction]98 %MD Sarmad Jefferson Work Phone: [phone])[address]360 [address]06-19-2024 20:01-0400 Systolic blood uxhdffht459 mm[Hg]MD Sarmad Jefferson Work Phone: [phone])[address]06-19-2024 16:55-0400 Body lpowvr337.88 cmMD Sarmad Jefferson Work Phone: [facility]06-19-2024 16:55-0400 Body mckbytrpsxy75.6 [degF]MD Sarmad Jefferson Work Phone: [facility]06-19-2024 16:55-0400 Body vjgowx28.3 kgMD Sarmad Jefferson Work Phone: [facility]01-27-2023 13:43-0500 Blood Pressure LocationMichael NILL [facility] Gdmotkib37-08-1378 13:43-0500Diastolic blood jidymdsu95 mm[Hg]Meagan NILL [facility] Surgery Frnifnoc75-52-0411 13:43-0500Heart rate 70 /minMichael NILL [facility] Surgery Tltjmcpo16-85-0379 13:43-0500 Respiratory rate16 /minMichael NILL [facility] Vcsmewax67-19-7151 13:43-0500Systolic blood mbdrfleo200 mm[Hg]Meagan NILL [facility] Utootdex02-56-9028 14:47-0400Blood Pressure LocationMichael NILL [facility] Surgery Crkshpxv80-63-5390 14:47-0400Diastolic blood aycxgwpb44 mm[Hg]Meagan NILL General Surgery Zjpslqwo88-64-9728 14:47-0400Heart rate 72 /minMichael NILL [facility] Lzgelbnq18-42-5618 14:47-0400 Respiratory rate16 /minMichael NILL [facility] Surgery Blgnbgvy05-65-5576 14:47-0400Systolic blood tmdglbim029 mm[Hg]Meagan NILL [facility] Surgery [place] Encounters Encounter DateEncounter TypeCare ProviderFacilityStart: 08-23-2024 End: 22-73-1898Hpehbq follow up visit related to original Tanja Larose COMPOUNDER-PHYSICAL INTEGRATION PRACTITIONER Work Phone: [facility] Physicians General SurgeryComment on above: Status post laparoscopic cholecystectomy (Primary Dx)Start: 08-23-2024 End: 92-68-0693jnlkyehbfrGPKPHFF A CARROLLSalem [facility] Hospital [facility] Start: 08-11-2024 End: 35-40-1455Zmlyndlwq encounterErin Riki [facility] SurgeryStart: 08-09-2024 End: 36-18-7453Milxvszbbz and management of inpatientDANERISSA Herrera [facility] Hospitaltart: 08-09-2024 End: 24-52-7642Bjbjxnvaee and management of inpatientChesapeake Regional Medical Centertart: 08-06-2024 End: 00-99-0263Gvnerawca encounterLaherminia Zavala [facility] SurgeryStart: 08-05-2024 End: 25-03-7002dflcktcjapCDGFGRGZOIFKaiser Foundation Hospitaltart: 08-04-2024 End: 83-77-0743Plukmp outpatient visit 25 minutesSarmad Jefferson MD Work Phone: [facility] FMComment on above:Encounter for preoperative assessment (Primary Dx); Centrilobular emphysema (CMS/HCC); Calculus of gallbladder without cholecystitis without obstructionStart: 08-04-2024 End: 09-46-0972rqpqpygrmpNYSO NADERERNot AvailableStart: 08-04-2024 End: 95-26-6148Vcseod flowsVelma Jefferson MD Work Phone: [facility] FMStart: 08-04-2024 End: 47-24-1267Svkdbp Victor M Jefferson MD Work Phone: [facility] FMStart: 08-04-2024 End: 42-47-9833Nsivtrhpjqid stateSarmad Jefferson MD Work Phone: [facility] Work Phone: Start: 07-28-2024 End: 45-04-5529cqbzdsbmgpLUOHYCGTWSHMUSC Health [facility] HospitalStart: 07-28-2024 End: 22-49-4467Rsifibk encounter procedurePm Pre-Admission Testing [address] [place] [address] - Pre AdmitStart: 07-27-2024 End: 70-29-8623Kxyjpd outpatient visit 25 minutesJerry Mei MD Work Phone: [facility] General SurgeryComment on above: Biliary colic (Primary Dx)Start: 07-27-2024 End: 69-73-1863ayvavrsfekMUXHXIFXOOPPeaceHealth St. [facility] P[facility] Start: 05-53-8325wcudnybndmHBCEMayo Clinic [facility] Ambulatory PPGStart: 07-23-2024 End: 55-73-5355wfmmiaekzqQRWA A NADERERFacility:[facility] HospitalStart: 07-20-2024 End: 00-94-5576Zprjnkpif encounterLauren Venget [facility] Physicians General SurgeryStart: 07-09-2024 End: 25-51-6162Tmssulxyvw and management of inpatientReston Hospital Center HospitalStart: 06-25-2024 End: 19-58-9025iqclawnbmuWZQUBrown Memorial Hospitaltart: 06-24-2024 End: 45-72-9780Bgsxzc outpatient new 45 minutesElsamary [facility] Morgan Larose COMPOUNDER-PHYSICAL INTEGRATION PRACTITIONER Work Phone: [facility] Physicians General SurgeryComment on above: Unintentional weight loss (Primary Dx); Lower abdominal pain; Epigastric painStart: 06-24-2024 End: 10-55-6526kqeapdqfhkOMYEVHU Morgan [facility]ASal[facility] Start: 06-11-2024 End: 85-33-0343jrcxwisnsuTYBA A NADERERFacility:[facility] HospitalStart: 06-04-2024 End: 10-70-7285Uwgeny flowsheetMarc Ronny GOLDSTEIN Work Phone: noms CWM FMStart: 06-04-2024 End: 48-33-1777Jlmzqe Victor M Jefferson MD Work Phone: noms CWM FMStart: 06-04-2024 End: 59-87-0209Ruubre outpatient visit 25 minutesSarmad Jefferson MD Work Phone: noms CWM FMComment on above:Major depressive disorder, recurrent, moderate (CMS/HCC) (Primary Dx); Generalized anxiety disorder (CMS/HCC); COPD, moderate (CMS/HCC); Gastroesophageal reflux disease without esophagitis; Tobacco use disorder, continuous; Fatigue, unspecified typeStart: 06-04-2024 End: 35-76-2863ypeposhjyrTOFC NADERERNot AvailableStart: 05-05-2024 End: 97-80-5138nztzbsiyneZWQL A NADERERFacility:[facility] Hospitaltart: 01-23-2024 End: 38-40-9021Lmezmi Victor M Jefferson MD Work Phone: noms CWM FMStart: 01-23-2024 End: 90-38-6350Xnqgee Victor M Jefferson MD Work Phone: noms CWM FMStart: 01-23-2024 End: 57-44-6056cpjralhljdSVGL NADERERNot AvailableStart: 01-23-2024 End: 15-70-2154Voucqc outpatient visit 25 minutesSarmad Jefferson MD Work Phone: noms CWM FMComment on above:Major depressive disorder, recurrent, moderate (HCC) (CMS/HCC) (Primary Dx); Generalized anxiety disorder (CMS/HCC); Gastroesophageal reflux disease without esophagitis; COPD, moderate (CMS/HCC); Tobacco use disorder, continuous; GastroenteritisStart: 12-18-2023 End: 72-81-5610iygfuqocwfFDAP NADERERNot AvailableStart: 22-69-3848whocfuviwrelizabeth Clevelandcility:[facility] Hospitaltart: 11-18-2023 End: 31-52-8667ybtxpsahcvERGQ NADERERNot AvailableStart: 21-94-3543Ptv-patient / Non-visitMD Sarmad Jefferson Work Phone: [facility] Work Phone: Start: 11-12-2023 End: 97-17-1380Jwcoqextio and management of inpatientMD Sarmad Jefferson Work Phone: [facility] Work Phone: Start: 09-12-2023 End: 89-20-2074rmxxvwxnwjYJVN NADERERNot AvailableStart: 05-09-2023 End: 02-69-0484Gewbouryx Result EncounterSarmad Jefferson MD Work Phone: noms External Department UnsolicitedStart: 05-09-2023 End: 53-40-0518Udgmirbpg Result EncounterSarmad Jefferson MD Work Phone: noms External Department UnsolicitedStart: 08-21-2022 End: 68-73-6227ogjeysexiwJC MEAGAN NILL .Facility:Z6Ptekn: 06-21-2022 End: 57-60-9274babudplpcaRnpabze R NILLFacility:[facility] CenterevueStart: 06-21-2022 End: 54-38-9441Orbgvvd encounter procedureMichael R NILL General Surgery Nill/[facility] [place] Start: 38-57-0288jpupbqfekgWN MEAGAN NILL .Facility:H1 Start: 77-01-7718wlmzlclxleSB MEAGAN NILL .Facility:H1Jxchc: 03-29-2022 End: 45-53-7085nkroywthxuVcxurol R NILLFacility: [place]ieevueStart: 03-29-2022 End: 09-30-5849Yqqyvpz encounter procedureMichael R NILL General Surgery Nill/[facility] [place] Start: 21-27-4867ryqbmvbeaiYjysbap NILLFacility:[facility] [place] Procedures DateProcedureProcedure DetailPerforming ClinicianStart: 37-67-3219Rzbiyuuadrn Leeann Zavala CMAStart: 23-62-9068SL PULMONARY FUNCTION TESTSarmad Jefferson MD Work Phone: Start: 47-81-5679FshpunlwdvsHhry Naderer MD Work Phone: History of cholecystectomyStatus post laparoscopic cholecystectomyJessica A Larose COMPOUNDER-PHYSICAL INTEGRATION PRACTITIONER Work Phone: Left hydrocelectomyMichael NILL Strabismus surgeryMichael NILL TonsillectomyMichael NILL Plan of Treatment DateCare ActivityDetailAuthorStart: 39-64-2309Zqlvfwfmf for malignant neoplasm of colonProMedica Samaritan Hospital SystemStart: 79-97-9106Rfbmkjlvz for malignant neoplasm of colonNOMS HealthcareStart: 16-53-1774Fekgu BMI ScreeningAdult BMI Screening [facility] SystemStart: 82-70-9151Ltckdhi ScreeningTobacco Screening [facility] SystemStart: 74-58-8134Brjxr BMI ScreeningAdult BMI Screening [facility] SystemStart: 91-48-2972Muztppf ScreeningTobacco Screening [facility] SystemStart: 31-47-8840Webfaos ScreeningTobacco Screening [facility] SystemStart: 24-51-9974Gejyi BMI ScreeningAdult BMI Screening [facility] SystemStart: 31-31-2896Loymt BMI ScreeningAdult BMI Screening [facility] SystemStart: 26-32-0346Dfbhffv ScreeningTobacco Screening [facility] SystemStart: 35-60-8021Mgxud BMI ScreeningAdult BMI Screening [facility] SystemStart: 35-44-5115Waojotp ScreeningTobacco Screening [facility] SystemStart: 94-80-9463Opthfngrt vaccinationInfluenza Vaccine (#1)[facility] HealthcareStart: 12-03-2024 End: 08-00-8356Fvuoear encounter kakthvgja75/11/2025 10:30 AM EDT Office Visit [facility] [address] [place] [address] Sarmad Jefferson MD [address] [place] [address] [facility] CW FMStart: 08-23-2024 End: 36-36-0178Qyfersd encounter ktwspmkoy97/31/2025 10:30 AM EDT Office Visit [facility] [address] [facility] [place] [address] Cecily Larose, COMPOUNDER-[facility] [address] [place], [place] [id number] [facility] SurgeryStart: 08-09-2024 End: 41-53-1728Pbrigbaxt to same day surgery foeisp9108/09/2024 10:30 AM EDT - 08/09/2024 12:00 PM EDT Surgery [facility] Surgery [address] [place] [address] Jerry Mei MD [address] [place] [address] DAVINCI CHOLECYSTECTOMY [22922 (CPT )][facility] Surgery Comment on above:DAVINCI CHOLECYSTECTOMY [14685 (CPT )]Start: 08-09-2024 End: 00-83-0906Vpluvtsyzev surg cholecystectomyDAVINCI CHOLECYSTECTOMY biliary colic 08/09/2024 10:30 AM EDTFREMONT SURGERYStart: 15-80-9408Fmvzlgnbug hospital visit by uhknxpyxv71/17/2025 10:30 AM EDT Hospital Encounter [facility] Surgery [address] [place] [address] Jerry Mei MD [address] [place] [address] [facility] - SurgeryStart: 08-05-2024 End: 30-44-9063Stvftlp encounter iwykufpeg51/13/2025 10:30 AM EDT Appointment [facility] - CT Imaging [address] [place] [address] Jerry Mei MD [address] [place] [address] [facility] - CT ImagingStart: 08-04-2024 End: 45-70-5762Yilccir encounter keqivndhu61/12/2025 2:15 PM EDT Office Visit [facility] [address] [place] [address] Sarmad Jefferson MD [address] [place] [address] ArrivedNOMS CWM FMComment on above:ArrivedStart: 07-27-2024 End: 89-44-9843IF Abdomen and Pelvis W contrast IVCT abdomen and pelvis with contrast Imaging Routine Biliary colic Expected: 07/27/2024, Expires: 07/27/2025 [facility]:Expected: 07/27/2024, Expires: 07/27/2025Start: 07-09-2024 End: 76-52-5945Jkhxvogby to same day surgery iaolst4307/09/2024 11:30 AM EST - 07/09/2024 12:15 PM EST Surgery [facility] - Surgery [address] [place] [address] Jerry Mei MD [address] [place] [address] ESOPHAGOGASTRODUODENOSCOPY DIAGNOSTIC [18554 (CPT )][facility] SurgeryComment on above:ESOPHAGOGASTRODUODENOSCOPY DIAGNOSTIC [58432 (CPT )]Start: 07-09-2024 End: 55-76-2645Ohwyozcxhsb flx dx w/collj spec when pfrmdCOLONOSCOPY DIAGNOSTIC / SCREENING unintentional weight loss 07/09/2024 11:30 AM [facility]FR[facility] Start: 07-09-2024 End: 59-37-1324Bpqqehqlyugpstbskzdoeprfru transoral diagnostic ESOPHAGOGASTRODUODENOSCOPY DIAGNOSTIC unintentional weight loss 07/09/2024 11:30 AM [facility] SURGERYStart: 85-16-4742Bcwdbvnkaw hospital visit by physician 07/09/2024 11:30 AM EST Hospital Encounter [facility] - Surgery [address] [place] [address] Jerry Mei MD [address] [facility] [place] [address] [facility] - SurgeryStart: 07-01-2024 End: 11-95-4112pjvwfnslss01/06/2025 2:10 PM EST Support Visit [facility] - Pre Admit [address] [place] [address] [facility] - Pre AdmitStart: 06-25-2024 End: 57-18-7473Zuvlewf encounter gowasejpj67/31/2025 3:30 PM EST Appointment [facility] - [facility] Imaging [address] [place] [address] UobBijxuxK[facility]tering [facility] - CT ImagingStart: 06-24-2024 End: 90-53-0753UV Abdomen limitedUltrasound abdomen limited Imaging Routine Epigastric pain Expected: 06/24/2024, Expires: 06/24/2025[facility] Comment on above:Expected: 06/24/2024, Expires: 06/24/2025Start: 06-04-2024 End: 16-89-1822Ctkwqvqjzdwd [Mass/volume] in Serum or PlasmaTestosterone Lab Routine Fatigue, unspecified type Expected: 06/04/2024 (Approximate), Expires: 06/04/2025[facility] Work Phone: Comment on above:Expected: 06/04/2024 (Approximate), Expires: 06/04/2025Start: 04-16-2024 End: 75-20-8307Wqeffgl encounter /22/2024 10:15 AM EST Office Visit [facility] [address] [place] [address] Sarmad Jefferson MD [address] [place] [address] [facility] MICHELLE FMStart: 27-05-7722GDZSL-19 Vaccine ( season)COVID-19 Vaccine ( season)[facility]otart: 27-80-8035Sljqaxzir vaccinationNOOH HealthcareStart: 32-40-3550AlwobftpwL[facility] Start: 12-48-9103Mmmncubd admissionSelect Medical OhioHealth Rehabilitation Hospitaltart: 46-68-1141VKjR,Tdap and Td Vaccines (1 - Tdap)DTaP,Tdap and Td Vaccines (1 - Tdap)[facility] SystemStart: 53-82-0843Ublohzbcsw ScreeningDepression ScreeningSelect [facility] SystemStart: 94-38-5094Xasgiaagx for malignant neoplasm of colonNOOH HealthcareStart: 48-76-0375Jkkjkqv CounselingTobacco CounselingSelect Medical Specialty [facility] System End: 47-04-1780XAV W Auto Differential panel - BloodCBC auto differential Lab Routine Biliary colic 1 Occurrences starting 07/27/2024 until 07/27/2025 [facility]Comment on above:1 Occurrences starting 07/27/2024 until 07/27/2025 End: 88-42-8283Ogreavobnignk metabolic 2000 panel - Serum or PlasmaComprehensive metabolic panel Lab Routine Biliary colic 1 Occurrences starting 07/27/2024 until 07/27/2025[facility] SystemComment on above:1 Occurrences starting 07/27/2024 until 07/27/2025 End: 85-63-1162NMQ 12 leadECG 12 lead ECG Routine Biliary colic 1 Occurrences starting 07/27/2024 until 07/27/2025[facility] SystemComment on above:1 Occurrences starting 07/27/2024 until 07/27/2025 End: 58-78-2408XTL / ColonoscopyEGD / Colonoscopy GI Routine Unintentional weight loss Lower abdominal pain 1 Occurrences starting 06/24/2024 until 06/24/2025[facility] Work Phone: Comment on above:1 Occurrences starting 06/24/2024 until 06/24/2025Patient EducationDepression, Adult (DC) [facility] [place] Instructions Know your [facility] Work Phone: Patient [facility] Work Phone: End: 43-22-1994Uigvihda Procedure / SurgeryUnlisted Procedure / Surgery Procedures Routine Biliary colic 1 Occurrences starting 07/27/2024 until 07/27/2025[facility] Work Phone: Comment on above:1 Occurrences starting 07/27/2024 until 07/27/2025 Immunizations Immunization DateImmunizationNotesCare YhrrgjknRaxjpejl78-90-0966lfnqsmhnz virus vaccine, unspecified formulationMichael NILL [facility] Cmflljmz35-28-9744DMVI-MuU-9 (COVID-19) mRNAMUL.ORD!b31243Fgmpktg NILL [facility] Jawtcxff64-87-2925TRRW-VkW-1 (COVID-19) mRNA-4010 vaccineMichael NILL [facility] Ayrrqxnu45-24-9493PYON-QvB-5 (COVID-19) mRNA-1273 vaccineMichael NILL General Surgery [place]Comment on above:Result Comment: 2022-06-21: RTD5159-06-2180GYIH-WuB-6 (COVID-19) mRNA-3083 vaccine Meagan MAZA General Surgery BellevueComment on above:Result Comment: 2022-06-21: [id number] Payers DatePayer CategoryPayerPolicy [id number]-qyo [id number] Cross Blue ShieldBCBS Member Subscriber Plan / Payer (Effective 2018-Present) Name: Dexter Summers Relation to Subscriber: Self Name: Dexter Summers PayerID: Not on file Type: Not on file Address: [address] [place] [id number] Healthcare Facility Managed Care - OtherANTHEM Member Subscriber Plan / Payer (Effective 2018- Present) Name: Dexter Summers Relation to Subscriber: Self Name: Dexter Summers Payer ID: [id number] (NAIC) Type: Not on file Address: [address] [place] [id number] BCBS [id number] 2018-Present [phone] [address] [place] [id number] [id number] 2..1.732635.3.57[id number] 2.0.1.838269.3.579.2.20204-76-9244Fxlwjwq4815483 2..1.236499.3.579.2.05656-74-1454Rvxfqjp16559074 2..1.091944.3.579.2.76619-93-9769Nbwchnd28509049 2..1.165613.3.579.2.90679-01-7016Oopdmll56869504 2..1.939153.3.579.2.20130-35-7392Zlrafxm75098356 2..1.545577.3.579.2.88724-82-2380Hxtvero68303087 2..1.949293.3.579.2.84382-64-1416Qywkous58160209 2..1.664060.3.579.2.56108-46-3792Etnqufk8703543 2..1.389224.3.579.2.901438-95-4348Scetmvw3674947 2..1.815255.3.579.2.514279-23-9422Wqoasgh1949783 2..1.940514.3.579.2.055043-22-2645Xtazxut8704140 2..1.287295.3.579.2.746805-61-8038Adgvsxt8837171 2..1.471371.3.579.2.889246-49-7018Bmelbck9553647 2.16.840.1.566507.3.579.2.230558-03-8289Gkcbxni6503897 2.0.1.265213.3.579.2.642545-50-6706Jdmtrax0818883 2.840.1.863536.3.579.2.760059-20-4551Aezgovq4911731 2.0.1.195872.3.579.2.440349-00-0481Scxswdt4181621 2.0.1.083709.3.579.2.094967-49-3671Uainqya2920985 2..1.146715.3.579.2.881032-28-0086Ozatorg1476081 2..1.367678.3.579.2.559273-15-6403Oiijolu162264243 2..1.260194.3.579.2.076006-31-4606Qaolmsz514660506 2..1.423816.3.579.2.734465-28-2128Uciufco221578956 2..1.660985.3.579.2.563063-57-8131Aiphzuv422529443 2..1.537907.3.579.2.974588-04-6278Qfzdcjw292578345 2..1.483029.3.579.2.875316-53-3995Prfupfr096157900 2..1.527048.3.579.2.831664-30-3850Cjigiag197844601 2..1.599573.3.579.2.098526-76-0634Ovoumzw326988352 2..1.034939.3.579.2.655926-23-4028Hcmcucf193002365 2..840.1.310416.3.579.2.340488-67-4240Oqmzlnz553008214 2..840.1.704234.3.579.2.449932-62-2237Lvxrbqr990825006 2..840.1.409313.3.579.2.243208-27-9460Lwutgei999203241 2..840.1.748681.3.579.2.745261-70-8059Smbhztf852643054 2..840.1.734715.3.579.2.798764-68-3977OsccerzOMZ658F81236Kxhtqip54028689 2.16.840.1.222700.3.579.2.793Syzcpuk26097408 2.840.1.533818.3.579.2.531 Social History DateTypeDetailFacilityStart: 03-29-2022 End: 07-54-5358Zcrzbxu smoking statusHeavy tobacco smoker (finding)General Surgery [facility]Start: 85-86-9453Yqknjqt smoking statusFormer smokeless tobacco user, quit more than 30 days agoGeneral Surgery [place]vueStart: 01-23-2024 End: 18-20-4662Igy Assigned At [facility] CenterStart: 11-12-2023 End: 40-63-6315Gczhbml smoking status NHISSmoker (finding)[facility] CenterStart: 89-66-6422Bdt Assigned At [facility] CenterStart: 07-09-2004 End: 87-92-0767Oiruyxg smoking status NHISSmokes tobacco dailyNOMS Healthcare Start: 04-37-0724Rpccbrg of tobacco useCigarette SmokerNOMS HealthcareHistory of tobacco usePassive smokerNOMS HealthcareStart: 11-12-2023 End: 26-44-7378Bzftzbj use and exposureSmokeless tobacco non-userNOMS Healthcare Start: 01-23-2024 End: 48-92-3024Jxwakhydi beverage intakeEx-drinker (finding)[facility] Start: 01-23-2024 End: 23-45-8383Awrwltb of Social functionNOOH HealthcareStart: 22-51-1829Mkw assigned at birthNot on fileRIVERTON HOSPITAL HealthcareAre you now , , , , never or living with a partner?MarriedRIVERTON HOSPITAL HealthcareHow often to you have a drink containing alcohol?NeverRIVERTON HOSPITAL Healthcare Do you feel stress - tense, restless, nervous, or anxious, or unable to sleep at night because yourmind is troubled all the time - these days [OSQ]Not at all [facility] HealthcareStart: 55-56-4469GdlGsbu (finding)[facility] SystemStart: 54-72-2026Tmjhtw identityIdentifies as male gender (finding)[facility] SystemStart: 44-25-5252Kfuvao orientationHeterosexual (finding)[facility] SystemStart: 90-47-2847Qesgrtx CommentTrying to quitSelect Medical Specialty [facility] System Tobacco smoking status NHISTobacco smoking consumption unknownRIVERTON HOSPITAL Healthcare Goals DatePatient GoalDesired Activity/State Functional Status VpeoCjqenxbycoHirovvLjjitgww84-44-5875Dxwkg score [AUDIT-C]0 06/03/2024 6:07 PM EST Mychart, GenericNOPhelps HealthSodthcstbq22-35-7447Fqv often do you have a drink containing alcohol?Never 06/03/2024 6:07 PM EST Mychart, Generic NeverNOPhelps HealthUiwrbifxhh02-89-9848Csuhampwjg statusPatient does not drink 06/03/2024 6:07 PM EST Mychart, Generic Patient does not drinkNOPhelps HealthVbdxcbcilc22-97-5782Udr often do you have 6 or more drinks on 1 occasion?Never 06/03/2024 6:07 PM EST Mychart, Generic NeverNOPhelps HealthXrtaondppc11-43-6465Vgfdrhfjkt statusPatient at Baseline [facility] Work Phone: [phone]zl difficult have these problems made it for you to do your work, take care of things at home, or get along with other people?Extremely difficult 11/12/2023 1:42 PM EDT Farhan PrashanthERNA Extremely difficultCoxHealthQhhvmyhren09-42-1893Tkscjvt Health Questionnaire 2 item (PHQ-2) [Reported]CoxHealthJizkkfclvc11-71-2756Eanigavxgz StatusN/AGeneral Surgery [place] 32-25-3679Zfxzykqpwx StatusN/AGeneral Surgery [facility] Mental Status FeibFospeztlofXaaqhhQmadqcyn25-33-5069Jkocjbkbw functionCognitive Status [facility] Work Phone: Clinical Notes 03-29-2022 to 08-23-2024 Note Date & YsziRdgkJhfmvvov64-99-3888 History of Present illness Narrative* SERA Han - 08/23/2024 10:30 AM EDT 49-year-old male status post robotic assisted laparoscopic cholecystectomy on 08/09/2024. He reportsminimal pain. He denies fever and chills. Appetite is okay. He is having bowel movements with a little bit of diarrhea depending on what he eats. Overall feeling much better. states he is back to normal. On exam, lap sites x4 clean, dry and intact. No signs of infection. No jaundice. Abdomen soft, nontender. Activity restrictions for another month. Follow up as needed. Final Pathologic Diagnosis Gallbladder, cholecystectomy: Chronic cholecystitis with cholelithiasis. Benign cystic duct lymph nodes. SERA Han 08/23/24 1035 documented in this encounterProvidence Hospital03-19-2025 Miscellaneous Notes* Telephone Encounter - Micaela Lyn CMA - 08/11/2024 11:33 AM EDT Dexter had surgery on 08/09/24. His spouse called & said that he pulled off all of his sterri strips while in the shower. She has no idea why he did that. I left her some steri-strips & glue in a bag, at the front sight attacher & they said they'd pick it up. documented in this encounterProvidence Hospital03-19-2025 Telephone encounter Note* Telephone Encounter - Micaela Lyn CMA - 08/11/2024 11:33 AM EDT Dexter had surgery on 08/09/24. His spouse called & said that he pulled off all of his sterri strips while in the shower. She has no idea why he did that. I left her some steri-strips & glue in a bag, at the front sight attacher & they said they'd pick it up. [facility]03-14-2025 Miscellaneous Notes* Telephone Encounter - Leeann Zavala CMA - 08/06/2024 9:09 AM EDT ----- Message from Dr. Jerry Mei MD sent at 08/06/2024 8:01 AM EDT ----- Regarding: CT Please let patient know that CT was normal except for gallstones. Thank you ----- Message ----- From: Interface - Rad Results/Orders In 1 Sent: 08/05/2024 1:58 PM EDT To: Jerry Mei MD documented in this encounterProvidence Hospital03-14-2025 Telephone encounter Note* Telephone Encounter - Leeann Zavala CMA - 08/06/2024 9:09 AM EDT ----- Message from Dr. Jerry Mei MD sent at 08/06/2024 8:01 AM EDT ----- Regarding: CT Please let patient know that CT was normal except for gallstones. Thank you ----- Message ----- From: Interface - Rad Results/Orders In 1 Sent: 08/05/2024 1:58 PM EDT To: Jerry Mei MD [facility]03-12-[facility]25 History of Present illness Narrative* Sarmad Jefferson MD - 08/04/2024 3:00 PM EDTAssociated Problem(s): Encounter for preoperative assessment Able to proceed with upcoming surgery at low risk for complications. No history of DM, HTN, or CAD.History of COPD but stable with PRN albuterol. Recently had anesthesia during endoscopy and tolerated well. * Sarmad Jefferson MD - 08/04/2024 2:59 PM EDTAssociated Problem(s): Centrilobular emphysema (CMS/HCC) Breathing stable and use albuterol PRN. Stressed need to stop smoking. * Sarmad Jefferson MD - 08/04/2024 2:59 PM EDTAssociated Problem(s): Calculus of gallbladder without cholecystitis without obstruction Follow up for surgery. * Sarmad Jefferson MD - 08/04/2024 2:15 PM EDT Images from the original note were not included. Subjective Patient ID: Dexter Summers is a 49 y.o. male who presents for Follow-up (Surgical clearance). Presents for preoperative clearance. Scheduled for robotic cholecystectomy 08/09 for gallstones and abdominal pain. Continued nausea and decreased appetite. Severe pain after eating. Patient had PAT 3/5 with recent labs that were normal. Overall feels well. No history of DM, HTN, or COPD. History ofCOPD and working on cutting back from smoking. Down to about 1 pack a week. Uses albuterol PRN and helps with SOB. Mild SOB with exertion. Prior spiriva and symbicort didn't help. CT in June without masses but showed changes of severe centrilobular emphysema. Last PFTs showed moderate COPD. Review of Systems Constitutional: Negative for fatigue. Respiratory: Positive for cough and shortness of breath. Negative for wheezing. Cardiovascular: Negative for chest pain and palpitations. Gastrointestinal: Negative for abdominal pain, diarrhea, nausea and vomiting. Genitourinary: Negative for dysuria. Objective Physical Exam Constitutional: General: He is not in acute distress. Appearance: Normal appearance. HENT: Head: Normocephalic. Right Ear: Tympanic membrane and ear canal normal. Left Ear: Tympanic membrane and ear canal normal. Eyes: Extraocular Movements: Extraocular movements intact. Pupils: Pupils are equal, round, and reactive to light. Cardiovascular: Rate and Rhythm: Normal rate and regular rhythm. Heart sounds: No murmur heard. No friction rub. No gallop. Pulmonary: Breath sounds: Normal breath sounds. No wheezing, rhonchi or rales. Abdominal: General: Bowel sounds are normal. There is no distension. Palpations: Abdomen is soft. Tenderness: There is no abdominal tenderness. There is no guarding or rebound. Musculoskeletal: Left lower leg: No edema. Neurological: Mental Status: He is alert. Assessment/Plan Problem List Items Addressed This Visit Centrilobular emphysema (CMS/HCC) Breathing stable and use albuterol PRN. Stressed need to stop smoking. Encounter for preoperative assessment - Primary Able to proceed with upcoming surgery at low risk for complications. No history of DM, HTN, or CAD.History of COPD but stable with PRN albuterol. Recently had anesthesia during endoscopy and tolerated well. Calculus of gallbladder without cholecystitis without obstruction Follow up for surgery. documented in this encounterCoxHealthWywreduwbx51-40-6599 Instructions* Patient Instructions* Lis Card RN - 07/28/2024 10:30 AM EST Preoperative Education Checklist- General Surgery date: 08/09/24 Surgery time: 1030 a.m. Arrival time: 0830 a.m. 1. Bring a photo ID and your insurance card with you the day of surgery. You will check in at the main lobby of the [facility]- registration desk is straight ahead as soon as you walk in. Tell them you are here for surgery. 2. If you have a Living Will/Durable Power of Safety Pin Assembling [employer] Operator for Health Care that is not on file here, please bring a copy the day of surgery. 3. Please shower/bathe the night before surgery with the provided soap or wipes. Do not shower the morning of surgery- you will do use wipes when you arrive here at the hospital before getting into your surgical gown. Do not shave the area of your procedure for 2 days prior to your surgery. 4. NO powder, lotion, perfume/cologne, aftershave, make-up, deodorant, or hair products after you have bathed. 5. NO nail singaporean/acrylic on at least one finger. If you are having a hand, wrist or foot surgery then all nail singaporean and artificial/acrylic nails must be removed from that hand or foot. 6. Avoid ALL Aspirin and non-steroidal anti-inflammatory drugs and certain vitamins (Ibuprofen, Advil, Aleve, Excedrin, Meloxicam, Celebrex, fish/krill oil, etc.) for 7 days prior to surgery as instructed by your surgeon and/or your prescribing doctor. Tylenol IS ALLOWED. If you are on Ticlid, Xarelto, Eliquis, Pradaxa, Plavix or Coumadin, please check with your prescribing doctor for instructions for when to stop them. 7. If you use an inhaler, continue to use it routinely. 8. Nothing to eat or drink (not even water, gum, mints, or hard candy!) AFTER midnight prior to your surgery. 9. Take only medications that you are instructed to on the morning of surgery with a TINY SIP OF WATER. 10. Choose a responsible adult that will be able to drive you home when you are discharged from your hospital stay for your surgery and can stay with you in your home for 24 hours after your procedure. You must NOT drive any vehicle or operate any machinery for 24 hours after surgery. 11. When you dress for your appointment, please wear loose fitting clothing that is appropriate to accommodate your surgical area procedure. BRING WITH YOU ANY DEVICES YOU MAY NEED: GUI hose, ice machine, sling/swath, brace or special shoe, oversized zip-up or button up shirt, CPAP machine if staying overnight. 12. Do NOT wear jewelry, watches, or any piercings or metal for surgery- leave these valuables and money at home. 13. Do NOT wear contact lenses for surgery- glasses are okay if needed. 14. The anesthesiologist will talk with you the day of surgery and will ask you to sign a Consent Form. 15. Refrain from smoking or any type of tobacco use for at least 8 hours and marijuana for 24 hoursprior to arrival for your surgery. 16. If a GREEN BLOOD band is given to you, please bring it with you for the day of surgery. 17. Notify your surgeon if you develop any illness before your surgery. 18. If you are staying overnight, please DO NOT BRING your home medications with you. 19. If you have any questions prior to surgery, please call the Preadmission Testing office at [phone], Mon.-Fri. 7 a.m.-3 p.m. Leave a voicemail if needed. Pre-Surgery Instructions: Medication Instructions albuterol (PROVENTIL HFA;VENTOLIN HFA) 90 mcg/actuation inhaler Take morning of procedure if needed beta-carotene,A,-vits C,E/mins (OCUVITE ORAL) Stop taking 0 days prior to procedure MAGNESIUM ORAL Stop taking 0 days prior to procedure nicotine polacrilex (NICORETTE) 2 mg gum Stop taking 0 days prior to procedure omeprazole (PriLOSEC) 40 mg capsule Take morning of procedure valACYclovir (VALTREX) 1000 mg tablet Stop taking 0 days prior to procedure How to Avoid an Infection after Your Surgery Your doctor will give you specific instructions, but remember: -ALWAYS wash hands before caring for your incision. -No picking, scratching, or rubbing your incision. -No creams, lotion, powder, rubbing alcohol or hydrogen peroxide on the incision (can harm the tissue and slow healing). -Your doctor will give you specific instructions for what type of dressing you will need and how often it will need changed for infection purposes. -No tight clothing on incision. -Do not allow anyone to touch your incision unless they are cleaning, checking, or redressing it (be sure they wash their hands first). -No contact of your incision with pets; avoid sleeping with pets. -Take full course of antibiotic if prescribed for you after surgery- do not stop unless directed alejandra your physician. You may also be given an antibiotic prior to your surgery to help prevent surgical site infections. -Eat a healthy and varied diet including proteins, fruits, and vegetables to help promote wound healing and keep blood sugars under control if you are diabetic. -Smoking slows the healing process by decreasing the amount of oxygen in your blood that is needed for tissue healing. Try to avoid or stop smoking if possible. LOOK at your incision each morning and each night to check the progress of healing. Some soreness, numbness, itching and/or mild bruising around the incision is normal. Call your doctor if you noticeany of the following: -Increased redness or hardening around the incision area. -Increased pain at the incision site. -Incision feels hot to the touch. -Swelling or pulling apart of the incision edges. -Yellow or green drainage or foul odor coming from the incision. -Bleeding from the incision (apply pressure as needed). -Fever higher than 101 degrees Fahrenheit for more than 4 hours. SHOWERING: Your doctor will give you specific instructions, but remember: -Be careful getting into and out of the shower. -Showers should be quick (5 minutes or less). -Use a clean washcloth to gently wash your incision with soap and water and pat the area dry with aclean towel. -No re-using wash cloths or towels; get a fresh one to clean your incision. -Do not soak in the bathtub, go swimming or use a hot tub (Jacuzzi), or perform activities where your incision is submerged in water or exposed to any fluids or substances until instructed by your doctor. -If your have the sticky strips (steri-strips) over the incision, it is OK to shower with them. Do not remove them. Let them fall off on their own. If you have a question, call your doctor s office. Go to the follow-up appointment with your doctor. documented in this encounterDayton Osteopathic HospitalWorkAmerica Southwest Regional Rehabilitation [id number] Miscellaneous Notes* Perioperative Nursing Note - Lis Card RN - 07/28/2024 10:30 AM EST Preoperative Education Checklist- General Surgery date: 08/09/24 Surgery time: 1030 a.m. Arrival time: 0830 a.m. 1. Bring a photo ID and your insurance card with you the day of surgery. You will check in at the main lobby of the [facility]- registration desk is straight ahead as soon as you walk in. Tell them you are here for surgery. 2. If you have a Living Will/Durable Power of Safety Pin Assembling [employer] for Health Care that is not on file here, please bring a copy the day of surgery. 3. Please shower/bathe the night before surgery with the provided soap or wipes. Do not shower the morning of surgery- you will do use wipes when you arrive here at the hospital before getting into your surgical gown. Do not shave the area of your procedure for 2 days prior to your surgery. 4. NO powder, lotion, perfume/cologne, aftershave, make-up, deodorant, or hair products after you have bathed. 5. NO nail singaporean/acrylic on at least one finger. If you are having a hand, wrist or foot surgery then all nail singaporean and artificial/acrylic nails must be removed from that hand or foot. 6. Avoid ALL Aspirin and non-steroidal anti-inflammatory drugs and certain vitamins (Ibuprofen, Advil, Aleve, Excedrin, Meloxicam, Celebrex, fish/krill oil, etc.) for 7 days prior to surgery as instructed by your surgeon and/or your prescribing doctor. Tylenol IS ALLOWED. If you are on Ticlid, Xarelto, Eliquis, Pradaxa, Plavix or Coumadin, please check with your prescribing doctor for instructions for when to stop them. 7. If you use an inhaler, continue to use it routinely. 8. Nothing to eat or drink (not even water, gum, mints, or hard candy!) AFTER midnight prior to your surgery. 9. Take only medications that you are instructed to on the morning of surgery with a TINY SIP OF WATER. 10. Choose a responsible adult that will be able to drive you home when you are discharged from your hospital stay for your surgery and can stay with you in your home for 24 hours after your procedure. You must NOT drive any vehicle or operate any machinery for 24 hours after surgery. 11. When you dress for your appointment, please wear loose fitting clothing that is appropriate to accommodate your surgical area procedure. BRING WITH YOU ANY DEVICES YOU MAY NEED: GUI hose, ice machine, sling/swath, brace or special shoe, oversized zip-up or button up shirt, CPAP machine if staying overnight. 12. Do NOT wear jewelry, watches, or any piercings or metal for surgery- leave these valuables and money at home. 13. Do NOT wear contact lenses for surgery- glasses are okay if needed. 14. The anesthesiologist will talk with you the day of surgery and will ask you to sign a Consent Form. 15. Refrain from smoking or any type of tobacco use for at least 8 hours and marijuana for 24 hoursprior to arrival for your surgery. 16. If a GREEN BLOOD band is given to you, please bring it with you for the day of surgery. 17. Notify your surgeon if you develop any illness before your surgery. 18. If you are staying overnight, please DO NOT BRING your home medications with you. 19. If you have any questions prior to surgery, please call the Preadmission Testing office at [phone], Mon.-Fri. 7 a.m.-3 p.m. Leave a voicemail if needed. Pre-Surgery Instructions: Medication Instructions albuterol (PROVENTIL HFA;VENTOLIN HFA) 90 mcg/actuation inhaler Take morning of procedure if needed beta-carotene,A,-vits C,E/mins (OCUVITE ORAL) Stop taking 0 days prior to procedure MAGNESIUM ORAL Stop taking 0 days prior to procedure nicotine polacrilex (NICORETTE) 2 mg gum Stop taking 0 days prior to procedure omeprazole (PriLOSEC) 40 mg capsule Take morning of procedure valACYclovir (VALTREX) 1000 mg tablet Stop taking 0 days prior to procedure How to Avoid an Infection after Your Surgery Your doctor will give you specific instructions, but remember: -ALWAYS wash hands before caring for your incision. -No picking, scratching, or rubbing your incision. -No creams, lotion, powder, rubbing alcohol or hydrogen peroxide on the incision (can harm the tissue and slow healing). -Your doctor will give you specific instructions for what type of dressing you will need and how often it will need changed for infection purposes. -No tight clothing on incision. -Do not allow anyone to touch your incision unless they are cleaning, checking, or redressing it (be sure they wash their hands first). -No contact of your incision with pets; avoid sleeping with pets. -Take full course of antibiotic if prescribed for you after surgery- do not stop unless directed alejandra your physician. You may also be given an antibiotic prior to your surgery to help prevent surgical site infections. -Eat a healthy and varied diet including proteins, fruits, and vegetables to help promote wound healing and keep blood sugars under control if you are diabetic. -Smoking slows the healing process by decreasing the amount of oxygen in your blood that is needed for tissue healing. Try to avoid or stop smoking if possible. LOOK at your incision each morning and each night to check the progress of healing. Some soreness, numbness, itching and/or mild bruising around the incision is normal. Call your doctor if you noticeany of the following: -Increased redness or hardening around the incision area. -Increased pain at the incision site. -Incision feels hot to the touch. -Swelling or pulling apart of the incision edges. -Yellow or green drainage or foul odor coming from the incision. -Bleeding from the incision (apply pressure as needed). -Fever higher than 101 degrees Fahrenheit for more than 4 hours. SHOWERING: Your doctor will give you specific instructions, but remember: -Be careful getting into and out of the shower. -Showers should be quick (5 minutes or less). -Use a clean washcloth to gently wash your incision with soap and water and pat the area dry with aclean towel. -No re-using wash cloths or towels; get a fresh one to clean your incision. -Do not soak in the bathtub, go swimming or use a hot tub (Jacuzzi), or perform activities where your incision is submerged in water or exposed to any fluids or substances until instructed by your doctor. -If your have the sticky strips (steri-strips) over the incision, it is OK to shower with them. Do not remove them. Let them fall off on their own. If you have a question, call your doctor s office. Go to the follow-up appointment with your doctor. * Perioperative Nursing Note - Lis Card RN - 07/28/2024 10:30 AM EST Hibiclens and surgical instructions reviewed. Patient and verbalized understanding. documented in [facility] encounterProv[facility] Nurse Note* Perioperative Nursing Note - Lis Card RN - 07/28/2024 10:30 AM EST Preoperative Education Checklist- General Surgery date: 08/09/24 Surgery time: 1030 a.m. Arrival time: 0830 a.m. 1. Bring a photo ID and your insurance card with you the day of surgery. You will check in at the main lobby of the [facility]- registration desk is straight ahead as soon as you walk in. Tell them you are here for surgery. 2. If you have a Living Will/Durable Power of Safety Pin Assembling Machine Operator for Health Care that is not on file here, please bring a copy the day of surgery. 3. Please shower/bathe the night before surgery with the provided soap or wipes. Do not shower the morning of surgery- you will do use wipes when you arrive here at the hospital before getting into your surgical gown. Do not shave the area of your procedure for 2 days prior to your surgery. 4. NO powder, lotion, perfume/cologne, aftershave, make-up, deodorant, or hair products after you have bathed. 5. NO nail singaporean/acrylic on at least one finger. If you are having a hand, wrist or foot surgery then all nail singaporean and artificial/acrylic nails must be removed from that hand or foot. 6. Avoid ALL Aspirin and non-steroidal anti-inflammatory drugs and certain vitamins (Ibuprofen, Advil, Aleve, Excedrin, Meloxicam, Celebrex, fish/krill oil, etc.) for 7 days prior to surgery as instructed by your surgeon and/or your prescribing doctor. Tylenol IS ALLOWED. If you are on Ticlid, Xarelto, Eliquis, Pradaxa, Plavix or Coumadin, please check with your prescribing doctor for instructions for when to stop them. 7. If you use an inhaler, continue to use it routinely. 8. Nothing to eat or drink (not even water, gum, mints, or hard candy!) AFTER midnight prior to your surgery. 9. Take only medications that you are instructed to on the morning of surgery with a TINY SIP OF WATER. 10. Choose a responsible adult that will be able to drive you home when you are discharged from your hospital stay for your surgery and can stay with you in your home for 24 hours after your procedure. You must NOT drive any vehicle or operate any machinery for 24 hours after surgery. 11. When you dress for your appointment, please wear loose fitting clothing that is appropriate to accommodate your surgical area procedure. BRING WITH YOU ANY DEVICES YOU MAY NEED: GUI hose, ice machine, sling/swath, brace or special shoe, oversized zip-up or button up shirt, CPAP machine if staying overnight. 12. Do NOT wear jewelry, watches, or any piercings or metal for surgery- leave these valuables and money at home. 13. Do NOT wear contact lenses for surgery- glasses are okay if needed. 14. The anesthesiologist will talk with you the day of surgery and will ask you to sign a Consent Form. 15. Refrain from smoking or any type of tobacco use for at least 8 hours and marijuana for 24 hoursprior to arrival for your surgery. 16. If a GREEN BLOOD band is given to you, please bring it with you for the day of surgery. 17. Notify your surgeon if you develop any illness before your surgery. 18. If you are staying overnight, please DO NOT BRING your home medications with you. 19. If you have any questions prior to surgery, please call the Preadmission Testing office at [phone], Mon.-Fri. 7 a.m.-3 p.m. Leave a voicemail if needed. Pre-Surgery Instructions: Medication Instructions albuterol (PROVENTIL HFA;VENTOLIN HFA) 90 mcg/actuation inhaler Take morning of procedure if needed beta-carotene,A,-vits C,E/mins (OCUVITE ORAL) Stop taking 0 days prior to procedure MAGNESIUM ORAL Stop taking 0 days prior to procedure nicotine polacrilex (NICORETTE) 2 mg gum Stop taking 0 days prior to procedure omeprazole (PriLOSEC) 40 mg capsule Take morning of procedure valACYclovir (VALTREX) 1000 mg tablet Stop taking 0 days prior to procedure How to Avoid an Infection after Your Surgery Your doctor will give you specific instructions, but remember: -ALWAYS wash hands before caring for your incision. -No picking, scratching, or rubbing your incision. -No creams, lotion, powder, rubbing alcohol or hydrogen peroxide on the incision (can harm the tissue and slow healing). -Your doctor will give you specific instructions for what type of dressing you will need and how often it will need changed for infection purposes. -No tight clothing on incision. -Do not allow anyone to touch your incision unless they are cleaning, checking, or redressing it (be sure they wash their hands first). -No contact of your incision with pets; avoid sleeping with pets. -Take full course of antibiotic if prescribed for you after surgery- do not stop unless directed alejandra your physician. You may also be given an antibiotic prior to your surgery to help prevent surgical site infections. -Eat a healthy and varied diet including proteins, fruits, and vegetables to help promote wound healing and keep blood sugars under control if you are diabetic. -Smoking slows the healing process by decreasing the amount of oxygen in your blood that is needed for tissue healing. Try to avoid or stop smoking if possible. LOOK at your incision each morning and each night to check the progress of healing. Some soreness, numbness, itching and/or mild bruising around the incision is normal. Call your doctor if you noticeany of the following: -Increased redness or hardening around the incision area. -Increased pain at the incision site. -Incision feels hot to the touch. -Swelling or pulling apart of the incision edges. -Yellow or green drainage or foul odor coming from the incision. -Bleeding from the incision (apply pressure as needed). -Fever higher than 101 degrees Fahrenheit for more than 4 hours. SHOWERING: Your doctor will give you specific instructions, but remember: -Be careful getting into and out of the shower. -Showers should be quick (5 minutes or less). -Use a clean washcloth to gently wash your incision with soap and water and pat the area dry with aclean towel. -No re-using wash cloths or towels; get a fresh one to clean your incision. -Do not soak in the bathtub, go swimming or use a hot tub (Jacuzzi), or perform activities where your incision is submerged in water or exposed to any fluids or substances until instructed by your doctor. -If your have the sticky strips (steri-strips) over the incision, it is OK to shower with them. Do not remove them. Let them fall off on their own. If you have a question, call your doctor s office. Go to the follow-up appointment with your doctor. [facility]03-05-2025 Nurse Note* Perioperative Nursing Note - Lis Card RN - 07/28/2024 10:30 AM EST Hibiclens and surgical instructions reviewed. Patient and verbalized understanding. [facility]03-04-2025 History of Present illness Narrative* Jerry Mei MD - 07/27/2024 9:45 AM EST Images from the original note were not included. Chief Complaint: Right upper quadrant/epigastric pain History of Present Illness: Dexter Summers is a 49 y.o. male who presents to the office due to right upper quadrant and epigastric pain. He was previously seen for this, underwent EGD and colonoscopy. EGD revealed gastritis and superficial gastric ulcers. Colonoscopy was unremarkable except for diverticulosis. He is currently on Prilosec 40 mg oral twice daily. He was also placed on sucralfate. He continues to report right upper quadrant and epigastric pain. This is associated with nausea, emesis and decreased appetite. He notes frequent loose stools. He notes weight loss due to poor appetite. The pain began last summer. Notes 20 lb weight loss. Gallbladder ultrasound was ordered during his last visit this was performed, showed cholelithiasis, 2.5 cm stone, gallbladder sludge and borderline thickened gallbladder wall. He was a smoker. He was cut back to 4 cigarettes per day. He was cut back on carbonated beverages. Denies alcohol or THC use. Denies any improvements in symptoms except for better appetite since he was placed on sucralfate and increased dose of Prilosec. He reports that he was taking many days off of work due to the pain. He was recently put in his noticed for work HPI Review of Systems Constitutional: Negative for fever and chills. Respiratory: Negative for shortness of breath. Cardiovascular: Negative for chest pain and palpitations. Gastrointestinal: Positive for nausea, vomiting and abdominal pain. Genitourinary: Negative for dysuria and difficulty urinating. Skin: Negative for rash and wound. Allergic/Immunologic: Negative for immunocompromised state. Neurological: Negative for weakness and light-headedness. Hematological: Does not bruise/bleed easily. Psychiatric/Behavioral: Negative for behavioral problems and confusion. Past Medical History: Diagnosis Date Anxiety 05-26-2019 Arthritis 05-26-2021 Back pain Chronic emphysema syndrome ([facility]) COPD (chronic obstructive pulmonary disease) ([facility]) Failure to thrive (child) GERD (gastroesophageal reflux disease) Inflammatory bowel disease Peptic ulceration Sleep apnea cpap Varicella Visual impairment Past Surgical History: Procedure Laterality Date ADENOIDECTOMY APPENDECTOMY ARM SURGERY COLONOSCOPY COLONOSCOPY DIAGNOSTIC / SCREENING N/A 07/09/2024 Performed by Jerry Mei MD at [facility] ESOPHAGOGASTRODUODENOSCOPY DIAGNOSTIC N/A 07/09/2024 Performed by Jerry Mei MD at [facility] EYE SURGERY Left as a child MASS EXCISION 2017 left testicle SKIN BIOPSY TONSILLECTOMY Allergies Allergen Reactions Duloxetine Hcl Dizziness Clonidine Trazodone Current Outpatient Medications: albuterol (PROVENTIL HFA;VENTOLIN HFA) 90 mcg/actuation inhaler, Inhale 2 puffs 4 (four) times a day., Disp: , Rfl: beta-carotene,A,-vits C,E/mins (OCUVITE ORAL), Take 1 tablet by mouth in the morning., Disp: , Rfl: MAGNESIUM ORAL, Take 1 tablet by mouth in the morning., Disp: , Rfl: nicotine polacrilex (NICORETTE) 2 mg gum, Chew 1 each (2 mg total) as directed as needed for smoking cessation., Disp: , Rfl: omeprazole (PriLOSEC) 40 mg capsule, Take 1 capsule (40 mg total) by mouth in the morning and 1 capsule (40 mg total) before bedtime. Do all this for 60 days., Disp: 120 capsule, Rfl: 0 valACYclovir (VALTREX) 1000 mg tablet, Take 1 tablet (1,000 mg total) by mouth in the morning., Disp: , Rfl: Social History Socioeconomic History Marital status: Spouse name: Not on file Number of children: Not on file Years of education: Not on file Highest education level: Not on file Occupational History Not on file Tobacco Use Smoking status: Every Day Current packs/day: 0.50 Average packs/day: 0.5 packs/day for 20.0 years (10.0 ttl pk-yrs) Types: Cigarettes Start date: 07/09/2004 Smokeless tobacco: Never Vaping Use Vaping status: Never Used Substance and Sexual Activity Alcohol use: Not Currently Drug use: Not Currently Sexual activity: Yes Partners: Female Other Topics Concern Not on file Social History Narrative Not on file Social Drivers of Health Financial Resource Strain: Patient Declined (06/03/2024) Received from [facility] Overall Financial Resource Strain (CARDIA) Difficulty of Paying Living Expenses: Patient declined Food Insecurity: No Food Insecurity (06/24/2024) Hunger Screening Food Insecurity - Worry: Never True Food Insecurity - Inability: Never True Transportation Needs: Patient Declined (06/03/2024) Received from [facility] PRAPARE - Transportation Lack of Transportation (Medical): Patient declined Lack of Transportation (Non-Medical): Patient declined Physical Activity: Sufficiently Active (06/03/2024) Received from [facility] Exercise Vital Sign Days of Exercise per Week: 7 days Minutes of Exercise per Session: 150+ min Stress: No Stress Concern Present (06/03/2024) Received from [facility] [employer] [facility] [employer] - Occupational Stress Questionnaire Feeling of Stress : Not at all Social Connections: Unknown (06/03/2024) Received from [facility] Social Connection and Isolation Panel [NHANES] Frequency of Communication with Friends and Family: More than three times a week Frequency of Social Gatherings with Friends and Family: More than three times a week Attends Congregational Services: Patient declined Active Member of Clubs or Organizations: Patient declined Attends Club or Organization Meetings: Patient declined Marital Status: Interpersonal Safety: Not on file Housing Instability: Patient Declined (06/03/2024) Received from [facility] Housing Stability Vital Sign Unable to Pay for Housing in the Last Year: Patient declined Number of Times Moved in the Last Year: Not on file Homeless in the Last Year: Patient declined Family History Problem Relation Age of Onset Hyperlipidemia Mother Diabetes Mother Hypertension Mother Macular degeneration Mother Mental illness Mother Miscarriages / Stillbirths Mother Vision loss Mother Hypertension Father Diabetes Father Heart attack Father Heart disease Father Quadruple bypass Vision loss Father Physical Exam Vitals reviewed. Constitutional: Appearance: Normal appearance. HENT: Head: Normocephalic and atraumatic. Eyes: Pupils: Pupils are equal, round, and reactive to light. Cardiovascular: Rate and Rhythm: Normal rate. Pulmonary: Effort: Pulmonary effort is normal. Abdominal: General: There is no distension. Palpations: Abdomen is soft. Tenderness: There is no abdominal tenderness. There is guarding. Musculoskeletal: General: No swelling. Skin: General: Skin is warm and dry. Neurological: Mental Status: He is alert and oriented to person, place, and time. Mental status is at baseline. Psychiatric: Mood and Affect: Mood normal. Behavior: Behavior normal. Vital Signs: Blood pressure (!) 143/95, height 185.4 cm (6' 1 ), weight 68.5 kg (151 lb). Respiratory Source: No data recorded Admission Weight: Weight: 68.5 kg (151 lb) Labs: Lab Results Component Value Date WBC 11.0 03/24/2020 HGB 16.5 03/24/2020 HCT 48.3 03/24/2020 MCV 96 03/24/2020 PLT 239 03/24/2020 Lab Results Component Value Date GLU 95 03/24/2020 CALCIUM 9.0 03/24/2020 K 4.3 03/24/2020 CO2 27 03/24/2020 CL 107 03/24/2020 BUN 12 03/24/2020 CREATININE 0.95 03/24/2020 No results found for: AMYLASE No results found for: LIPASE Lab Results Component Value Date ALT 11 03/24/2020 AST 15 03/24/2020 No results found for: INR , PROTIME Imaging: Gallbladder ultrasound 07/23/2024 Personally reviewed and interpreted. Large gallstone measuring 2.5 cm, sludge, gallbladder wall thickening Assessment: Dexter Summers is a 49 y.o.male with biliary colic Biliary colic [K80.50] Plan: Obtain CT abdomen and pelvis Schedule for robotic cholecystectomy The reasons for surgery, alternatives to surgery, and natural history of the disease without surgery were addressed with the patient. We discussed the potential risks and benefits of the surgery. I gave ample opportunity for the patient to ask questions which I answered to their apparent satisfaction. He seemed to understand and provided consent. Evaluation included: Preparing to see the patient (e.g., review of tests) Obtaining and/or reviewing separately obtained history Performing a medically appropriate examination and/or evaluation Counseling and educating the patient/family/caregiver Referring and communicating with other health children's zoo caretaker Jerry Mei MD [facility] [place] documented in this encounterProv[facility]02-[facility]25 Miscellaneous Notes* Telephone Encounter - Leeann Zavala CMA - 07/20/2024 3:45 PM EST ----- Message from Dr. Jerry Mei MD sent at 07/20/2024 8:23 AM EST ----- Regarding: Pathology Please let patient know that biopsies showed gastropathy, changes in the stomach lining due to irritating substances. He should avoid tobacco, alcohol, drug use. Avoid NSAIDs such as ibuprofen, avoidspicy foods ----- Message ----- From: Interface - Lab Results/Orders In Sent: 07/10/2024 12:19 PM EST To: Jerry Mei MD * Telephone Encounter - Leeann Zavala CMA - 07/20/2024 3:45 PM EST Spoke with patient regarding pathology results. Patient verbally understood with no further questions. documented in this encounterProvidence Hospital02-25-2025 Telephone encounter Note* Telephone Encounter - Leeann Zavala CMA - 07/20/2024 3:45 PM EST ----- Message from Dr. Jerry Mei MD sent at 07/20/2024 8:23 AM EST ----- Regarding: Pathology Please let patient know that biopsies showed gastropathy, changes in the stomach lining due to irritating substances. He should avoid tobacco, alcohol, drug use. Avoid NSAIDs such as ibuprofen, avoidspicy foods ----- Message ----- From: Interface - Lab Results/Orders In Sent: 07/10/2024 12:19 PM EST To: Jerry Mei MD [facility]02-25-2025 Telephone encounter Note* Telephone Encounter - Leeann Zavala CMA - 07/20/2024 3:45 PM EST Spoke with patient regarding pathology results. Patient verbally understood with no further questions. [facility]01-30-2025 History of Present illness Narrative* Cecily Larose APRN-PHYSICAL INTEGRATION PRACTITIONER - 06/24/2024 11:30 AM EST Images from the original note were not included. Chief Complaint: Unintentional weight loss History of Present Illness Dexter Summers is a 48 y.o. male to the office with his for several GI concerns. Symptoms started summer 2023. He reports epigastric pain, nausea and decreased appetite. The pain is random, sometimes it occurs before he eats and sometimes it occurs after he eats. He also reports heartburn with spicy foods. He denies vomiting. He smokes 4-6 cigarettes daily and is working on quitting. He hastried taking a PPI with no relief in symptoms. He also reports lower abdominal pain. He used to have a lot of diarrhea, but he is now constipated.He admits to drinking very little water. He states he mainly drinks Pepsi. He denies any rectal bleeding. He eats a healthy Mediterranean diet. He has lost about 20-30 lb without trying. Patient and are very concerned and tearful. He had labs drawn by his PCP which all came back normal. He has had a colonoscopy in the past, but it has been several years. His mom had gallbladder issues so they would like that checked. Review of Systems Constitutional: Positive for unexpected weight change. Negative for fever. HENT: Negative for trouble swallowing. Respiratory: Negative for shortness of breath. Cardiovascular: Negative for chest pain. Gastrointestinal: Positive for nausea, abdominal pain, diarrhea and constipation. Negative for blood in stool. Genitourinary: Negative for dysuria and difficulty urinating. Musculoskeletal: Negative for gait problem. Skin: Negative for rash and wound. Neurological: Negative for dizziness, weakness and light-headedness. Hematological: Does not bruise/bleed easily. Psychiatric/Behavioral: Negative for confusion. Past Medical History: Diagnosis Date Chronic emphysema syndrome ([facility] [place]) COPD (chronic obstructive pulmonary disease) ([facility] [place]) Sleep apnea cpap Past Surgical History: Procedure Laterality Date EYE SURGERY Left as a child MASS EXCISION 2017 left testicle TONSILLECTOMY Allergies Allergen Reactions Duloxetine Hcl Dizziness Clonidine Trazodone Current Outpatient Medications: albuterol (PROVENTIL HFA;VENTOLIN HFA) 90 mcg/actuation inhaler, Inhale 2 puffs 4 (four) times a day., Disp: , Rfl: beta-carotene,A,-vits C,E/mins (OCUVITE ORAL), Take 1 tablet by mouth in the morning., Disp: , Rfl: MAGNESIUM ORAL, Take 1 tablet by mouth in the morning., Disp: , Rfl: nicotine polacrilex (NICORETTE) 2 mg gum, Chew 1 each (2 mg total) as directed as needed for smoking cessation., Disp: , Rfl: valACYclovir (VALTREX) 1000 mg tablet, Take 1 tablet (1,000 mg total) by mouth in the morning., Disp: , Rfl: sod sulf-pot chloride-mag sulf 1.479-0.188- 0.225 gram tablet, Please see instructional sheet givenby physicians office., Disp: 24 tablet, Rfl: 0 Social History Socioeconomic History Marital status: Spouse name: Not on file Number of children: Not on file Years of education: Not on file Highest education level: Not on file Occupational History Not on file Tobacco Use Smoking status: Every Day Types: Cigarettes Smokeless tobacco: Never Vaping Use Vaping status: Never Used Substance and Sexual Activity Alcohol use: Not Currently Drug use: Not Currently Sexual activity: Not Currently Partners: Female Other Topics Concern Not on file Social History Narrative Not on file Social Drivers of Health Financial Resource Strain: Patient Declined (06/03/2024) Received from [facility] Overall Financial Resource Strain (CARDIA) Difficulty of Paying Living Expenses: Patient declined Food Insecurity: No Food Insecurity (06/24/2024) Hunger Screening Food Insecurity - Worry: Never True Food Insecurity - Inability: Never True Transportation Needs: Patient Declined (06/03/2024) Received from [facility] - Transportation Lack of Transportation (Medical): Patient declined Lack of Transportation (Non-Medical): Patient declined Physical Activity: Sufficiently Active (06/03/2024) Received from [facility] Exercise Vital Sign Days of Exercise per Week: 7 days Minutes of Exercise per Session: 150+ min Stress: No Stress Concern Present (06/03/2024) Received from [facility] [employer] [facility] [employer] - Occupational Stress Questionnaire Feeling of Stress : Not at all Social Connections: Unknown (06/03/2024) Received from [facility] Social Connection and Isolation Panel [NHANES] Frequency of Communication with Friends and Family: More than three times a week Frequency of Social Gatherings with Friends and Family: More than three times a week Attends Congregational Services: Patient declined Active Member of Clubs or Organizations: Patient declined Attends Club or Organization Meetings: Patient declined Marital Status: Interpersonal Safety: Not on file Housing Instability: Patient Declined (06/03/2024) Received from [facility] Housing Stability Vital Sign Unable to Pay for Housing in the Last Year: Patient declined Number of Times Moved in the Last Year: Not on file Homeless in the Last Year: Patient declined Family History Problem Relation Age of Onset Hyperlipidemia Mother Diabetes Mother Hypertension Mother Macular degeneration Mother Hypertension Father Diabetes Father Heart attack Father Objective Physical Exam Constitutional: General: He is not in acute distress. Appearance: Normal appearance. He is not ill-appearing. HENT: Head: Normocephalic and atraumatic. Mouth/Throat: Mouth: Mucous membranes are moist. Eyes: Pupils: Pupils are equal, round, and reactive to light. Cardiovascular: Rate and Rhythm: Normal rate. Pulmonary: Effort: Pulmonary effort is normal. No respiratory distress. Abdominal: General: There is no distension. Palpations: Abdomen is soft. Tenderness: There is abdominal tenderness in the right lower quadrant, epigastric area and left lower quadrant. There is no guarding. Hernia: No hernia is present. Comments: Mild tenderness Musculoskeletal: General: Normal range of motion. Skin: General: Skin is warm and dry. Neurological: Mental Status: He is alert and oriented to person, place, and time. Mental status is at baseline. Vital Signs: Blood pressure 130/76, pulse 82, height 185.4 cm (6' 1 ), weight 67.5 kg (148 lb 12.8 oz). Respiratory Source: No data recorded Admission Weight: Weight: 67.5 kg (148 lb 12.8 oz) Labs Lab Results Component Value Date WBC 11.0 03/24/2020 HGB 16.5 03/24/2020 HCT 48.3 03/24/2020 MCV 96 03/24/2020 PLT 239 03/24/2020 Lab Results Component Value Date GLU 95 03/24/2020 CALCIUM 9.0 03/24/2020 K 4.3 03/24/2020 CO2 27 03/24/2020 CL 107 03/24/2020 BUN 12 03/24/2020 CREATININE 0.95 03/24/2020 No results found for: AMYLASE No results found for: LIPASE Lab Results Component Value Date ALT 11 03/24/2020 AST 15 03/24/2020 No results found for: INR , PROTIME Assessment Epigastric pain, nausea, decreased appetite Unintentional weight loss 20-30 lbs Lower abdominal pain, change in bowel habits Plan Schedule EGD and colonoscopy. Gallbladder ultrasound. Smoking cessation, cut back on Pepsi and carbonated beverages, increase water intake. Evaluation included: Preparing to see the patient (e.g., review of tests) Obtaining and/or reviewing separately obtained history Performing a medically appropriate examination and/or evaluation Counseling and educating the patient/family/caregiver Referring and communicating with other health children's zoo caretaker Unintentional weight loss [R63.4] SERA HAN [facility] [place] This note was created with the assistance of a speech recognition program. While intending to generate a timely document that accurately reflects the content of the visit, no guarantee can be provided that every grammatical or spelling mistake has been or will be identified or corrected. Thank you for your understanding. SERA Han 06/24/24 1345 documented in this encounterProvidence Hospital01-10-2025 History of Present illness Narrative* Sarmad Jefferson MD - 06/04/2024 1:54 PM ESTAssociated Problem(s): Tobacco use disorder, continuous Cutting back on smoking and continue nicotine replacement. * Sarmad Jefferson MD - 06/04/2024 1:54 PM ESTAssociated Problem(s): Major depressive disorder, recurrent, moderate (CMS/HCC) Doing well without medication and monitor. Continue counseling. * Sarmad Jefferson MD - 06/04/2024 1:54 PM ESTAssociated Problem(s): Generalized anxiety disorder (CMS/HCC) Doing well without medication and monitor. Continue counseling. * Sarmad Jefferson MD - 06/04/2024 1:54 PM ESTAssociated Problem(s): Gastroesophageal reflux disease without esophagitis Symptoms controlled with protonix and continue. * Sarmad Jefferson MD - 06/04/2024 1:54 PM ESTAssociated Problem(s): COPD, moderate (CMS/HCC) Symptoms stable and use albuterol PRN. Need to stop smoking. * Sarmad Jefferson MD - 06/04/2024 9:30 AM EST Images from the original note were not included. Subjective Patient ID: Dexter Summers is a 48 y.o. male who presents for Follow-up. Follow up depression and anxiety. Patient stable today. Overall mood okay without medication. Not down or sad and feels happier. Anxiety stable. Not as stressed out or overwhelmed. Not as nervous or worry as much. Not as guerrero or irritable. Overall less stress and started marriage counseling. GERD controlled with protonix. Denies epigastric pain or burning and not waking up with symptoms. COPD stable. Continues to have SOB with exertion. Using albuterol PRN which helps. Using albuterol PRN. Cutting back on smoking and down to about 6 a day. Review of Systems Constitutional: Negative for fatigue. Respiratory: Positive for shortness of breath. Negative for cough and wheezing. Cardiovascular: Negative for chest pain and palpitations. Gastrointestinal: Negative for abdominal pain, diarrhea, nausea and vomiting. Genitourinary: Negative for dysuria. Objective Physical Exam Constitutional: General: He is not in acute distress. Appearance: Normal appearance. HENT: Head: Normocephalic. Right Ear: Tympanic membrane and ear canal normal. Left Ear: Tympanic membrane and ear canal normal. Eyes: Extraocular Movements: Extraocular movements intact. Pupils: Pupils are equal, round, and reactive to light. Cardiovascular: Rate and Rhythm: Normal rate and regular rhythm. Heart sounds: No murmur heard. No friction rub. No gallop. Pulmonary: Breath sounds: Normal breath sounds. No wheezing, rhonchi or rales. Abdominal: General: Bowel sounds are normal. There is no distension. Palpations: Abdomen is soft. Tenderness: There is no abdominal tenderness. There is no guarding or rebound. Musculoskeletal: Left lower leg: No edema. Neurological: Mental Status: He is alert. Assessment/Plan Problem List Items Addressed This Visit COPD, moderate (CMS/HCC) Symptoms stable and use albuterol PRN. Need to stop smoking. Generalized anxiety disorder (CMS/HCC) Doing well without medication and monitor. Continue counseling. Major depressive disorder, recurrent, moderate (CMS/HCC) - Primary Doing well without medication and monitor. Continue counseling. Gastroesophageal reflux disease without esophagitis Symptoms controlled with protonix and continue. Tobacco use disorder, continuous Cutting back on smoking and continue nicotine replacement. Fatigue Relevant Orders Testosterone documented in this [id number] History of Present illness Narrative* Sarmad Jefferson MD - 01/23/2024 11:11 AM EDTAssociated Problem(s): Tobacco use disorder, continuous Start nicotine replacement. * Sarmad Jefferson MD - 01/23/2024 11:11 AM EDTAssociated Problem(s): Major depressive disorder, recurrent, moderate (HCC) (CMS/HCC) Doing well without medication and monitor. Continue counseling. * Sarmad Jefferson MD - 01/23/2024 11:11 AM EDTAssociated Problem(s): Generalized anxiety disorder (CMS/HCC) Doing well without medication and monitor. Continue counseling. * Sarmad Jefferson MD - 01/23/2024 11:11 AM EDTAssociated Problem(s): Gastroesophageal reflux disease without esophagitis Symptoms controlled with protonix and continue. * Sarmad Jefferson MD - 01/23/2024 11:11 AM EDTAssociated Problem(s): Gastroenteritis GI symptoms after drinking contaminated water and start cipro. * Sarmad Jefferson MD - 01/23/2024 11:10 AM EDTAssociated Problem(s): COPD, moderate (CMS/HCC) Symptoms stable and use albuterol PRN. Need to stop smoking. * Sarmad Jefferson MD - 01/23/2024 10:00 AM EDT Images from the original note were not included. Subjective Patient ID: Dexter Summers is a 48 y.o. male who presents for Follow-up (1m ). Follow up depression and anxiety. Patient doing well today. Stopped lexapro and taking OTC supplements. In counseling. Overall mood much improved. Not down or sad and feels happier. Anxiety stable. Not as stressed out or overwhelmed. Not as nervous or worry as much. Not as guerrero or irritable. notices an improvement in mood and patient more like self. GERD controlled with protonix. Denies epigastric pain or burning and not waking up with symptoms. COPD stable. Continues to have SOB with exertion. Using albuterol PRN which helps. Not on daily inhaler due to cost. Continues to smoke but trying to quit. Review of Systems Constitutional: Negative for fatigue. Respiratory: Negative for cough, shortness of breath and wheezing. Cardiovascular: Negative for chest pain and palpitations. Gastrointestinal: Negative for abdominal pain, diarrhea, nausea and vomiting. Genitourinary: Negative for dysuria. Objective Physical Exam Constitutional: General: He is not in acute distress. Appearance: Normal appearance. HENT: Head: Normocephalic. Right Ear: Tympanic membrane and ear canal normal. Left Ear: Tympanic membrane and ear canal normal. Eyes: Extraocular Movements: Extraocular movements intact. Pupils: Pupils are equal, round, and reactive to light. Cardiovascular: Rate and Rhythm: Normal rate and regular rhythm. Heart sounds: No murmur heard. No friction rub. No gallop. Pulmonary: Breath sounds: Normal breath sounds. No wheezing, rhonchi or rales. Abdominal: General: Bowel sounds are normal. There is no distension. Palpations: Abdomen is soft. Tenderness: There is no abdominal tenderness. There is no guarding or rebound. Musculoskeletal: Left lower leg: No edema. Neurological: Mental Status: He is alert. Assessment/Plan Problem List Items Addressed This Visit COPD, moderate (CMS/HCC) Symptoms stable and use albuterol PRN. Need to stop smoking. Generalized anxiety disorder (CMS/HCC) Doing well without medication and monitor. Continue counseling. Major depressive disorder, recurrent, moderate (HCC) (CMS/HCC) - Primary Doing well without medication and monitor. Continue counseling. Gastroesophageal reflux disease without esophagitis Symptoms controlled with protonix and continue. Relevant Medications pantoprazole (ProtoNix) 40 MG EC tablet Tobacco use disorder, continuous Start nicotine replacement. Relevant Medications nicotine polacrilex (Nicotine Mini) 4 MG lozenge Gastroenteritis GI symptoms after drinking contaminated water and start cipro. Relevant Medications ciprofloxacin (Cipro) 500 MG tablet documented in this [id number] Discharge summary Author Gerson Sainz [facility] November 17, 2023 12:18pmNote Date/TimeJune 2023 12:15pmCandace Ville [id number] Discharge Summary Signed Patient: Dexter Summers MR#: [id number] : 1975 Acct:[id number] Age/Sex: 48 / M Adm Date: 4 Loc: Room: [address] [place] [address]: Terrance Hartley MD Copies to: MD Gerson Rg MD Marc Naderer, MD~ Providers Date of Discharge: 11/17/23 Discharging Provider: Gerson Sainz Primary Care Provider: Sarmad Jefferson Discharge Diagnosis (1) Major depressive disorder: Final Diagnosis Final Discharge Diagnosis: MDD Summary Hospital Course Hospital course: Mr. Summers is a 48 year old male with no significant past medical history who presents for inpatienttreatment due to concern for depression and suicidal ideation. Reportedly, patient presented to theER complaints of depression and thoughts of suicide. He states he had thoughts of just ending his life. He denies any specific plan but states he thought about maybe a firearm, states he does not have a firearm at home. States has been going on for several weeks. He was recently on Abilify and stopped 3 weeks ago, he states that his doctor put him on for a mood stabilizer. Patient was personally seen by me on the day of the encounter. I reviewed the history and performedthe cavazos elements of the assessment. I formulated the planof care and confirmed this with the medical student as noted below At the time of the interview, patient presented as depressed. Patient reports of having thoughts ofharm to self for the past few weeks. He has no past attempts or thoughts prior to this event. He reports that he is fed up with life. Patient endorses that his thoughts come and go, but have increased in frequency. He started taking Abilify prescribed by his family med doctor for mood stabilization. He reports that they were not helpful and stopped taking it3 weeks ago. He reports that he would shoot himself but denies any firearms or weapons at home. Patient reports having auditory hallucinations telling him to kill himself. Report's his anxiety/depression at a 9 on a 0-10 anxiety/depression scale. Report's decreased appetite, weight loss, awaken frequently at night, and financial issues. States that he lives with his and they have been arguing frequently recently. 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 States his support is his . Patient denies any psych history. Past psych history: Denies Past hospitalizations: Denies Hospital psychiatric hospitalizations Past suicide attempts: Denies Previous medications: Abilify stopped 3 weeks ago Alcohol and drug use: Denies alcohol, denies drug use Living: Lives with Employment: Employed Patient was treated with Lexapro. He tolerated the medication without any problems and did not report any side effects. He had gradual improvement of hissymptoms as time went on. He started to attendgroups and socialize with selectstaff and peers. He did not exhibit any further behavior concerningfor suicidality. He did not have any conflict with staff or peers. As symptoms improved he started to deny any depression or suicidality. On the day of discharge, he stated that he was doing a lot better. He felt that the medications were helping him and he denied any thoughts of self-harm. He state dthat he would continue medication and follow-up with outpatient services. He reported that he would return to work on Friday. Time spent discussing smoking cessation with patient: 3 to 10 minutes Condition Condition at Discharge: Stable Status at Discharge Cognitive/behavioral status at discharge: Mental Status Exam: Appearance: grossly normal Mental Status: mental status grossly normal Mood: Euthymic mood Affect: Normal affect Speech and Movement: speech normal, movement normal Attitude: cooperative Thought Process: normal Thought Content: Denied hallucinations, no homicidality and no suicidality Insight: Good Judgment: Good Functional status at discharge: independent ambulation Overall status at discharge: patient is back to baseline Time Spent with Patient Time spent providing/coordinating discharge services (# min): 30 Discharge Plan Discharge Plan Patient Disposition: Home Activity: No Activity Restriction Diet: Regular Instructions: Depression, Adult (DC), [facility] [place] Instructions, Know your Meds Prescriptions: New nicotine 21 mg/24 hr Patch 24 Hour 21 mg transdermal DAILY Qty: 30 0RF escitalopram oxalate 10 mg Tablet 10 mg PO QAM 30 Days Qty: 30 0RF Continued methocarbamol 750 mg tablet 750 mg PO QID hyoscyamine sulfate 0.125 mg tablet, sublingual 0.125 mg sublingual QID PRN (Reason: dyspepsia) valacyclovir 1 gram tablet 1,000 mg PO DAILY Patient Comments: Discontinued aripiprazole 5 mg tablet 5 mg PO DAILY Exam Physical Exam Vital Signs: Temp Pulse Resp BP Pulse Ox O2 Del Method 98.1 F 56 L 16 125/73 96 Room Air 11/16/23 20:43 11/16/23 20:43 11/16/23 20:43 11/16/23 20:43 11/16/23 20:43 11/17/23 09:00 Documented By: Gerson Sainz MD 11/17/231213 Signed By: <Electronically signed by Gerson Sainz MD> 11/17/23 1218 [facility] Work Phone: 1(105) 673-899006-23-2024 Progress note Author Terrance chambers [facility] November 16, 2023 6:46amNote Date/TimeJune 2023 6:44[place] [address] Psychiatry Progress Note Signed Patient: Dexter uSmmers MR#: [id number] : 1975 Acct:[id number] Age/Sex: 48 / M Adm Date: 4 Loc: Room: [address] [place] [address] Type : ADM IN Attending Dr: Terrance Hartley MD Copies to: ~ Date of Service: 11/16/2023 Subjective Subjective Narrative: Mr. Summers said he tolerated increasing Lexapro. He attended groups and was more social on the unit with peers. He talked to his about coming home. He wantsto follow up with a counselor. He is doing fairly well. The patient reports improved mood and appetite, improved ability to enjoy certain activities, reduction of feelings of worthlessness or guilt, and improved focus and concentration. Hecontinues to struggle with anxiety occasionally. He is tolerating the current medication regimen without any side effects. He denied current SI/HI and verbalized the intent to notify staff if he has such thoughts. He denied any suicidal or self-injurious behaviors. I did talk with him about the importance of medication compliance as he believes the medicationsmade a good difference. Sleep and appetite are ok. Appearance: dressed casually Mental Status: mental status grossly normal Mood: Euthymic mood Affect: Normal affect Speech and Movement: speech and movement normal and speech clear Attitude: cooperative Thought Process: normal Thought Content: Denied hallucinations, no homicidality and no suicidality Insight: fair Judgment: fair Impulse control: fair Exam Physical Exam Vital Signs: Temp Pulse Resp BP Pulse Ox O2 Del Method 97.9 F 57 L 16 121/82 98 Room Air 11/15/23 23:30 11/15/23 23:30 11/15/23 15:30 11/15/23 23:30 11/15/23 23:30 11/15/23 23:30 Assessment/Plan Assessment/Plan (1) Major depressive disorder: Plan Patient reports feeling better and denied SI/HI. Continue Lexapro to 10 mg p.o. every morning Anticipate discharge tomorrow with his . Case management to safety plan. Typical short- and long-term side effects of the proposed medication regimen, including contraindications and clinically significant interactions, were discussed with the patient. Side effects include but not limited to sedation, overdose, weight gain, and appetite changes and advised the patient not to driveor drink while taking these meds. Patient should reach out to medical provider if any of these side effects occur. We also discussed risk of overdose with thiscurrent med regimen. Patient voiced understanding of benefits and agreement withtreatment plan. Targeted symptoms and signs, possible therapeutic benefit, side effect and riskswere discussed. No abnormal movements noted on exam. AIMS is Zero. Involve friends/family members if applicable to coordinate care and ensure appropriate outpatient appointments are scheduled prior to discharge. I have reviewed evaluations by other providers (ER notes, nurses and staff) Prognosis: Factors to be considered are the chronicity and severity of the symptoms and signs, associated comorbidity, and differential diagnosis-motivation to get in treatment, response to treatment, adherenceto treatment recommendations, and using skills. The patient's verbal consent was provided. Documented By: Terrance Hartley MD [id number] Signed By: <Electronically signed by Terrance Hartley MD> 11/16/23 0646 [facility] Work Phone: 1(930) 550-699606-22-2024 Progress note Author Terrance chambers [facility] November 15, 2023 7:04amNote Date/TimeJune 2023 7:04[place], [place] [address] Psychiatry Progress Note Signed Patient: Dexter Summers MR#: [id number] : 1975 Acct:[id number] Age/Sex: 48 / M Adm Date: 4 Loc: Room: [address] [place] [address] Type : ADM IN Attending Dr: Terrance Hartley MD Copies to: ~ Date of Service: 11/15/2023 Subjective Subjective Narrative: Patient said he is still feels depressed rating his depression at 5 out of 10 with 10 being the worst. He said he participated in some groups yesterday. He istolerating Lexapro 5 mg and is open to increasing it to the 10 mg. His talked to the test case developer and notes were reviewed. Mental Status Exam: Appearance: grossly normal Mental Status: mental status grossly normal Mood: dysthymic mood Affect: dysphoric affect Speech and Movement: speech and movement normal and speech clear Attitude: cooperative Thought Process: normal Thought Content: Reports auditory hallucinations and denies paranoid thoughts, no homicidally, reports suicidality Insight: Intact Judgment: Intact Exam Physical Exam Vital Signs: Temp Pulse Resp BP Pulse Ox O2 Del Method 97.8 F 61 18 136/88 97 Room Air 11/14/23 20:40 11/14/23 20:40 11/14/23 20:40 11/14/23 20:40 11/14/23 20:40 11/14/23 20:40 Assessment/Plan Assessment/Plan (1) Major depressive disorder: Plan Patient reports he is still feeling depressed. Increase Lexapro to 10 mg p.o. every morning Continue home meds Typical short- and long-term side effects of the proposed medication regimen, including contraindications and clinically significant interactions, were discussed with the patient. Side effects include but not limited to sedation, overdose, weight gain, and appetite changes and advised the patient not to driveor drink while taking these meds. Patient should reach out to medical provider if any of these side effects occur. We also discussed risk of overdose with thiscurrent med regimen. Patient voiced understanding of benefits and agreement withtreatment plan. Targeted symptoms and signs, possible therapeutic benefit, side effect and riskswere discussed. No abnormal movements noted on exam. AIMS is Zero. Involve friends/family members if applicable to coordinate care and ensure appropriate outpatient appointments are scheduled prior to discharge. I have reviewed evaluations by other providers (ER notes, nurses and staff) Prognosis: Factors to be considered are the chronicity and severity of the symptoms and signs, associated comorbidity, and differential diagnosis-motivation to get in treatment, response to treatment, adherenceto treatment recommendations, and using skills. The patient's verbal consent was provided. Documented By: Terrance Hartley MD [id number] Signed By: <Electronically signed by Terrance Hartley MD> 11/15/23 0704 [facility] Work Phone: 1(427) 349-663406-21-2024 Progress note Author Terrance chambers [facility] November 14, 2023 6:58amNote Date/TimeJun2023 6:56am[place] [address] Psychiatry Progress Note Signed Patient: Dexter Summers MR#: [id number] : 1975 Acct:[id number] Age/Sex: 48 / M Adm Date: 4 Loc: Room: [address] [place] [address] Type : ADM IN Attending Dr: Terrance Hartley MD Copies to: ~ Date of Service: 11/14/2023 Subjective Subjective Narrative: Per nursing notes, Received phone call from , Yudith. She voiced concerns of patient stopping all medications approximately 2 months ago with the exception of Apriprazole which he stopped about 2to 3 weeks ago. Educated pt and that it is not recommended to stop all mediations abruptly. Some medications need to be tapered off and have a doctor monitor when doing so. provided a list of home medications: citalopram, apriprazole, nabumetone (Relafen). states patient has had sideeffects from trazodone, got reallysleepy, hard to wake up and unable to get an erection at all , Oxcarbazepine (trileptal) Unable to get an erection at all , cymbalta made him have violent nausea . states she is very worried about him. Reassurance given, stated that patient is being monitored and medications being restarted or new medications prescribed. Patient said he is still feels depressed and hopeless. He has been keeping to himself. He has a flat affect on exam and said his energy is low. He tried several medications before and did not find anything that worked. He said visited yesterday and she is concerned about him. Mental Status Exam: Appearance: grossly normal Mental Status: mental status grossly normal Mood: dysthymic mood Affect: dysphoric affect Speech and Movement: speech and movement normal and speech clear Attitude: cooperative Thought Process: normal Thought Content: Reports auditory hallucinations and denies paranoid thoughts, no homicidally, reports suicidality Insight: Intact Judgment: Intact Exam Physical Exam Vital Signs: Temp Pulse Resp BP Pulse Ox O2 Del Method 97.7 F 62 18 111/73 97 Room Air 11/13/23 19:47 11/13/23 19:47 11/13/23 19:47 11/13/23 19:47 11/13/23 19:47 11/13/23 19:47 Assessment/Plan Assessment/Plan (1) Major depressive disorder: Plan Patient reports suicidal thoughts and hopelessness Monitor suicidal behaviors for safety of self (15-minute face check). Recommend attending groups and psychoeducation for building coping skills. Continue Lexapro 5 mg p.o. every morning Continue home meds Typical short- and long-term side effects of the proposed medication regimen, including contraindications and clinically significant interactions, were discussed with the patient. Side effects include but not limited to sedation, overdose, weight gain, and appetite changes and advised the patient not to driveor drink while taking these meds. Patient should reach out to medical provider if any of these side effects occur. We also discussed risk of overdose with thiscurrent med regimen. Patient voiced understanding of benefits and agreement withtreatment plan. Targeted symptoms and signs, possible therapeutic benefit, side effect and riskswere discussed. No abnormal movements noted on exam. AIMS is Zero. Involve friends/family members if applicable to coordinate care and ensure appropriate outpatient appointments are scheduled prior to discharge. I have reviewed evaluations by other providers (ER notes, nurses and staff) Prognosis: Factors to be considered are the chronicity and severity of the symptoms and signs, associated comorbidity, and differential diagnosis-motivation to get in treatment, response to treatment, adherenceto treatment recommendations, and using skills. The patient's verbal consent was provided. Documented By: Terrance Hartley MD [id number] Signed By: <Electronically signed by Terrance Hartley MD> 11/14/23 0658 [facility] Work Phone: 1(712) 839-423306-20-2024 History and physical note Author Terrance chambers [facility] November 13, 2023 9:44amNote Date/TimeJun2023 8:41[place] [address] Psychiatry H&P Signed Patient: Dexter Summers MR#: [id number] : 1975 Acct:[id number] Age/Sex: 48 / M Adm Date: 4 Loc: Room: [address] [place] [address] Type: ADM IN Attending Dr: Terrance Hartley MD Copies to: MD Sarmad Rg MD~ Date of Service: 11/13/2023 HPI Narrative Narrative: Mr. Summers is a 48 year old male with no significant past medical history who presents for inpatienttreatment due to concern for depression and suicidal ideation. Reportedly, patient presented to theER complaints of depression and thoughts of suicide. He states he had thoughts of just ending his life. He denies any specific plan but states he thought about maybe a firearm, states he does not have a firearm at home. States has been going on for several weeks. He was recently on Abilify and stopped 3 weeks ago, he states that his doctor put him on for a mood stabilizer. Patient was personally seen by me on the day of the encounter. I reviewed the history and performedthe cavazos elements of the assessment. I formulated the planof care and confirmed this with the medical student as noted below At the time of the interview, patient presented as depressed. Patient reports of having thoughts ofharm to self for the past few weeks. He has no past attempts or thoughts prior to this event. He reports that he is fed up with life. Patient endorses that his thoughts come and go, but have increased in frequency. He started taking Abilify prescribed by his family med doctor for mood stabilization. He reports that they were not helpful and stopped taking it3 weeks ago. He reports that he would shoot himself but denies any firearms or weapons at home. Patient reports having auditory hallucinations telling him to kill himself. Report's his anxiety/depression at a 9 on a 0-10 anxiety/depression scale. Report's decreased appetite, weight loss, awaken frequently at night, and financial issues. States that he lives with his and they have been arguing frequently recently. 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 States his support is his . Patient denies any psych history. Past psych history: Denies Past hospitalizations: Denies Hospital psychiatric hospitalizations Past suicide attempts: Denies Previous medications: Abilify stopped 3 weeks ago Alcohol and drug use: Denies alcohol, denies drug use Living: Lives with Employment: Employed Review of symptoms: Constitutional: Denies chills and Denies fever(s) Eyes: Denies change in vision ENT: Reports abnormal hearing Cardiovascular: Denies chest pain Respiratory: Denies chest congestion and Denies cough Gastrointestinal: Denies change in bowel habits Genitourinary: Denies dysuria Musculoskeletal: Denies headache Integumentary/Breasts: Denies dry skin Neurologic: Denies abnormal gait and Denies abnormal movements Psychiatric: Reports depression and suicidal ideation Physical exam: Const: cooperative Nutritional Appearance: average body habitus Orientation: alert, awake and oriented x3 HEENT: Head normal to inspection, hearing grossly normal bilaterally, external nose normal, face symmetric Eyes: appearance normal, both eyes and all related structures, sclerae normal Neck: normal visual inspection and full ROM Resp: normal respiratory effort, able to speak in complete sentences and symmetric chest movement Cardio: regular rate GI: normal to inspection and non-distended : deferred Skin: no rashes or lesions noted Neuro: Normal olfaction CNI: normal olfaction CNII: Visual ramirez intact, CNIII,IV,: EOM intact, no nystagmus. Pupils equal, round, reactive to light and accommodation, CNV: Sensation intact to light touch, CNVII: Raises eyebrows,smile/frown, puff out cheeks symmetrically, CNVIII: Hearing intact b ilaterally, CNIX,X: Voice normal, soft palate elevation normal, symmetrical, CNXI: Shoulder shrug strong, equal bilaterally, CNXII: Tongue protrusion midline, movement symmetrical. Extrem: normal to inspection and full ROM Mental Status Exam: Appearance: grossly normal Mental Status: mental status grossly normal Mood: dysthymic mood Affect: dysphoric affect Speech and Movement: speech and movement normal and speech clear Attitude: cooperative Thought Process: normal Thought Content: Reports auditory hallucinations and denies paranoid thoughts, no homicidally, reports suicidality Insight: Intact Judgment: Intact [facility] Medical History (Updated 11/12/23 @ 20:31 by Mary Ellen Seymour RN) Smoker Herpes Sleep apnea No pertinent past medical history Surgical History (Updated 11/12/23 @ 20:32 by Mary Ellen Seymour RN) Hx of tonsillectomy No pertinent past surgical history Family History (Updated 11/12/23 @ 20:36 by Mary Ellen Seymour RN) Father Diabetes mellitus type 1 Myocardial infarction S/P CABG x 4 Mother Diabetes mellitus type 1 Social History Smoking Status: Current every day smoker Tobacco Type: cigarettes Substance Use Type: None Meds Medications and Allergies Allergies No Known Allergies Allergy (Verified 03/07/17 12:05) Home Medications valacyclovir 1 gram tablet 1,000 mg PO DAILY 03/07/17 [History Confirmed 11/12/23] aripiprazole 5 mg tablet 5 mg PO DAILY 11/12/23 [History Confirmed 11/12/23] hyoscyamine sulfate 0.125 mg sublingual tablet 0.125 mg sublingual QID PRN dyspepsia 11/12/23 [History Confirmed 11/12/23] methocarbamol 750 mg tablet 750 mg PO QID 11/12/23 [History Confirmed 11/12/23] Exam Physical Exam Vital Signs: Temp Pulse Resp BP Pulse Ox O2 Del Method 97.7 F 82 18 107/73 95 Room Air 11/13/23 07:30 11/13/23 07:30 11/13/23 07:30 11/13/23 07:30 11/13/23 07:30 11/13/23 07:30 Results - Psychiatry Labs 11/12/23 17:30 11/12/23 17:30 Psychiatry Labs: 11/12/23 11/12/23 17:26 17:30 RBC 5.09 Hgb 16.2 Hct 48.8 MCV 95.9 MCH 31.9 MCHC 33.3 RDW 13.8 Plt Count 261 MPV 9.3 Sodium 140 Potassium 4.2 Chloride 105 Carbon Dioxide 28.6 Anion Gap 10.6 BUN 9 Creatinine 1.13 Calcium 9.5 Total Bilirubin 0.8 AST 14 ALT 9 Alkaline Phosphatase 57 Total Protein 7.1 Albumin 4.4 Urine Color Light-yellow Urine Appearance Clear Urine pH 6.5 Ur Specific [place] 1.007 Urine Protein Negative Urine Glucose (UA) Normal Urine Ketones Negative Urine Occult Blood Negative Urine Nitrite Negative Ur Leukocyte Esterase Negative Assessment/Plan (1) Major depressive disorder: Plan Admit to 1S for management of depression and to ensure safety of self due to SI. Monitor suicidal behaviors for safety of self (15-minute face check). Recommend attending groups and psychoeducation for building coping skills. Stop Abilify. Start Lexapro 5 mg p.o. every morning Continue home meds Typical short- and long-term side effects of the proposed medication regimen, including contraindications and clinically significant interactions, were discussed with the patient. Side effects include but not limited to sedation, overdose, weight gain, and appetite changes and advised the patient not to driveor drink while taking these meds. Patient should reach out to medical provider if any of these side effects occur. We also discussed risk of overdose with thiscurrent med regimen. Patient voiced understanding of benefits and agreement withtreatment plan. Targeted symptoms and signs, possible therapeutic benefit, side effect and riskswere discussed. No abnormal movements noted on exam. AIMS is Zero. Involve friends/family members if applicable to coordinate care and ensure appropriate outpatient appointments are scheduled prior to discharge. I have reviewed evaluations by other providers (ER notes, nurses and staff) Prognosis: Factors to be considered are the chronicity and severity of the symptoms and signs, associated comorbidity, and differential diagnosis-motivation to get in treatment, response to treatment, adherenceto treatment recommendations, and using skills. The patient's verbal consent was provided. Documented By: Terrance Hartley MD [id number] Signed By: <Electronically signed by Terrance Hartley MD> 11/13/23 0944 [facility] Work Phone: 1([phone]) [phone] NoteOPERATIVE NOTE OPERATION DATE: 08/21/2022 PREOPERATIVE DIAGNOSIS: Colorectal screening. POSTOPERATIVE DIAGNOSIS: Normal colonoscopy to cecum. PROCEDURE: Colonoscopy to cecum. SURGEON: Meagan Maza M.D. ANESTHESIA: Monitored anesthesia care. ESTIMATED BLOOD [...] room in good condition. CC: Sarmad Jefferson M.D.[id number] NoteChief Complaint consultation for abdominal cramping and diarrhea HPI Staff 46 year old male presents on consultation from Dr. Jefferson and abdominal cramping and loose stools.Reports 1.5 months of stated symptoms. Bentyl was [...] referred for 1 1/2 month h/o ower abdcrampy pain and loose stools; improved with Levsin; [...] swallowing difficulties, no hearing loss, no ear infection(s),no nose bleeds. Cardiovascular: normal blood pressure, no [...] last 30 days Tobacco Use:. Former smokeless tobaccouser, quit more than 30 days ago Smokeless Tobacco Use:. Cigarettes, Oral, 1 per day. Started age 17.0 Years. Yes, 03/29/2022 Family History Diabetes mellitus type 1: Father. Diabetes mellitus type 2: Mother. Hypertension: Mother.[facility] HospitalComment on above:Result Comment: Electronically Signed By: SHAUNNA GOLDSTEIN, Meagan Michele\Date and Time Signed: 03/29/22 15:14 EDTEvaluation + Plan note No data available for this section General Surgery [place] Evaluation noteNo assessment information available [facility] Work Phone: Evaluation note* Diagnosis Onset Date Resolution Status Major depressive disorder acute [facility] Work Phone: Evaluation note* Diagnosis Major depressive disorder, recurrent, moderate (HCC) (CMS/HCC)- Primary Major depressive disorder, recurrent episode, moderate Generalized anxiety disorder (CMS/HCC) Generalized anxiety disorder Gastroesophageal reflux disease without esophagitis Esophageal reflux COPD, moderate (CMS/HCC) Tobacco use disorder, continuous Tobacco use disorder Gastroenteritis Other and unspecified noninfectious gastroenteritis and colitis documented in this encounter [facility] Diagnosis MDD (major depressive disorder), recurrent episode, mild (HCC) (CMS/HCC)- Primary Generalized anxiety disorder (CMS/HCC) Generalized anxiety disorder Pyriformis syndrome, right COPD, moderate (CMS/HCC) Irritable bowel syndrome with diarrhea Irritable bowel syndrome BERTRAND (obstructive sleep apnea) Obstructive sleep apnea (adult) (pediatric) MDD (major depressive disorder), recurrent episode, mild (HCC) (CMS/HCC)- Primary Generalized anxiety disorder (CMS/HCC) Generalized anxiety disorder Chronic right-sided low back pain with right-sided sciatica COPD, moderate (CMS/HCC) BERTRAND (obstructive sleep apnea) Obstructive sleep apnea (adult) (pediatric) Major depressive disorder, recurrent, moderate (CMS/HCC)- Primary Major depressive disorder, recurrent episode, moderate Generalized anxiety disorder (CMS/HCC) Generalized anxiety disorder COPD, moderate (CMS/HCC) Major depressive disorder, recurrent, moderate (CMS/HCC)- Primary Major depressive disorder, recurrent episode, moderate Generalized anxiety disorder (CMS/HCC) Generalized anxiety disorder Gastroesophageal reflux disease without esophagitis Esophageal reflux Major depressive disorder, recurrent, moderate (CMS/HCC)- Primary Major depressive disorder, recurrent episode, moderate Generalized anxiety disorder (CMS/HCC) Generalized anxiety disorder Gastroesophageal reflux disease without esophagitis Esophageal reflux COPD, moderate (CMS/HCC) Tobacco use disorder, continuous Tobacco use disorder Gastroenteritis Other and unspecified noninfectious gastroenteritis and colitis Major depressive disorder, recurrent, moderate (CMS/HCC)- Primary Major depressive disorder, recurrent episode, moderate Generalized anxiety disorder (CMS/HCC) Generalized anxiety disorder COPD, moderate (CMS/HCC) Gastroesophageal reflux disease without esophagitis Esophageal reflux Tobacco use disorder, continuous Tobacco use disorder Fatigue, unspecified type documented in this encounter [facility]* Diagnosis Unintentional weight loss- Primary Loss of weight Lower abdominal pain Abdominal pain, other specified site Epigastric pain Abdominal pain, epigastric [facility] Diagnosis Biliary colic- Primary Calculus of gallbladder without mention of cholecystitis or obstruction documented in this encounter [facility]* Diagnosis MDD (major depressive disorder), recurrent episode, mild (HCC) (CMS/HCC)- Primary Generalized anxiety disorder (CMS/HCC) Generalized anxiety disorder Pyriformis syndrome, right COPD, moderate (CMS/HCC) Irritable bowel syndrome with diarrhea Irritable bowel syndrome BERTRAND (obstructive sleep apnea) Obstructive sleep apnea (adult) (pediatric) MDD (major depressive disorder), recurrent episode, mild (HCC) (CMS/HCC)- Primary Generalized anxiety disorder (CMS/HCC) Generalized anxiety disorder Chronic right-sided low back pain with right-sided sciatica COPD, moderate (CMS/HCC) BERTRAND (obstructive sleep apnea) Obstructive sleep apnea (adult) (pediatric) Major depressive disorder, recurrent, moderate (CMS/HCC)- Primary Major depressive disorder, recurrent episode, moderate Generalized anxiety disorder (CMS/HCC) Generalized anxiety disorder COPD, moderate (CMS/HCC) Major depressive disorder, recurrent, moderate (CMS/HCC)- Primary Major depressive disorder, recurrent episode, moderate Generalized anxiety disorder (CMS/HCC) Generalized anxiety disorder Gastroesophageal reflux disease without esophagitis Esophageal reflux Major depressive disorder, recurrent, moderate (CMS/HCC)- Primary Major depressive disorder, recurrent episode, moderate Generalized anxiety disorder (CMS/HCC) Generalized anxiety disorder Gastroesophageal reflux disease without esophagitis Esophageal reflux COPD, moderate (CMS/HCC) Tobacco use disorder, continuous Tobacco use disorder Gastroenteritis Other and unspecified noninfectious gastroenteritis and colitis Major depressive disorder, recurrent, moderate (CMS/HCC)- Primary Major depressive disorder, recurrent episode, moderate Generalized anxiety disorder (CMS/HCC) Generalized anxiety disorder COPD, moderate (CMS/HCC) Gastroesophageal reflux disease without esophagitis Esophageal reflux Tobacco use disorder, continuous Tobacco use disorder Fatigue, unspecified type Encounter for preoperative assessment- Primary Centrilobular emphysema (CMS/HCC) Calculus of gallbladder without cholecystitis without obstruction documented in this encounter [facility]* Diagnosis Status post laparoscopic cholecystectomy- Primary Other postprocedural status [facility] No data available for this section General Surgery [place] InstructionsNot on filedocumented in this encounter [facility] filedocumented in [facility] filedocumented in this [facility] on filedocumented in this [facility] No data available for this section General Surgery [place] Summary Purpose Family History Relationship Condition Age at Onset Recorded Date/T rick father Type 1 diabetes mellitus Unknown Myocardial infarctionUnknownStatus post four vessel coronary artery bypass UnknownNot SpecifiedType 1 diabetes mellitusUnknown Advance Directives Advance Directive Response Recorded Date/ Time Advance Directives No January 10:53am Chief Complaint and Reason for Visit Chief Complaint Mental eval Chief Complaint Mental eval Mental evalReason for VisitMajor depressive disorder Additional Source Comments Patient Care team informatio n (unrecognized section and content) Team Status: Active Member Role Status Dates Sarmad Jefferson MD Primary Care Provider Active Team Status: Inactive Member Role Status Dates Sarmad Jefferson MD Primary Care Provider Active S tart: November 12, 2023 End: November 16Brigitte Johansen ProviderActiveStart: November 12, 2023 End: November 16Dale Head Provider, Attending Provider ActiveStart: November 12, 2023 End: November 17, 2023 Team Status: Active Member Role Status Dates Sarmad Jefferson MD Primary Care Provider Active S tart: November 13, 2023 Brigitte Sanchez ProviderActiveStart: November 13, 2023 Dale Rg Provider, Attending Provider, Other Provider ActiveStart: November 13, 2023 Team Status: Active Member Role Status Dates Sarmad Jefferson MD Primary Care Provider Active S tart: November 12, 2023 Brigitte Sanchez ProviderActiveStart: November 12, 2023 Terrance Hartley [facility] Provider, Attending ProviderActiveStart: November 12, 2023 Team MemberRelationshipSpecialtyStart DateEnd Date Sarmad Jefferson MD [address] [place] [phone] PCP - GeneralFamily Medicine09/12/23 Sarmad Jefferson MD [address] [place] [address] PCP - [employer]10/25/23Team MemberRelationshipSpecialtyStart DateEnd Date Sarmad Jefferson MD [address] [place] [address] [facility] - [facility]/12/23 Sarmad Jefferson MD [address] [place] [address] PCP - [employer]10/25/23Team MemberRelationshipSpecialtyStart DateEnd Date Sarmad Jefferson MD [address] [place] [address] PCP - GeneralFamily Medicine09/12/23 Sarmad Jefferson MD [address] [place] [address] PCP - [employer]10/25/23Team MemberRelationshipSpecialtyStart DateEnd Date Sarmad Jefferson MD [address] [place] [address] PCP - GeneralFamily Medicine09/12/23 Sarmad Jefferson MD [address] [place] [address] PCP - [employer]10/25/23Team MemberRelationshipSpecialtyStart DateEnd Date Sarmad Jefferson MD PCP - GeneralFamily Eoppwjjf17/30/20Team MemberRelationshipSpecialtyStart Date End Date Sarmad Jefferson MD PCP - GeneralFamily Vxqcemjo72/30/20Team MemberRelationshipSpecialtyStart Date End Date Sarmad Jefferson MD PCP - GeneralFamily Vswnqfmg84/30/20Team MemberRelationshipSpecialtyStart Date End Date Sarmad Jefferson MD PCP - GeneralFamily Frejetgh72/30/20Team MemberRelationshipSpecialtyStart Date End Date Sarmad Jefferson MD [address] [place] [address] PCP - GeneralFamily Medicine09/12/23 Sarmad Jefferson MD [address] [place] [address] PCP - [employer]10/25/23Team MemberRelationshipSpecialtyStart DateEnd Date Sarmad Jefferson MD [address] [place] [address] PCP - GeneralFamily Medicine09/12/23 Sarmad Jefferson MD [address] [place] [address] PCP - [employer]10/25/23Team MemberRelationshipSpecialtyStart DateEnd Date Sarmad Jefferson MD PCP - GeneralFamily Amrpsfgs96/30/20Team MemberRelationshipSpecialtyStart Date End Date Sarmad Jefferson MD PCP - GeneralFamily Wkjnlzzm30/30/20Team MemberRelationshipSpecialtyStart Date End Date Sarmad Jefferson MD PCP - GeneralFamily Jqcapvnj13/30/20Team MemberRelationshipSpecialtyStart Date End Date Sarmad Jefferson MD PCP - GeneralFamily Medicine Sarmad Jefferson MD PCP - GeneralFamily Medicine09/12/23 Sarmad Jefferson MD [address] [place] [phone] PCP - [employer]/04/19 Sarmad Jefferson MD [address] [place] [address] PCP - Dorothy Lucas Mariana Mayo, LESTER [address] [place] [address] Registered NurseFamily Medicine (unrecognized sect ion and content) No Status Records FoundNo Status Records FoundNo Status Records FoundNo Status Records FoundNo Status Records FoundNo Status Records FoundNo Status Records Found INFORMATION SOURCE (unrecogn ized section and content) DATE CREATED AUTHOR 08/28/2022 [facility] DATE CREATED AUTHOR AUTHOR'S ORGANIZ ATION 09/03/2022 [facility] DATE CREATED AUTHOR AUTHOR'S ORGANIZ ATION 01/23/2024 [facility] DATE CREATED AUTHOR AUTHOR'S ORGANIZ ATION 08/05/2024 [facility] DATE CREATED AUTHOR AUTHOR'S ORGANIZ ATION 08/07/2024 [facility] DATE CREATED AUTHOR AUTHOR'S ORGANIZ ATION 08/17/2024 [facility] DATE CREATED AUTHOR AUTHOR'S ORGANIZ ATION 08/24/2024 [facility] Goals (unrecognized section and content) Goals may be documented in a n alternate section Reason for Visit (unrecogniz ed section and content) KkptgiFmfpqwqfHwowtl-[id number]-reBvgmkeCphgbbpbDzufflevsFYKP, nausea, unintended weight loss, referred by Dr. ScottpecialtyDiagnoses / ProceduresReferred By ContactReferred To ContactGeneral Surgery Diagnoses Gastroesophageal reflux disease without esophagitis Unintended weight loss Nausea Procedures [facility] OFFICE OUTPATIENT VISIT 60-74 MINS HIGH MDM [id number] (SNOMED CT) - AMB REFERRAL TO GENERAL SURGERY Sarmad Jefferson MD [address] [place] [address] Phone: tel: fax: Meagan Dougherty, [address] [place] [phone] Phone: tel: fax: Referral IDStatusReasonStart DateExpiration DateVisits RequestedVisits [id number]fasr GALLBLADDER ST[facility]CommentsFollow-upSurgical clearance ReasonCommentsPost-opPost op davinci cholecystectomy performed 08/09/24 at [facility] FOR RECORDS PERTAINING TO PATIENTS WHO ARE [...] BE BASED ON THE PRIMARY CLINICAL RECORDS. [facility] [employer] [facility]. provides no warranty or guarantee of the accuracy or completeness of information in this document.
--- NOTE | 2025-04-25 19:29 | ED_ITS ---
HPI HPI - General Adult General Chief complaint: Chest Pain Stated complaint: PAIN LEFT CHEST BELOW HEART Time Seen by Provider: 04/25/25 18:32 Source: patient Mode of arrival: walk-in Limitations: no limitations History of Present Illness HPI narrative: Patient is a 49-year-old male with a PMH of COPD, sleep apnea, and smokes half a pack of cigarettes a day that presents to the emergency department with complaints of 1 week of worsening left chest wall pain. He has a very strenuous job and noticed this pain after working on a car at home one day last week. He has been persistent since then. He will intermittently have some increased shortness of breath, as he does have some baseline the pain is notably between the nipple line and the lower ribs. He denies any trauma. He denies any recent surgery, hospitalization, hemoptysis, DVT/PE history, or hormone use. His father did have a heart attack around 45 years old and ended up having a CABG. Related Data Home Medications ?Medication ?Instructions ?Recorded ?Confirmed No Known Home Medications 04/25/2506/19 Allergies Allergy/AdvReac Type Severity Reaction Status Date / Time clonidine Allergy Unknown Verified 04/25/25 18:29 trazodone Allergy Unknown Verified 04/25/25 18:29 Opioid HPI Opioid Management Most Recent Opioid Data: Last Pain Scale 8 04/25/25, 18:25 Last MAR Pain Assessment 04/25/25, 19:42 Review of Systems ROS Status of ROS 10 or more systems reviewed and unremark able except as noted in history and below PFSH PFS Social History Smoking status: Current every day smoker Little interest or pleasure in doing things: not at all Feeling down, depressed, or hopeless: not at all Exam Narrative Exam Narrative: General: No distress, age-appropriate Skin: Warm, dry, no pallor. No rash. Head: Normocephalic, atraumatic. Neck: Supple, non-tender. Eye: Pupils are equal, round and EOMI. No scleral icterus. Ears, Nose, Mouth, and Throat: No nasal mucosal hypertrophy. Oral mucosa is moist, no posterior oropharynx erythema, uvula is mid-line Cardiovascular: Regular Rate and Rhythm without murmur, gallop or rub. Respiratory: No accessory muscle use or respiratory distress. Lungs are clear to auscultation, mild wheezing throughout lung ramirez, but no rales or rhonchi Chest Wall: no tenderness Back: No midline thoracic or lumbar vertebral tenderness. Musculoskeletal: Full ROM of all extremities, no calf or popliteal tenderness GI: Abdomen is soft, non-distended, non tender to palpation. No masses appreciated. No rebound, guarding, or rigidity noted. Neurological: A&O x4. No cranial nerve dysfunction observed. No truncal ataxia. Moves all extremities. Sensation intact. Psychiatric: Cooperative and interactive. Normal mood and affect. Constitutional Vital Signs, click to edit/add: Last Vital Signs Temp 98.7 F 04/25/25 18:25 Pulse 62 04/25/25 21:00 Resp 15 04/25/25 21:00 BP 133/89 04/25/25 18:27 Pulse Ox 97 04/25/25 21:00 O2 Del Method Room Air 04/25/25 18:25 Documenting provider has reviewed patient's vital signs: yes Course Vital Signs Vital signs: Vital Signs Temperature 98.7 F 04/25/25 18:25 Pulse Rate 81 04/25/25 18:25 Respiratory Rate 18 04/25/25 18:25 Blood Pressure 133/89 04/25/25 18:25 Pulse Oximetry 96 04/25/25 18:25 Oxygen Delivery Method Room Air 04/25/25 18:25 Temperature 98.7 F 04/25/25 18:25 Pulse Rate 62 04/25/25 21:00 Respiratory Rate 15 04/25/25 21:00 Blood Pressure 133/89 04/25/25 18:27 Pulse Oximetry 97 04/25/25 21:00 Oxygen Delivery Method Room Air 04/25/25 18:25 Medical Decision Making [facility] Narrative Medical decision making narrative: 49-year-old male with COPD and BERTRAND presents with 1 week of left-sided chest wall pain after strenuous activity. Pain is localized, reproducible, and worsens with movement, deep breathing, coughing, and sneezing, though present at rest. Exam notable for mild wheezing; vitals stable. Labs significant for WBC 11.6 without left shift, CMP within normal limits, and troponin ?2 normal. EKG shows NSR with right ventricular conduction delay but no ischemic changes. CXR negative for acute pulmonary disease. Pain partially improved with Toradol 30 mg IV and lidocaine patch. HEART score 3 (low risk). Given the localized, pleuritic, and activity-related nature of the pain, musculoskeletal chest wall strain is the most likely etiology. Mild COPD component addressed with inhaler as needed. Cardiac and pulmonary etiologies (ACS, PE, pneumonia) are low probability. Patient discharged with NSAIDs, lidocaine patch, inhaler as needed, activity modification, and return precautions; follow-up with PCP recommended. Differential Diagnosis Differential Diagnosis: COPD related, pleuritis, pneumothorax, ACS Lab Data Lab results reviewed: Yes I reviewed the patient's lab results Labs: Lab Results 04/25/25 04/25/25 Range/Units 18:38 20:32 WBC 11.6 H (4.0-11.0) 10^3/uL RBC 5.03 (4.70-6.10) 10^6/uL Hgb 15.6 (14.0-18.0) g/dL Hct 44.9 (42.0-54.0) % MCV 89.3 (80.0-94.0) fL MCH 31.0 (25.9-34.0) pg MCHC 34.7 (29.9-35.2) g/dL RDW 13.0 (11.0-15.0) % Plt Count 253 (150-450) 10^3/uL MPV 10.5 (9.5-13.5) fL Neut % (Auto) 52.3 (43.0-75.0) % Lymph % (Auto) 37.9 (20.5-60.0) % Hudspeth % (Auto) 8.1 (1.7-12.0) % Eos % (Auto) 0.8 L (0.9-7.0) % Baso % (Auto) 0.6 (0.2-2.0) % Neut # (Auto) 6.1 (1.4-6.5) 10^3/uL Lymph # (Auto) 4.4 H (1.2-3.8) 10^3/uL Hudspeth # (Auto) 0.9 H (0.3-0.8) 10^3/uL Eos # (Auto) 0.1 (0.0-0.7) 10^3/uL Baso # (Auto) 0.1 (0.0-0.1) 10^3/uL Abs Immat Gran (auto) 0.03 (0.00-0.03) 10^3/uL Imm/Tot Granulo (auto) 0.3 (0.0-0.5) % Sodium 140 (136-145) mmol/L Potassium 3.7 (3.5-5.1) mmol/L Chloride 105 (98-107) mmol/L Carbon Dioxide 25.4 (21.0-32.0) mmol/L Anion Gap 13.3 BUN 12.0 (7.0-18.0) mg/dL Creatinine 0.96 (0.70-1.30) mg/dL Est GFR ( Amer) >60 (>=60 mL/min/1.73m^2) Est GFR (Non-Af Amer) >60 (>=60 mL/min/1.73m^2) BUN/Creatinine Ratio 12.5 Glucose 88 (74-106) mg/dL Calcium 9.0 (8.5-10.1) mg/dL Total Bilirubin 0.6 (0.2-1.0) mg/dL AST 12 L (15-37) U/L ALT 20 (16-63) U/L Alkaline Phosphatase 68 (46-116) U/L Troponin I High Sens 5.7 5.1 (4.0-76.1) pg/mL Total Protein 7.3 (6.4-8.2) g/dL Albumin 4.1 (3.4-5.0) g/dL Globulin 3.2 g/dL Albumin/Globulin Ratio 1.3 Imaging Data Chest x-ray: Attestation: I have reviewed the pertinent imaging results. Radiologist's impression: ITS Impressions Chest X-Ray 04/25/25 18:32 IMPRESSION: Negative acute pleural-parenchymal disease. Impression dictated by: Alhaji Chou M.D. 04/25/2025 7:53 PM Dictation Location: [place] [address] Electronically authenticated by: [id number] Y Date: 04/25/2025 19:53 ECG Data Attestation: ?I have reviewed the pertinent ECG results. Discharge Plan Discharge Chief Complaint: Chest Pain Clinical Impression: Atypical chest pain Patient Disposition: Home, Self-Care Time of Disposition Decision: 21:06 Condition: Good Mode of Transportation: Private Vehicle Prescriptions / Home Meds: No Action No Known Home Medications Print Language: Filipino Instructions: Chest Wall Pain (ED) Additional Instructions: Pain Management * NSAIDs: Continue as prescribed (Toradol was given IV; can transition to oral ibuprofen or naproxen) * Lidocaine patch: Apply to painful area as needed, up to 3 patches per day * Rest: Avoid heavy lifting, strenuous activity, or movements that worsen pain for several days * Ice or heat: Apply 15?20 minutes at a time to the affected area COPD / Breathing * Wheezing noted on exam ? use rescue inhaler (albuterol ? ipratropium) if shortness of breath worsens * Monitor oxygen saturation at home, if available; seek care if O2 <88% * Avoid smoke exposure; quit smoking support recommended When to Seek Medical Attention (Return Precautions) Go to the ER immediately if you experience: * New or worsening chest pain (pressure, squeezing, or radiating to arm/jaw/back) * Shortness of breath out of proportion to your baseline * Fainting, dizziness, or palpitations * Fever, chills, or productive cough with green/yellow sputum * Blood in sputum (hemoptysis) Activity * Avoid strenuous activities and heavy lifting for several days * Gentle stretching is allowed if it does not worsen pain * Gradually return to normal activity as pain improves Follow-Up * Primary Care Provider: Within 3?5 days * Cardiology: Only if chest pain changes or persists * Continue routine COPD follow-up Medications at Discharge * NSAID (oral, if prescribed) * Lidocaine patch (as needed) * Rescue inhaler for COPD (as prescribed) Additional Advice * Stay hydrated * Maintain regular sleep and nutrition * Avoid smoking; consider smoking cessation support Referrals: Sarmad Rosenberg MD [Primary Care Provider, [facility]] - 1 week Discharge Date/Time: 04/25/25 21:17
[2025-04-25] MEDS: KETOROLAC TROMETHAMINE 30 MG/ML VIAL IVP (19:42)
[2025-04-25] MEDS: LIDOCAINE 5% PATCH 1 PATCH TOPICAL (21:04)
== END 2025-04-25 21:17 | disposition home or self-care (01) ==
PROVIDERS: Emergency Medicine; Emergency Provider Internal Medicine; PCP Family Medicine
DX: R07.89 Other chest pain (principal); J44.9 Chronic obstructive pulmonary disease, unspecified; F17.210 Nicotine dependence, cigarettes, uncomplicated; G47.33 Obstructive sleep apnea (adult) (pediatric)
CPT/HCPCS: 36415; 71045; 80053; 84484; 85025; 93005; 96374; 99285; J1885